=== PATIENT | male | born 1955 | race Caucasian/White ===

== ENCOUNTER 2017-06-24 08:07 | Emergency (ER) | payer OTHER ==
[~2017-06-24] VITALS: Ht 160 cm; Wt 89.0 kg
[2017-06-24 08:11] VITALS: Ht 160 cm; Wt 89.0 kg
[2017-06-24] MEDS ORDERED: DIPHENHYDRAMINE 25 MG CAP PO ONE (09:00)
[2017-06-24] MEDS ORDERED: LABETALOL HCL 20MG INJ IV ONE (09:00)
[2017-06-24] MEDS ORDERED: BENZTROPINE 1 MG TAB PO ONE (09:00)
[2017-06-24] MEDS ORDERED: HYDR12.58 PO (09:02)
[2017-06-24] MEDS ORDERED: CHLO25TA13 PO (09:02)
[2017-06-24] MEDS ORDERED: BENA40TA41 PO (09:03)
[2017-06-24] MEDS ORDERED: LABE300T PO (09:04)
[2017-06-24] MEDS ORDERED: TAMS-14 PO (09:04)
[2017-06-24] MEDS ORDERED: BEN50 PO (09:05)
[2017-06-24] MEDS ORDERED: NIFE30TA60 PO (09:05)
[2017-06-24] MEDS ORDERED: ASPI-664 PO (09:06)
[2017-06-24] MEDS ORDERED: ARIP2TAB8 PO (09:06)
[2017-06-24] MEDS ORDERED: FLUO20CA22 PO (09:06)
[2017-06-24 09:30] LABS: BASOPHILS % 0.5 % (0.0-2.0); EOSINOPHILS # 0.1 10^3/ul (0.0-0.5); EOSINOPHILS % 1.6 % (0.0-7.0); HEMATOCRIT 45.2 % (42.0-52.0); LYMPHOCYTES % 22.1 % (15.0-51.0); MEAN CORPUSCULAR HEMOGLOBIN 28.6 pg (29.0-33.0); MEAN CORPUSCULAR HGB CONC 33.2 g/dl (32.0-37.0); MEAN CORPUSCULAR VOLUME 86.1 fl (82.0-101.0); MEAN PLATELET VOLUME 10.3 fl (7.4-10.4); MONOCYTE # 0.4 10^3/ul (0.3-0.9); MONOCYTES % 4.4 % (0.0-11.0); NEUTROPHIL # 6.3 10^3/ul (1.6-7.5); NEUTROPHILS % 71.2 % (39.0-77.0); PLATELET COUNT 203 10^3/UL (140-415); RED BLOOD COUNT 5.25 10^6/ul (4.70-6.10); WHITE BLOOD COUNT 8.8 10^3/ul (4.8-10.8)
--- NOTE | 2017-06-24 09:37 | RADRPT ---
PROCEDURE: CT Brain without contrast. CLINICAL INDICATION: Neurologic deficit TECHNIQUE: A CT of the brain was performed on multidetector high-resolution CT scanner utilizing a xial sections from the skull base through the vertex without contrast. One or more of the following dose reduction techniques were used: Automated exposure control, Adjustment of the mA and/or kV acc ording to patient size, and/or use of iterative reconstruction technique. DOSE: CTDI = 44 mGy and the DLP = 810 mGy-cm. COMPARISON: None available FINDINGS: No acute intracranial hemorrhage or midline shift. Mild hypoattenuation of the cerebral white matter is compatible with chronic microvascular ischemic changes. Vascular calcifications. Enlarged ventri cles with relative effacement of sulci at the vertex may be due to central greater than peripheral v olume loss. No significant opacification of the visualized paranasal sinuses or mastoids. IMPRESSION: No acute intracranial hemorrhage or midline shift. Mild chronic microvascular disease and intracranial atherosclerosis. Enlarged ventricles with relative effacement of sulci at the vertex may be due to central greater th an peripheral volume loss. Alternatively in the appropriate clinical setting, normal pressure hydroc ephalus may also have this appearance. RPTAT: AA .Geovanny Mccartney MD, Date Time Electronically viewed and signed by .Geovanny Mccartney MD, MD on 06/24/2017 09:36 .T/
[2017-06-24 09:58] LABS: ALANINE AMINOTRANSFERASE 37 IU/L (13-69); ALBUMIN 4.3 g/dl (3.3-4.9); ALBUMIN/GLOBULIN RATIO 1.22; ALKALINE PHOSPHATASE 67 IU/L (42-121); ANION GAP 15 (8-16); ASPARTATE AMINO TRANSFERASE 25 IU/L (15-46); BILIRUBIN,INDIRECT 0.4 mg/dl (0-1.1); BILIRUBIN,TOTAL 0.4 mg/dl (0.2-1.3); BLOOD UREA NITROGEN 18 mg/dl (7-20); CALCIUM 10.2 mg/dl (8.4-10.2); CARBON DIOXIDE 28 mmol/L (21-31); CHLORIDE 104 mmol/L (97-110); CREATININE 1.13 mg/dl (0.61-1.24); GLUCOSE 138 mg/dl (70-220); POTASSIUM 4.1 mmol/L (3.5-5.1); SODIUM 143 mmol/L (135-144); TOTAL PROTEIN 7.8 g/dl (6.1-8.1)
[2017-06-24 10:11] LABS: TROPONIN-I < 0.012 ng/ml (0.00-0.12)
--- NOTE | 2017-06-24 11:24 | ERD ---
ER Documentation Chief Complaint Date/Time DATE: 06/24/17 TIME: 10:55 Chief Complaint HTN, FEELS SHAKY AT TIMES, HAS TREMORS ON HANDS HPI Patient is a 61-year-old male with schizophrenia and high blood pressure who presents with high blood pressure. The patient has a twitching of the mouth and arm recently. It started 2 days ago. He was told by his doctor to go to the emergency department. He had difficulty with standing. He has had no new medications. Upon review of old medical records this is the patient's first visit to the emergency department. ROS All systems reviewed and are negative except as per history of present illness. Medications Home Meds Reported Medications Aripiprazole* (Abilify*) 2 Mg Tablet, 2 MG PO DAILY, #30 TAB 06/24/17 Aspirin (Low Dose Aspirin) 81 Mg Tablet.dr, 81 MG PO DAILY, #30 TAB 06/24/17 Fluoxetine Hcl* (Fluoxetine Hcl*) 20 Mg Capsule, 20 MG PO DAILY, CAP 06/24/17 Diphenhydramine Hcl* (Benadryl*) 50 Mg Cap, 50 MG PO Q6 Y for ITCHING, CAP 06/24/17 Nifedipine* (Nifedipine ER*) 30 Mg Tablet.sa, 30 MG PO DAILY, TAB.SA 06/24/17 Labetalol Hcl* (Labetalol Hcl*) 300 Mg Tablet, 300 MG PO BID, TAB 06/24/17 Tamsulosin Hcl* (Flomax*) 0.4 Mg Cap.er.24h, 0.4 MG PO DAILY, CAP 06/24/17 Benazepril Hcl* (Benazepril Hcl*) 40 Mg Tablet, 40 MG PO DAILY, #30 TAB 06/24/17 Chlorthalidone* (Chlorthalidone*) 25 Mg Tablet, 25 MG PO DAILY, TAB 06/24/17 Hydrochlorothiazide* (Hydrochlorothiazide*) 12.5 Mg Tablet, 12.5 MG PO DAILY, # 30 TAB 06/24/17 Allergies Allergies: Coded Allergies: No Known Allergy (Unverified , 06/24/17) PMhx/Soc History of Surgery: No Anesthesia Reaction: No Hx Neurological Disorder: Yes (dementia) Hx Respiratory Disorders: No Hx Cardiac Disorders: Yes (htn) Hx Psychiatric Problems: Yes (schizophrenia) Hx Miscellaneous Medical Probl: Yes (borderline DM) Hx Alcohol Use: No Hx Substance Use: No Hx Tobacco Use: No Smoking Status: Never smoker FmHx Family History: No diabetes Physical Exam Vitals Vital Signs Date Time Temp Pulse Resp B/P Pulse Ox O2 Delivery O2 Flow Rate FiO2 06/24/17 12:05 66 23 135/99 99 Room Air 06/24/17 09:24 74 13 142/97 97 Room Air 06/24/17 08:11 98.8 88 18 168/99 99 Physical Exam Const: No acute distress Head: Atraumatic Eyes: Normal Conjunctiva ENT: Normal External Ears, Nose and Mouth. Neck: Full range of motion..~ No meningismus. Resp: Clear to auscultation bilaterally Cardio: Regular rate and rhythm, no murmurs Abd: Soft, non tender, non distended. Normal bowel sounds Skin: No petechiae or rashes Back: No midline or flank tenderness Ext: No cyanosis, or edema Neur: Awake and alert Psych: Normal Mood and Affect Result Diagram: 06/24/17 0900 06/24/17 0900 Results 24 hrs Laboratory Tests Test 06/24/17 09:00 White Blood Count 8.810^3/ul Red Blood Count 5.2510^6/ul Hemoglobin 15.0g/dl Hematocrit 45.2% Mean Corpuscular Volume 86.1fl Mean Corpuscular Hemoglobin 28.6pg Mean Corpuscular Hemoglobin Concent 33.2g/dl Red Cell Distribution Width 13.0% Platelet Count 20689^3/UL Mean Platelet Volume 10.3fl Neutrophils % 71.2% Lymphocytes % 22.1% Monocytes % 4.4% Eosinophils % 1.6% Basophils % 0.5% Nucleated Red Blood Cells % 0.0/100WBC Neutrophils # 6.310^3/ul Lymphocytes # 2.010^3/ul Monocytes # 0.410^3/ul Eosinophils # 0.110^3/ul Basophils # 0.010^3/ul Nucleated Red Blood Cells # 0.010^3/ul Sodium Level 143mmol/L Potassium Level 4.1mmol/L Chloride Level 104mmol/L Carbon Dioxide Level 28mmol/L Anion Gap 15 Blood Urea Nitrogen 18mg/dl Creatinine 1.13mg/dl Glucose Level 138mg/dl Calcium Level 10.2mg/dl Total Bilirubin 0.4mg/dl Direct Bilirubin 0.00mg/dl Indirect Bilirubin 0.4mg/dl Aspartate Amino Transf (AST/SGOT) 25IU/L Alanine Aminotransferase (ALT/SGPT) 37IU/L Alkaline Phosphatase 67IU/L Troponin I < 0.012ng/ml Total Protein 7.8g/dl Albumin 4.3g/dl Globulin 3.50g/dl Albumin/Globulin Ratio 1.22 Thyroid Stimulating Hormone (TSH) 1.100MIU/L Free Thyroxine 0.96ng/dl Current Medications Medications (Trade) Dose Ordered Sig/Nadria Route PRN Reason Start Time Stop Time Status Last Admin Dose Admin Labetalol HCl (Labetalol) 20 mg ONCE ONCE IV 06/24/17 09:00 06/24/17 09:01 DC 06/24/17 09:11 Benztropine Mesylate (Cogentin) 1 mg ONCE ONCE PO 06/24/17 09:00 06/24/17 09:01 DC 06/24/17 09:23 Diphenhydramine HCl (Benadryl) 25 mg ONCE ONCE PO 06/24/17 09:00 06/24/17 09:01 DC 06/24/17 09:12 Procedures/[facility] EKG read by me: Rate/Rhythm: First-degree AV block at a rate of 82 Intervals: Prolonged NH interval Impression: First-degree AV block without ischemia He is a 61-year-old male presents with hypertension and twitching. He was given Cogentin and Benadryl for possible dystonic reaction. Laboratory studies are basically normal. EKG shows no signs of ischemia. The patient was given labetalol IV for his blood pressure which has improved. I doubt stroke or other serious etiology at this time and I believe outpatient management is appropriate. The patient can return for any worsening symptoms. The patient should follow-up within 24-48 hours with his primary doctor. Departure Diagnosis: Primary Impression: Twitching Additional Impression: Hypertension Hypertension type: essential hypertension Qualified Code: I10 - Essential hypertension Condition: Fair Patient Instructions: High Blood Pressure (Hypertension) Additional Instructions: Llame al doctor MAANA y carmella nicole ANISA PARA DENTRO DE 1-2 LISA.Dgale a la secretaria que nosotros le instruimos hacer esta anisa.Avise o llame si benavides condicin se empeora antes de la anisa. Regresa aqui si peor o no mejor. CASSI RODRIGUEZ MD Jun 24, 2017 10:56
[2017-06-24 12:05] VITALS: BP 135/99; PULSE 66; RESP 23
== END 2017-06-24 12:22 | disposition home or self-care (01) ==
LOC: E/R 08:07
DX: R25.3 Fasciculation (principal); R40.2252 Coma scale, best verbal response, oriented, at arrival to emergency department; I10 Essential (primary) hypertension; R40.2142 Coma scale, eyes open, spontaneous, at arrival to emergency department; R40.2362 Coma scale, best motor response, obeys commands, at arrival to emergency department; Z79.82 Long term (current) use of aspirin
CPT/HCPCS: 70450; 80053; 84439; 84443; 84484; 85025; 93005; 96374; Z7502; Z7610

== ENCOUNTER 2018-10-01 15:33 | Inpatient (IN) | payer OTHER ==
[~2018-10-01] VITALS: Ht 182.9 cm; Wt 130.0 kg
[~2018-10-01 15:33] MED LIST: ARIP2TAB17 PO; ASPI81TA52 PO; BEN50 PO; BENA40TA56 PO; CHLO25TA2 PO; FLUO20CA22 PO; HYDR12.58 PO; LABE300T2 PO; NIFE30TA23 PO; TAMS-14 PO
[2018-10-01 15:40] VITALS: Ht 182.9 cm; Wt 130.0 kg
[2018-10-01] MEDS ORDERED: ONDANSETRON 4 MG INJ IV STA (16:06)
[2018-10-01] MEDS ORDERED: SOD CHLORIDE 0.9% 1,000 ML IV STA (16:06)
--- NOTE | 2018-10-01 16:11 | ERD ---
ER Documentation Chief Complaint Chief Complaint SOB, WEAKNESS, VOMITING X 1 DAY; DX RECENT DM HPI 63-year-old gentleman who presents to the emergency with generalized malaise, shortness of breath and abdominal distention with associated nausea and vomiting. He describes less than 24 hours of symptoms after eating "some food ". Patient describes 4 episodes of nonbloody nonbilious emesis. He denies any diarrhea, mild epigastric abdominal cramping without radiation to the back. He denies any chest pressure or pain, no pleuritic pain. He does note some diaphoresis. No recent travel, sick contacts, antibiotics. Accu-Chek less than 200. ROS All systems reviewed and are negative except as per history of present illness. Medications Home Meds Reported Medications Diphenhydramine Hcl* (Benadryl*) 50 Mg Cap, 50 MG PO QHS PRN for ITCHING, CAP 10/01/18 Aripiprazole* (Abilify*) 5 Mg Tab, 5 MG PO DAILY, #30 TAB 10/01/18 Aspirin* (Aspirin* EC) 81 Mg Tablet.dr, 81 MG PO DAILY, TAB 10/01/18 Fluoxetine Hcl* (Fluoxetine Hcl*) 20 Mg Capsule, 40 MG PO DAILY, CAP 10/01/18 Nifedipine* (Nifedipine ER*) 30 Mg Tablet.sa, 30 MG PO DAILY, TAB.SA 10/01/18 Labetalol Hcl* (Labetalol Hcl*) 300 Mg Tablet, 300 MG PO DAILY, TAB 10/01/18 Tamsulosin Hcl* (Tamsulosin Hcl*) 0.4 Mg Cap.er.24h, 0.4 MG PO HS, CAP 10/01/18 Benazepril Hcl* (Benazepril Hcl*) 40 Mg Tablet, 40 MG PO DAILY, #30 TAB 10/01/18 Chlorthalidone* (Chlorthalidone*) 25 Mg Tablet, 25 MG PO DAILY, TAB 10/01/18 Hydrochlorothiazide* (Hydrochlorothiazide*) 12.5 Mg Tablet, 12.5 MG PO DAILY, #30 TAB 10/01/18 Discontinued Reported Medications Aripiprazole* (Abilify*) 2 Mg Tablet, 2 MG PO DAILY, #30 TAB 06/24/17 Aspirin (Low Dose Aspirin) 81 Mg Tablet.dr, 81 MG PO DAILY, #30 TAB 06/24/17 Fluoxetine Hcl* (Fluoxetine Hcl*) 20 Mg Capsule, 20 MG PO DAILY, CAP 06/24/17 Diphenhydramine Hcl* (Benadryl*) 50 Mg Cap, 50 MG PO Q6 PRN for ITCHING, CAP 06/24/17 Nifedipine* (Nifedipine ER*) 30 Mg Tablet.sa, 30 MG PO DAILY, TAB.SA 06/24/17 Labetalol Hcl* (Labetalol Hcl*) 300 Mg Tablet, 300 MG PO BID, TAB 06/24/17 Tamsulosin Hcl* (Flomax*) 0.4 Mg Cap.er.24h, 0.4 MG PO DAILY, CAP 06/24/17 Benazepril Hcl* (Benazepril Hcl*) 40 Mg Tablet, 40 MG PO DAILY, #30 TAB 06/24/17 Chlorthalidone* (Chlorthalidone*) 25 Mg Tablet, 25 MG PO DAILY, TAB 06/24/17 Hydrochlorothiazide* (Hydrochlorothiazide*) 12.5 Mg Tablet, 12.5 MG PO DAILY, #30 TAB 06/24/17 Allergies Allergies: Coded Allergies: No Known Allergy (Unverified , 10/01/18) PMhx/Soc History of Surgery: No Anesthesia Reaction: No Hx Neurological Disorder: Yes (dementia) Hx Respiratory Disorders: No Hx Cardiac Disorders: Yes (htn) Hx Psychiatric Problems: Yes (schizophrenia) Hx Miscellaneous Medical Probl: Yes (borderline DM) Hx Alcohol Use: No Hx Substance Use: No Hx Tobacco Use: No FmHx Family History: No diabetes Physical Exam Vitals Vital Signs Date Temp Pulse Resp B/P (MAP) Pulse Ox O2 O2 Flow FiO2 Time Delivery Rate 10/01/18 98.1 102 20 126/90 97 Nasal 2.0 19:12 (102) Cannula 10/01/18 110 18 142/117 94 Room Air 16:29 (125) 10/01/18 98.1 121 24 134/97 96 15:40 (109) Physical Exam General: Slightly diaphoretic but conversive in full sentences Ress Head: Normocephalic, atraumatic. Eyes: Pupils equally reactive, EOM intact ENT: Moist mucous membranes Neck: Supple, no lymphadenopathy Respiratory: Lungs clear bilaterally, no distress Cardiovascular: Tachycardia, no murmurs, rubs, or gallops Abdominal: Protuberant and slightly firm but no peritonitis and no focal tenderness. Negative Burton sign : Deferred MSK: No edema, no unilateral swelling, 5/5 strength Neurologic: Alert and oriented, moving all extremities, normal speech, no focal weakness, no cerebellar signs Skin: No rash Psych: Normal mood Result Diagram: 10/01/18 1605 10/01/18 1605 Results 24 hrs Laboratory Tests Test 10/01/18 15:49 10/01/18 16:05 10/01/18 17:03 10/01/18 21:35 Bedside Glucose 191 mg/dL White Blood Count 22.4 10^3/ul Red Blood Count 6.35 10^6/ul Hemoglobin 18.2 g/dl Hematocrit 53.7 % Mean Corpuscular 84.6 fl Volume Mean Corpuscular 28.7 pg Hemoglobin Mean Corpuscular 33.9 g/dl Hemoglobin Concent Red Cell 12.4 % Distribution Width Platelet Count 294 10^3/UL Mean Platelet 10.3 fl Volume Immature 0.500 % Granulocytes % Neutrophils % % Segmented 76 % Neutrophils % (Manual) Band Neutrophils % 16 % (Manual) Lymphocytes % % Lymphocytes % 3 % (Manual) Monocytes % % Monocytes % 5 % (Manual) Eosinophils % % Basophils % % Nucleated Red Blood 0.0 /100WBC Cells % Immature 0.120 10^3/ul Granulocytes # Neutrophils # 10^3/ul Neutrophils # 17.8 10^3/ul (Manual) Band Neutrophils # 3.5 10^3/ul Lymphocytes 0.6 10^3/ul (Manual) Lymphocytes # 10^3/ul Monocytes # 10^3/ul Monocytes # 1.1 10^3/ul (Manual) Eosinophils # 10^3/ul Basophils # 10^3/ul Nucleated Red Blood 10^3/ul Cells # Pathologist YES Review (Hematology) Platelet Estimate NORMAL Giant Platelets 1 % Poikilocytosis 2+ Anisocytosis 1+ Microcytosis 1+ Ovalocytes 1+ Sodium Level 138 mmol/L Potassium Level 4.7 mmol/L Chloride Level 98 mmol/L Carbon Dioxide 25 mmol/L Level Anion Gap 15 Blood Urea Nitrogen 20 mg/dl Creatinine 1.18 mg/dl Est Glomerular > 60 mL/min Filtrat Rate mL/min Glucose Level 182 mg/dl Calcium Level 10.5 mg/dl Total Bilirubin 0.8 mg/dl Direct Bilirubin 0.00 mg/dl Indirect Bilirubin 0.8 mg/dl Aspartate Amino 49 IU/L Transf (AST/SGOT) Alanine 28 IU/L Aminotransferase (A LT/SGPT) Alkaline 60 IU/L Phosphatase Troponin I < 0.012 ng/ml Total Protein 8.3 g/dl Albumin 4.9 g/dl Globulin 3.40 g/dl Albumin/Globulin 1.44 Ratio Lipase 4221 U/L Urine Color LEIGH ANN Urine Clarity SLIGHTLY CLOUDY Urine pH 5.0 Urine Specific 1.032 [place] Urine Ketones TRACE mg/dL Urine Nitrite NEGATIVE mg/dL Urine Bilirubin NEGATIVE mg/dL Urine Urobilinogen NEGATIVE mg/dL Urine Leukocyte NEGATIVE [place]/ul Esterase Urine Microscopic 3 /HPF RBC Urine Microscopic 9 /HPF WBC Urine Squamous FEW /HPF Epithelial Cells Urine Bacteria FEW /HPF Urine Mucus FEW /HPF Urine Hemoglobin 2+ mg/dL Urine Glucose NEGATIVE mg/dL Urine Total Protein 3+ mg/dl Lactic Acid Level 1.8 mmol/L Current Medications Medications Dose Sig/Andria Start Time Status Last (Trade) Ordered Route PRN Stop Time Admin Dose Reason Admin Sodium 1,000 ml @ Q1H STAT 10/01/18 DC 10/01/18 Chloride 1,000 mls/hr IV 16:06 10/01/18 16:26 17:05 Ondansetron 4 mg ONCE STAT 10/01/18 DC 10/01/18 HCl (Zofran IV 16:06 10/01/18 16:26 Inj) 16:07 Sodium 2,830 ml BOLUS OVER 2 10/01/18 DC 10/01/18 Chloride HOURS STAT 17:45 10/01/18 18:06 (NS) IV* 17:46 Cefepime HCl 50 ml @ ONCE STAT 10/01/18 DC 10/01/18 100 mls/hr IVPB 17:45 10/01/18 18:08 18:14 Vancomycin 250 ml @ ONCE ONCE 10/01/18 DC 10/01/18 HCl 125 mls/hr IVPB 18:00 10/01/18 18:55 19:59 Clindamycin 50 ml @ 50 ONCE STAT 10/01/18 DC 10/01/18 HCl/ mls/hr IVPB 17:45 10/01/18 18:55 Dextrose 18:44 Procedures/MDM EKG, MONITORS, & DIAGNOSTIC IMAGING: EKG: I reviewed and interpreted a 12-lead EKG. Rhythm: Sinus tachycardia ST Changes: No contiguous ST segment elevations T waves: No contiguous T wave inversions Impression: [No evidence of acute cardiac ischemia] Chest x-ray: IMPRESSION: 1. Normal chest radiograph. RPTAT: QQ CT abdomen and pelvis: IMPRESSION: Stranding peripancreatic fat with small volume ascites - rule out pancreatitis. Multiple small pockets of extraluminal gas along the head and tail of pancreas as described. Rule out superimposed infection with gas-forming organism. No discrete abscess identified. 4 mm nonobstructing right renal calculus. Tiny gallstones. No choledocholithiasis seen. LAB INTERPRETATION: * Leukocytosis of 22 * Normal creatinine, normal lactic acid, elevated lipase of 4221 MEDICAL DECISION MAKING: Patient presents with nausea and vomiting, abdominal distention and shortness of breath. He is slightly diaphoretic and tachycardic. Consider possible dehydration. This seems less likely secondary to cardiac etiology but given age and risk factors EKG and troponin will be reasonable. Patient has a protuberant and slightly firm abdomen. While he is nontender given his diabetes this could represent acute intra-abdominal process and CT imaging would be indicated. In the end this may be a viral process but the patient warrants a thorough workup including laboratory testing and advanced imaging. ER COURSE: * A peripheral line was inserted and the patient was given IV fluids and Zofran. No significant pain currently. * The patient was given IV fluids and pain control medication. His laboratory testing shows evidence of acute pancreatitis. * CT imaging shows evidence of pancreatitis however there is possible extraluminal air. I discussed the case with on-call surgeon Dr. Panda. He states that the patient may require a hepatobiliary surgeon and recommends transfer. He cannot accept the case. * Unfortunately the patient has been in the emergency room for a prolonged period of time. Multiple phone calls to different facilities were made that include [facility], [facility], [facility], [facility] and [facility]el Bailey. At this time no facility has been able to accept the patient either based on no hepatobiliary surgeon coverage or no available beds. Please see secretary to board of commissioners documentation for these issues. * I additionally contacted Dr. Kaci Martinez who does have privileges at our facility. He states that he cannot consult on the patient given that he is not available for at least 2-3 days. * At this point I cannot appropriately admit the patient to my facility given no accepting surgeon and potentially complicated case. I discussed these issues with the patient and family. He is resting comfortably. Empiric * Antibiotics were provided given possibility of necrosis. * The family understands that they may have a prolonged stay in the emergency room until we can attempt to find placement for this patient. We will continue to make contact with the facilities. CONSULTATION: Surgery as above DISPOSITION PLAN: pending placement Departure Diagnosis: Primary Impression: Acute pancreatitis Pancreatitis type: unspecified pancreatitis type Acute pancreatitis complication: unspecified Qualified Codes: K85.90 - Acute pancreatitis without necrosis or infection, unspecified Additional Impressions: Leukocytosis Leukocytosis type: unspecified Qualified Codes: D72.829 - Elevated white blood cell count, unspecified Epigastric abdominal pain Condition: Stable ASHLEY NICOLE MD Oct 01, 2018 16:11
[2018-10-01] MEDS ORDERED: HYDR12.58 PO (16:37)
[2018-10-01] MEDS ORDERED: CHLO25TA2 PO (16:39)
[2018-10-01] MEDS ORDERED: BENA40TA56 PO (16:39)
[2018-10-01] MEDS ORDERED: TAMS0.4C2 PO (16:40)
[2018-10-01] MEDS ORDERED: LABE300T2 PO (16:41)
[2018-10-01] MEDS ORDERED: FLUO20CA22 PO (16:42)
[2018-10-01] MEDS ORDERED: NIFE30TA23 PO (16:42)
[2018-10-01] MEDS ORDERED: ASPI-817 PO (16:43)
[2018-10-01] MEDS ORDERED: ARIP5TAB14 PO (16:43)
[2018-10-01] MEDS ORDERED: BEN50 PO (16:44)
[2018-10-01] MEDS ORDERED: SODIUM CHLORIDE 0.9% 1L BAG IV* STA (17:45)
[2018-10-01] MEDS ORDERED: CLINDAMYCIN 900 MG/D5W (PMX) 50 ML IVPB STA (17:45)
[2018-10-01] MEDS ORDERED: CEFEPIME 2GM/50 ML (PMX) 50 ML IVPB STA (17:45)
[2018-10-01] MEDS ORDERED: VANCOMYCIN 1 GM (PMX) 250 ML IVPB ONE (18:00)
--- NOTE | 2018-10-01 23:57 | CONS ---
Date/Time of Note Date/Time of Note DATE: 10/01/18 TIME: 23:56 Assessment/Plan Assessment/Plan Hospital Course 1. Acute pancreatitis possibly secondary to gallstones versus other etiologies. Gas bubbles with suggestions of infection with gas-forming bacteria. The patient needs hepatobiliary surgeon to be involved in case he develops pancreatic necrosis, infection, abscess, with need for debridement. Since hepatobiliary surgeon is not easily available, I recommend transfer to tertiary center [facility]. -IV antibiotics -N.p.o. -Judicious IV fluid resuscitation -Bull to monitor urine output for resuscitation -Pain control -Monitored setting specially for pulmonary status -Eventual nasojejunal feeding tube to start tube feeds -Hepatobiliary surgical evaluation and regular follow-up 2. Tiny gallstones -As above 3. BMI 39 with morbid obesity -Highly encourage eventual nutritional optimization -Highly encouraged eventual exercise 4. Hypertension -Diet and medication optimization -Highly encouraged weight loss 5. Prediabetes -Nutrition optimization -Highly encouraged weight loss 6. Schizophrenia, mild per family -Psychiatric optimization 7. Dementia -Medical management Thank you very much for consulting me this patient's care, Result Diagram: 10/01/18 1605 10/01/18 1605 Results 24hrs Laboratory Tests Test 10/01/18 15:49 10/01/18 16:05 10/01/18 17:03 10/01/18 21:35 Bedside Glucose 191 White Blood Count 22.4 #H Red Blood Count 6.35 #H Hemoglobin 18.2 #H Hematocrit 53.7 H Mean Corpuscular 84.6 Volume Mean Corpuscular 28.7 L Hemoglobin Mean Corpuscular 33.9 Hemoglobin Concent Red Cell 12.4 Distribution Width Platelet Count 294 # Mean Platelet 10.3 Volume Immature 0.500 H Granulocytes % Neutrophils % Segmented 76 Neutrophils % (Manual) Band Neutrophils % 16 H (Manual) Lymphocytes % Lymphocytes % 3 L (Manual) Monocytes % Monocytes % 5 (Manual) Eosinophils % Basophils % Nucleated Red 0.0 Blood Cells % Immature 0.120 H Granulocytes # Neutrophils # Neutrophils # 17.8 H (Manual) Band Neutrophils # 3.5 H Lymphocytes 0.6 L (Manual) Lymphocytes # Monocytes # Monocytes # 1.1 H (Manual) Eosinophils # Basophils # Nucleated Red Blood Cells # Pathologist YES Review (Hematology ) Platelet Estimate NORMAL Giant Platelets 1 H Poikilocytosis 2+ Anisocytosis 1+ Microcytosis 1+ Ovalocytes 1+ Sodium Level 138 Potassium Level 4.7 Chloride Level 98 Carbon Dioxide 25 Level Anion Gap 15 H Blood Urea 20 Nitrogen Creatinine 1.18 Est Glomerular > 60 Filtrat Rate mL/min Glucose Level 182 Calcium Level 10.5 H Total Bilirubin 0.8 Direct Bilirubin 0.00 Indirect Bilirubin 0.8 Aspartate Amino 49 H Transf (AST/SGOT) Alanine 28 Aminotransferase ( ALT/SGPT) Alkaline 60 Phosphatase Troponin I < 0.012 Total Protein 8.3 H Albumin 4.9 Globulin 3.40 H Albumin/Globulin 1.44 Ratio Lipase 4221 H Urine Color LEIGH ANN Urine Clarity SLIGHTLY CLOUDY A Urine pH 5.0 Urine Specific 1.032 H [place] Urine Ketones TRACE A Urine Nitrite NEGATIVE Urine Bilirubin NEGATIVE Urine Urobilinogen NEGATIVE Urine Leukocyte NEGATIVE Esterase Urine Microscopic 3 RBC Urine Microscopic 9 H WBC Urine Squamous FEW Epithelial Cells Urine Bacteria FEW A Urine Mucus FEW A Urine Hemoglobin 2+ H Urine Glucose NEGATIVE Urine Total 3+ H Protein Lactic Acid Level 1.8 Consultation Date/Type/Reason Admit Date/Time Date of Consultation: Oct 01, 2018 Type of Consult General surgical Reason for Consultation Acute pancreatitis Significant leukocytosis Possible gas-forming infection Requesting Provider: ASHLEY NICOLE MD Hx of Present Illness Jose Wright is a 63yo male with multiple comorbidities who presents to the emergency with generalized malaise, shortness of breath, abdominal pain, and abdominal distention with associated nausea and vomiting for the past day after he was eating cookies. Patient describes 4 episodes of nonbloody nonbilious emesis. Pain is epigastric and left upper quadrant without radiation. Pain is crampy and sharp. He has had previous history of similar pain about a month ago which resolved on its own. He denies any chest pressure or pain. He does note some diaphoresis. No trauma, recent travel, sick contacts, antibiotics. No cough, seizure, visual, neurologic changes. No dysuria. Recent bowel function was normal. Patient is accompanied by his and daughter. His workup in the emergency room identified tachycardia however normal blood pressure. He has pancreatitis and CT with gas bubbles around the pancreas. Surgical consult is obtained further evaluation and treatment. 12 point review of system is negative unless otherwise addressed in chart Past Medical History BMI 39 Borderline diabetes Hypertension Dementia Schizophrenia Gallstones Acute pancreatitis with probable infection Acute leukocytosis Normal LFT Ventral hernia Nonobstructing right renal calculus Allergies: Coded Allergies: No Known Allergy (Unverified , 10/01/18) Past Surgical History Past Surgical Hx: no surgical history Family History Significant Family History: no pertinent family hx Social History Alcohol Use: rarely Smoking Status: Never smoker Drug Use: none Exam/Review of Systems Vital Signs Vitals Vital Signs Date Temp Pulse Resp B/P (MAP) Pulse Ox O2 O2 Flow FiO2 Time Delivery Rate 10/01/18 98.1 102 20 126/90 97 Nasal 2.0 19:12 (102) Cannula Exam Constitutional: alert, oriented, distress (Mild), obese Psych: anxiety; No confusion Head: normocephalic, atraumatic Eyes: nl conjunctiva, EOMI, PERRL; No icteric ENMT: nl external ears & nose, nl lips & teeth Neck: supple, non-tender; No jvd Respiratory: normal air movement, labored breathing (Minimal); No congested cough, No wheezing Cardiovascular: No regular rate and rhythm (Tachycardic), No edema Gastrointestinal: soft, distended, tender (Minimal), other (Ventral umbilical hernia); No rebound or guarding Genitourinary - Male: nl scrotum Musculoskeletal: nl extremities to inspection; No joint tenderness Extremities: normal pulses; No calf tenderness, No cyanosis Neurological: nl mental status, nl speech, nl strength Skin: nl turgor; No rash or lesions, No diaphoresis Lymph: nl lymph nodes Imaging Imaging CT abdomen and pelvis: The lung bases are clear of any infiltrate or nodule. No effusion is seen. Liver is enlarged measuring 23.4 cm in length. There is fatty infiltration. No mass or ductal dilatation is present. There are tiny stones in the dependent gallbladder. No splenic or adrenal abnormalities present. no pancreatic mass or ductal dilatation is present. There is stranding of the peripancreatic fat in th e lesser sac. No discrete collection or extraluminal gas is seen. Findings are compatible with pancreatitis. There is small volume of fluid tracking along the right and left paracolic gutter with trace pelvic ascites. However, there are also multiple small pockets of extraluminal gas visualized posterior and superior to the distal tail of the pancreas and posterior and superior to the head of the pancreas. Findings likely represent evidence of superimposed infection with gas-forming organism. Kidneys are of normal size and contour. No hydronephrosis or masses seen. There is a 4 mm nonobstructing stone in the mid to upper pole of the right kidney. Ureters are of normal course and caliber with no stone. No bladder mass or stone is present. Prostate and seminal vesicles are normal. There is no aneurysm. No adenopathy is present. No bowel mass or obstruction is present. The appendix is normal. No pneumoperitoneum is visualized. The osseous structures are intact. IMPRESSION: Stranding peripancreatic fat with small volume ascites - rule out pancreatitis. Multiple small pockets of extraluminal gas along the head and tail of pancreas as described. Rule out superimposed infection with gas-forming organism. No discrete abscess identified. 4 mm nonobstructing right renal calculus. Tiny gallstones. No choledocholithiasis seen. RAIN JARQUIN MD Oct 01, 2018 23:57
[2018-10-02] MEDS ORDERED: ALBUTEROL 0.083% (NEB) 2.5 MG/3 ML AMP HHN ONE (02:02)
[2018-10-02] MEDS ORDERED: IPRATROPIUM (NEB) 0.5 MG/2.5 ML AMP HHN ONE (02:03)
[2018-10-02] MEDS ORDERED: SOD CHLORIDE 0.9% 1,000 ML IV STA (07:23)
[2018-10-02] MEDS ORDERED: VANCOMYCIN IV PER PHARMACY XX SCH (10:00)
[2018-10-02] MEDS ORDERED: CEFEPIME 1GM/50 ML (PMX) 50 ML IVPB ONE (11:00)
[2018-10-02] MEDS ORDERED: VANCOMYCIN 1 GM in 250 ML IVPB ONE (11:30)
--- NOTE | 2018-10-02 13:02 | PN ---
Date/Time of Note Date/Time of Note DATE: 10/02/18 TIME: 12:58 Assessment/Plan Lines/Catheters IV Catheter Type (from Nrs): Saline Lock Assessment/Plan Chief Complaint/Hosp Course 1. Acute pancreatitis possibly secondary to gallstones versus other etiologies. Gas bubbles with suggestions of infection with gas-forming bacteria. The patient needs hepatobiliary surgeon to be involved in case he develops pancreatic necrosis, infection, abscess, with need for debridement. Since hep atobiliary surgeon is not easily available, recommend transfer to tertiary center [facility]> tx to [facility]. -IV antibiotics -N.p.o. -Judicious IV fluid resuscitation -Bull to monitor urine output for resuscitation -Pain control -Monitored setting specially for pulmonary status -Eventual nasojejunal feeding tube to start tube feeds -Hepatobiliary surgical evaluation and regular follow-up 2. Tiny gallstones -As above 3. BMI 39 with morbid obesity -Highly encourage eventual nutritional optimization -Highly encouraged eventual exercise 4. Hypertension -Diet and medication optimization -Highly encouraged weight loss 5. Prediabetes -Nutrition optimization -Highly encouraged weight loss 6. Schizophrenia, mild per family -Psychiatric optimization 7. Dementia -Medical management 8. Leukocytosis: uptrending -as above Thank you. Patient seen and examined in collaboration with Dr. Jason Panda. Subjective 24 Hr Interval Summary Abdominal pain improved but still persistent. tachycardic and tachypneic. No sob, congested cough, cp, palpitations, mitchell, dizziness, n/v/d/dysuria. Transfer pending. Exam/Review of Systems Vital Signs Vitals Vital Signs Date Temp Pulse Resp B/P (MAP) Pulse Ox O2 O2 Flow FiO2 Time Delivery Rate 10/02/18 104 29 149/109 97 Nasal 3.0 10:50 (122) Cannula 10/02/18 98.9 05:28 Exam Free Text/Dictation Constitutional: alert, oriented, distress (Mild), obese Psych: anxiety; No confusion Head: normocephalic, atraumatic Eyes: nl conjunctiva, EOMI, PERRL; No icteric ENMT: nl external ears & nose, nl lips & teeth Neck: supple, non-tender; No jvd Respiratory: normal air movement, labored breathing (Minimal); No congested cough, No wheezing Cardiovascular: No regular rate and rhythm (Tachycardic), No edema Gastrointestinal: soft, distended, tender (Minimal), other (Ventral umbilical hernia); No rebound or guarding Genitourinary - Male: nl scrotum Musculoskeletal: nl extremities to inspection; No joint tenderness Extremities: normal pulses; No calf tenderness, No cyanosis Neurological: nl mental status, nl speech, nl strength Skin: nl turgor; No rash or lesions, No diaphoresis Lymph: nl lymph nodes Results Result Diagram: 10/02/18 1024 10/02/18 1024 LESLYE ROJAS NP Oct 02, 2018 13:02
[2018-10-02] MEDS ORDERED: LABETALOL HCL 20MG INJ IV ONE (13:30)
[2018-10-02] MEDS ORDERED: SOD CHLORIDE 0.9% 1,000 ML IV SCH (19:13)
--- NOTE | 2018-10-02 19:13 | HP ---
Date/Time of Note Date/Time of Note DATE: 10/02/18 TIME: 19:08 Assessment/Plan VTE Prophylaxis Pharmacological prophylaxis: heparin Lines/Catheters [facility] Saline Lock Assessment/Plan Hospital Course 63 yo male with ho of DMII, obesity, hypertension obesity who presents wtih gall stone pancreatitis with CT showing multiple small pockets of extraluminal gas visualized posterior and superior to the distal tail of the pancreas and posterior and superior to the head of the pancreas. Findings likely represent evidence of superimposed infection with gas-forming organism. - Will continue on IV fluids - Dr Christine has agreed to consult on this patient, await his opinion - Will continue IV abx given concern for infeciotn DMII; - Basal/bolus insulin Result Diagram: 10/02/18 1024 10/02/18 1024 Results 24hrs Laboratory Tests Test 10/01/18 21:35 10/02/18 10:17 10/02/18 10:24 Lactic Acid Level 1.8 Bedside Glucose 135 White Blood Count 29.4 #H Red Blood Count 5.86 Hemoglobin 17.0 Hematocrit 50.7 Mean Corpuscular Volume 86.5 Mean Corpuscular Hemoglobin 29.0 Mean Corpuscular Hemoglobin Concent 33.5 Red Cell Distribution Width 13.1 Platelet Count 231 # Mean Platelet Volume 10.5 H Immature Granulocytes % 1.500 H Segmented Neutrophils % (Manual) 75 Band Neutrophils % (Manual) 18 H Lymphocytes % (Manual) 1 L Monocytes % (Manual) 5 Metamyelocytes % (manual) 1 H Nucleated Red Blood Cells % 0.0 Immature Granulocytes # 0.430 H Neutrophils # (Manual) 23.6 H Band Neutrophils # 5.2 H Lymphocytes (Manual) 0.2 L Monocytes # (Manual) 1.4 H Metamyelocytes # 0.2 H White Cell Morphology Comment @See below Platelet Estimate NORMAL Anisocytosis 1+ Macrocytosis 1+ Red Cell Morphology Comment @See below Sodium Level 142 Potassium Level 4.3 Chloride Level 104 Carbon Dioxide Level 27 Anion Gap 11 Blood Urea Nitrogen 24 H Creatinine 1.13 Est Glomerular Filtrat Rate mL/min > 60 Glucose Level 148 Calcium Level 9.4 Total Bilirubin 0.6 Direct Bilirubin 0.00 Indirect Bilirubin 0.6 Aspartate Amino Transf (AST/SGOT) 38 Alanine Aminotransferase (ALT/SGPT) 24 Alkaline Phosphatase 53 Total Protein 7.3 # Albumin 4.1 Globulin 3.20 Albumin/Globulin Ratio 1.28 Lipase 1464 H HPI/ROS Admit Date/Time Admit Date/Time Hx of Present Illness 63 yo male with h/o morbid obesity, DMII, schizophrenia who presented yesterday with abdominal pain Patient found to have severe pancreatitis with gas and possible gangrene. Transfer to higher level of care was recommended by consulting general surgeon Dr Panda. However, Dr Shields from ED says he has tried without success to have the patient transferred so he will be admitted to this hospital under guidance from chief of medicine. Patient's pain currently controlled PMH/Family/Social Past Medical History Medical History: no pertinent history, diabetes Medications Current Medications Vancomycin HCl (Vanco Iv Per Pharmacy) 1 ea PER PROTOCOL XX ; Start 10/02/18 at 10:00 Vancomycin HCl 1.25 gm/Sodium Chloride 250 ml @ 83.333 mls/ hr Q12H IVPB ; Start 10/02/18 at 23:00 Ondansetron HCl (Zofran Inj) 4 mg BRIDGE ORDER PRN IV NAUSEA AND/OR VOMITING; Start 10/02/18 at 19:30; Stop 10/03/18 at 19:29 Acetaminophen (Tylenol Tab) 650 mg ER BRIDGE PRN PO MILD PAIN(1-3)OR ELEVATED TEMP; Start 10/02/18 at 19:30; Stop 10/03/18 at 19:29 Coded Allergies: No Known Allergy (Unverified , 10/01/18) Past Surgical History Past Surgical Hx: no surgical history Family History Significant Family History: no pertinent family hx Social History Alcohol Use: rarely Smoking Status: Never smoker Drug Use: none Exam/Review of Systems Vital Signs Vitals Vital Signs Date Temp Pulse Resp B/P (MAP) Pulse Ox O2 O2 Flow FiO2 Time Delivery Rate 10/02/18 98.3 106 21 146/109 98 Nasal 3.0 19:06 (121) Cannula Exam Exam Morbid obesity Resting comfortably in no distress AOX3 RRR CTAB Abdomen obese, firm but not tense, no rebound or guarding ANIBAL CARBALLO MD Oct 02, 2018 19:13
[2018-10-02] MEDS ORDERED: NACL 0.9% 3 ML SYG IV SCH (19:30)
[2018-10-02] MEDS ORDERED: HYDROmorphONE 0.5 MG/0.5 ML SYG IV PRN (19:30)
[2018-10-02] MEDS ORDERED: ONDANSETRON 4 MG INJ IV PRN (19:30)
[2018-10-02 21:09] VITALS: BP 160/100; PULSE 100; RESP 22
[2018-10-02] MEDS: HEPARIN 5,000 UNIT/1 ML VIAL SC SCH (21:21)
[2018-10-02] MEDS ORDERED: VANCOMYCIN HCL 1.5 GM in SOD CHLORIDE 0.9% 250 ML IVPB SCH (22:00)
[2018-10-02] MEDS: ACETAMINOPHEN 325 MG TAB PO PRN (22:06)
[2018-10-02 22:08] VITALS: BP 150/90
[2018-10-02 23:03] VITALS: BP 152/92
[2018-10-02] MEDS ORDERED: LEVALBUTEROL (NEB) 1.25 MG/0.5 ML AMP HHN PRN (23:30)
[2018-10-02] MEDS ORDERED: IPRATROPIUM (HFA) 12.9 GM INHALER INH PRN (23:30)
[2018-10-02] MEDS ORDERED: IPRATROPIUM (NEB) 0.5 MG/2.5 ML AMP HHN PRN (23:30)
[2018-10-02] MEDS ORDERED: FUROSEMIDE 40 MG INJ ONE (23:43)
--- NOTE | 2018-10-02 23:45 | EN ---
Date/Time of Note Date/Time of Note DATE: 10/02/18 TIME: 23:44 Event Note Medicine Medicine Event Note Acute event Note Called by nurse as patient noted to be in respiratory distress. Stat Nebs and chest xray ordered. Patient seen at approximately 11:45 PM Patient noted to be in mild respiratory distress. On examination bilateral expiratory wheezing. No lower extremity edema. Patient denies any chest pain. Patient's nebulization treatments earlier did help improve his shortness of breath however he continued to be in distress and have wheezing on examination. Stat chest x-ray was ordered which did show evidence of pulmonary congestion. Patient denies any chest pain. General: Patient sitting upright in bed in mild respiratory distress, currently on 3 L nasal cannula CVS: Sinus tachycardia, JVD unable to be assessed given patient's body habitus Lungs: Bilateral expiratory wheezing diffusely Extremities: No lower extremity edema Stat chest x-ray: Evidence of pulmonary congestion, will await the official read Assessment and plan: #1 acute respiratory distress: Secondary likely to volume overload from aggressive IV fluid hydration for underlying pancreatitis at the current time will hold IV fluids. Stat ABG. I feel the patient will likely benefit from Vapotherm/versus BiPAP. I will give a dose of Lasix 40 mg IV x1. Given his pancreatitis and need for fluids at the current time I will also give him albumin 25% x2. Will transfer the patient to telemetry floor for closer monitoring. Check an echocardiogram. Greater than 25 minutes of critical care time was spent on care management this patient. ISABEL FERRERA Oct 02, 2018 23:45
[2018-10-02] MEDS: VANCOMYCIN HCL 1.25 GM in SOD CHLORIDE 0.9% 250 ML IVPB SCH (23:46)
[2018-10-03] VITALS (14 sets, daily range): BP systolic 128–173; BP diastolic 85–102; PULSE 83–113; RESP 18–22
[2018-10-03] MEDS ORDERED: FUROSEMIDE 40 MG INJ IV ONE
[2018-10-03] MEDS ORDERED: DIPHENHYDRAMINE 50 MG CAP PO PRN (00:30)
[2018-10-03] MEDS: ACETAMINOPHEN 325 MG TAB PO PRN (01:06)
[2018-10-03] MEDS ORDERED: PIPER-TAZO 3.375 GM IV (PMX) 100 ML IVPB SCH (02:00)
[2018-10-03] MEDS: PIPER-TAZO 3.375 GM IV (PMX) 100 ML IVPB SCH ×5 (02:24→23:40)
[2018-10-03] MEDS: NIFEdipine (XL) 30 MG TAB PO SCH (08:46)
[2018-10-03] MEDS: FLUOXETINE 20 MG CAP PO SCH (08:47)
[2018-10-03] MEDS: ARIPIPRAZOLE 5 MG TAB PO SCH (08:48)
[2018-10-03] MEDS: ASPIRIN (EC) 81 MG TAB PO SCH (08:48)
[2018-10-03] MEDS: LABETALOL 100 MG TAB PO SCH (08:49)
[2018-10-03] MEDS: HEPARIN 5,000 UNIT/1 ML VIAL SC SCH ×2 (08:53→20:33)
[2018-10-03] MEDS ORDERED: CHLORTHALIDONE 25 MG TAB PO SCH (09:00)
[2018-10-03] MEDS ORDERED: BENAZEPRIL 40 MG TAB PO SCH (09:00)
[2018-10-03] MEDS ORDERED: HYDROCHLOROTHIAZIDE 12.5 MG CAP PO SCH (09:00)
[2018-10-03] MEDS: VANCOMYCIN HCL 1.25 GM in SOD CHLORIDE 0.9% 250 ML IVPB SCH (12:07)
--- NOTE | 2018-10-03 12:22 | CONS ---
DATE OF ADMISSION: 10/02/2018 DATE OF CONSULTATION: 10/02/2018 TYPE OF CONSULTATION: Infectious Disease. REASON FOR CONSULTATION: Antibiotic management. HISTORY OF PRESENT ILLNESS: Jose Wright is a 63-year-old male who was admitted with wea kness, vomiting and recent diagnosis of diabetes mellitus. Acutely, the patient presented to the emergency room with generalized malaise, shortness of breath, a bdominal distention, nausea and vomiting. He describes less than 24 hours of symptoms after eating s ome food. He had 4 episodes of emesis. He did not have diarrhea, has mid abdominal cramping without radiation to the back. His past problems include: 1. Dementia. 2. Hypertension. 3. Schizophrenia. 4. Diabetes mellitus. On admission, his white count was 22.4, H and H of 18.2 and 53.7, platelet count 294,000. BUN and cr eatinine 20/1.18. Blood cultures drawn on the were negative. His white count persistently is el evated today. It is up to 25.8 with 77 polys and 16 bands. His BUN and creatinine are 27/1.03. Uri ne is negative for nitrite and leukocyte esterase. He has 9 white cells per high powered field. His chest x-ray shows normal chest. CT scan of the abdomen and pelvis shows stranding peripancreatic fa t with small volume ascites, rule out pancreatitis, multiple small pockets of extraluminal gas along the head and tail of the pancreas, rule out superimposed infection with gas-forming organisms. No di screte abscess identified. PAST MEDICAL HISTORY: As outlined. FAMILY HISTORY: Noncontributory. SOCIAL HISTORY: Does not smoke, drink or abuse drugs. ALLERGIES: NONE TO PENICILLIN, SULFA OR FOODS. MEDICATIONS: Per chart. REVIEW OF SYSTEMS: As per HPI. PHYSICAL EXAMINATION: GENERAL: The patient is a well-developed, well-nourished male, awake, responsive, in no acute distre ss. VITAL SIGNS: Stable. He is afebrile. SKIN: Without generalized rash. HEENT: Within normal limits. NECK: Supple. LYMPH NODES: None palpable. CHEST: Decreased breath sounds at the bases bilaterally. HEART: Tachycardic without murmur or gallop. ABDOMEN: Protuberant, slightly firm. No peritonitis, no focal tenderness. EXTREMITIES: Without cyanosis, clubbing, or edema. RECTAL AND GENITAL: Deferred. NEUROLOGIC: No focal neurological abnormality. DIAGNOSTIC DATA: Chest x-ray was normal. CT scan of the abdomen and pelvis is as outlined. The patient has a protuberant and slightly firm abdomen. It seems that he presents with gallstone pa ncreatitis with CT scan showing multiple small pockets of extraluminal gas as previously outlined. Kianna Connell was asked to consult on this patient as well. The patient was seen by Dr. Panda who r ecommended transfer to higher level of care. He is currently on Zosyn and vancomycin. I concur with this method of therapy at this point. The patient had an episode of acute respiratory distress seco ndary to volume overload from aggressive IV fluid therapy. He was given Lasix. He also was given al bumin. We will continue him on current therapy. Dictated By: GÓMEZ RAZA MD, JD/NTS Conf#: [id number] DID#: [id number] CC: STEPHENIE CONNELL MD; ANIBAL CARBALLO MD;*[facility]*
--- NOTE | 2018-10-03 13:02 | PN ---
Date/Time of Note Date/Time of Note DATE: 10/03/18 TIME: 12:53 Assessment/Plan Lines/Catheters IV Catheter Type (from [facility]): Saline Lock Assessment/Plan Chief Complaint/Hosp Course 1. Acute pancreatitis possibly secondary to gallstones versus other etiologies. Gas bubbles with suggestions of infection with gas-forming bacteria. As we are not a hepatobiliary service, patient needs hepatobiliary surgeon to be involved in case he develops pancreatic necrosis, infection, abscess, with need for debridement; Hepatobiliary has agreed to see patient in house -IV antibiotics -N.p.o. -Judicious IV fluid resuscitation -Bull to monitor urine output for resuscitation -Pain control -Monitored setting specially for pulmonary status -Eventual nasojejunal feeding tube to start tube feeds -Hepatobiliary surgical evaluation 2. Tiny gallstones -As above 3. BMI 39 with morbid obesity -Highly encourage eventual nutritional optimization -Highly encouraged eventual exercise 4. Hypertension -Diet and medication optimization -Highly encouraged weight loss 5. Prediabetes -Nutrition optimization -Highly encouraged weight loss 6. Schizophrenia, mild per family -Psychiatric optimization 7. Dementia -Medical management 8. Leukocytosis: uptrending -as above 8. Respiratory distress: currently on high flow o2: cxr: Patchy left lower lobe infiltrate/atelectasis -supportive -judicious fluids -as above Thank you. Patient seen and examined in collaboration with Dr. Jason Panda. Subjective 24 Hr Interval Summary Episode of respiratory distress yesterday. Currently on highflow O2. Improved after diuresis. WBC improved. Abdominal pain improved. No fevers, chills, sob, congested cough, cp, palpitations, mitchell, dizziness, n/v/d/dysuria. Exam/Review of Systems Vital Signs Vitals Vital Signs Date Temp Pulse Resp B/P (MAP) Pulse Ox O2 O2 Flow FiO2 Time Delivery Rate 10/03/18 83 12:24 10/03/18 98.3 19 138/91 96 12:07 (107) 10/03/18 40 09:05 10/03/18 High Flow 00:44 10/02/18 3.0 23:32 Intake and Output 10/02/18 10/02/18 10/03/18 1515:00 23:00 07:00 IntakeIntake Total 470 ml OutputOutput Total 800 ml BalanceBalance -330 ml Exam Free Text/Dictation Constitutional: alert, oriented, distress (Mild), obese Psych: anxiety; No confusion Head: normocephalic, atraumatic Eyes: nl conjunctiva, EOMI, PERRL; No icteric ENMT: nl external ears & nose, nl lips & teeth Neck: supple, non-tender; No jvd Respiratory: normal air movement, labored breathing (Minimal-improved); high flow o2 No congested cough, No wheezing Cardiovascular: No regular rate and rhythm (Tachycardic), No edema Gastrointestinal: soft, distended, nontender, other (Ventral umbilical hernia); No rebound or guarding Genitourinary - Male: nl scrotum Musculoskeletal: nl extremities to inspection; No joint tenderness Extremities: normal pulses; No calf tenderness, No cyanosis Neurological: nl mental status, nl speech, nl strength Skin: nl turgor; No rash or lesions, No diaphoresis Lymph: nl lymph nodes Results Result Diagram: 10/03/18 0540 10/03/18 0541 LESLYE ROJAS NP Oct 03, 2018 13:02
--- NOTE | 2018-10-03 14:06 | PN ---
Date/Time of Note Date/Time of Note DATE: 10/03/18 TIME: 14:04 Assessment/Plan VTE Prophylaxis Risk score (from Nsg)>0 risk: 4 SCD applied (from Nsg): Yes Pharmacological prophylaxis: heparin Lines/Catheters IV Catheter Type (from Nrs): Saline Lock Assessment/Plan Hospital Course 63 yo male with ho of DMII, obesity, hypertension obesity who presents wtih gall stone pancreatitis with CT showing multiple small pockets of extraluminal gas visualized posterior and superior to the distal tail of the pancreas and posterior and superior to the head of the pancreas. Findings likely represent evidence of superimposed infection with gas-forming organism. - Will hold on IV fluids today given hypoxic respiratory distress episode - Dr Christine has agreed to consult on this patient, await his opinion - Will continue IV abx given concern for infection DMII; - Basal/bolus insulin Hold anithypertensives Try to transfer to tertiary center if possible Result Diagram: 10/03/18 0540 10/03/18 0541 Results 24hrs Laboratory Tests Test 10/02/18 23:40 10/03/18 05:40 10/03/18 05:41 Blood Gas Specimen Source Blood arterial Arterial Blood Date Drawn 10/02/2018 11:40:26 PM Arterial Blood pH 7.395 (Temp corrected) Arterial Blood pCO2 46.5 H (Temp correct) Arterial Blood pO2 79.0 L (Temp corrected) Arterial Blood HCO3 27.8 H Arterial Blood Base Excess 2.2 Arterial Blood 96.2 Oxygen Saturation Marco Test ACCEPTAB Arterial Blood Gas Right Radial Puncture Site Arterial 0.9 Blood Carboxyhemoglobin Arterial Blood 0.2 Methemoglobin Blood Gas A-a O2 80.3 H Differential Oxyhemoglobin Percent 95.1 Blood Gas Temperature 37.0 Blood Gas Modality NASAL CANNULA FiO2 30.0 Blood Gas Notified Whom MA Blood Gas Notified Time 10/02/2018 11:58:57 PM White Blood Count 25.8 H Red Blood Count 5.46 Hemoglobin 15.9 Hematocrit 47.4 Mean Corpuscular Volume 86.8 Mean Corpuscular Hemoglobin 29.1 Mean Corpuscular 33.5 Hemoglobin Concent Red Cell Distribution Width 13.2 Platelet Count 184 # Mean Platelet Volume 10.6 H Immature Granulocytes % 1.100 H Neutrophils % Segmented Neutrophils 77 % (Manual) Band Neutrophils % (Manual) 16 H Lymphocytes % Lymphocytes % (Manual) 4 L Reactive Lymphocytes 1 H % (Manual) Monocytes % Monocytes % (Manual) 2 Eosinophils % Basophils % Nucleated Red Blood Cells % 0.0 Immature Granulocytes # 0.280 H Neutrophils # Neutrophils # (Manual) 20.9 H Band Neutrophils # 4.1 H Lymphocytes (Manual) 1.0 Lymphocytes # Reactive Lymphocytes # 0.2 H Monocytes # Monocytes # (Manual) 0.5 Eosinophils # Basophils # Nucleated Red Blood Cells # Platelet Estimate NORMAL Poikilocytosis 2+ Hemoglobin A1c 5.9 Sodium Level 146 H Potassium Level 4.1 Chloride Level 104 Carbon Dioxide Level 29 Anion Gap 13 Blood Urea Nitrogen 27 H Creatinine 1.03 Est Glomerular Filtrat > 60 Rate mL/min Glucose Level 140 Calcium Level 9.0 Total Bilirubin 0.5 Direct Bilirubin 0.00 Indirect Bilirubin 0.5 Aspartate Amino 30 Transf (AST/SGOT) Alanine 26 Aminotransferase (ALT/SGPT) Alkaline Phosphatase 55 Total Protein 7.0 Albumin 3.8 Globulin 3.20 Albumin/Globulin Ratio 1.18 Subjective 24 Hr Interval Summary Free Text/Dictation Epsiode of respiratory distress yesterday 2/2 volume overload. Resolved. Now breathing comfortably No abdominal apin VSS Exam/Review of Systems Vital Signs Vitals Vital Signs Date Temp Pulse Resp B/P (MAP) Pulse Ox O2 O2 Flow FiO2 Time Delivery Rate 10/03/18 97 40 13:05 10/03/18 83 12:24 10/03/18 98.3 19 138/91 12:07 (107) 10/03/18 High Flow 00:44 10/02/18 3.0 23:32 Intake and Output 10/02/18 10/02/18 10/03/18 1515:00 23:00 07:00 IntakeIntake Total 470 ml OutputOutput Total 800 ml BalanceBalance -330 ml Exam Comfortable appearing Morbidly obese RRR Clear lungs Abdomen obese, firm not rigid, no rebound or guarding Medications Medications Current Medications Vancomycin HCl (Vanco Iv Per Pharmacy) 1 ea PER PROTOCOL XX ; Start 10/02/18 at 10:00 Vancomycin HCl 1.25 gm/Sodium Chloride 250 ml @ 83.333 mls/ hr Q12H IVPB Last administered on 10/03/18at 12:07; Admin Dose 83.333 MLS/HR; Start 10/02/18 at 23:00 IV Flush (NS 3 ml) 3 ml PER PROTOCOL IV ; Start 10/02/18 at 19:30 Hydromorphone HCl (Dilaudid) 0.5 mg Q4H PRN IV SEVERE PAIN LEVEL 7-10; Start 10/02/18 at 19:30 Heparin Sodium (Porcine) (Heparin (5000 Units/1ml)) 5,000 unit Q12 SC Last administered on 10/03/18at 08:53; Admin Dose 5,000 UNIT; Start 10/02/18 at 21:00 Levalbuterol (Xopenex Neb) 1.25 mg Q4H RESP THERAPY PRN HHN wheezing Last administered on 10/02/18at 23:29; Admin Dose 1.25 MG; Start 10/02/18 at 23:30 Ipratropium [place] (Atrovent 0.02% (Neb)) 0.5 mg Q4H RESP THERAPY PRN HHN SHORTNESS OF BREATH; Start 10/02/18 at 23:30 Albumin Human 100 ml @ 100 mls/hr Q1H IV ; Start 10/04/18 at 01:00; Stop 10/04/18 at 02:59 Aripiprazole (Abilify) 5 mg DAILY PO Last administered on 10/03/18at 08:48; Admin Dose 5 MG; Start 10/03/18 at 09:00 Aspirin (Halfprin) 81 mg DAILY PO Last administered on 10/03/18at 08:48; Admin Dose 81 MG; Start 10/03/18 at 09:00 Diphenhydramine HCl (Benadryl) 50 mg QHS PRN PO ITCHING; Start 10/03/18 at 00:30 Fluoxetine HCl (Prozac) 40 mg DAILY PO Last administered on 10/03/18at 08:47; Admin Dose 40 MG; Start 10/03/18 at 09:00 Labetalol HCl (Normodyne) 300 mg DAILY PO Last administered on 10/03/18at 08:49; Admin Dose 300 MG; Start 10/03/18 at 09:00 Nifedipine (Procardia Xl) 30 mg DAILY PO Last administered on 10/03/18at 08:46; Admin Dose 30 MG; Start 10/03/18 at 09:00 Tamsulosin HCl (Flomax) 0.4 mg HS PO ; Start 10/03/18 at 21:00 Piperacillin Sod/ Tazobactam Sod 100 ml @ 200 mls/hr Q6 IVPB Last administered on 10/03/18at 11:11; Admin Dose 200 MLS/HR; Start 10/03/18 at 02:01 Miscellaneous Information (*Rx Drug Level Order Reminder*) VANCOMYCIN TROUGH AT 2200 ONCE ONCE XX ; Start 10/03/18 at 22:00; Stop 10/03/18 at 22:01 ANIBAL CARBALLO MD Oct 03, 2018 14:06
--- NOTE | 2018-10-03 17:50 | RADRPT ---
Echocardiogram Report Patient Name: MITESH BROWN Gender: Male Date: 1955 Study Date: 03-Oct-2018 Machine Pie Maker: Basilia Yo STEFF Location: 627 Ref. Physician: ISABEL FERRERA Quality: Technically Difficult Study Procedures: Transthoracic echocardiogram with complete 2D, M-Mode, and doppler examination. Indications: pulm congestion. 2D/M Mode Doppler Measurement Value Normal Ranges Measurement Value Normal Ranges LVIDd 2D 3.5 3.5 - 5.6 cm AV Peak Samy 1.1 m/sec LVIDs 2D 2.3 2.1 - 4.1 cm AV Peak PG 5.0 mmHg FS 2D 32.4 % LVOT Peak Samy 0.9 m/sec LVPWd 2D 1.6 0.6 - 1.1 cm LVOT Peak PG 3.0 mmHg IVSd 2D 1.6 0.6 - 1.1 cm IVS/LVPW 2D 1.0 AoR Diam 2D 3.7 2.0 - 3.7 cm LA/Ao 2D 1 0 - 1 EDV 2D 41.4 cm3 ESV 2D 12.8 cm3 LA Dimen 2D 3.2 2.3 - 4.0 cm Findings Left Ventricle: Normal left ventricular systolic function. Normal left ventricular cavity size. Mild hypertrophy of the basal septum. Ejection fraction is visually estimated at 65 %. Right Ventricle: Normal right ventricular size. Normal right ventricular systolic function. Left Atrium: The left atrium is normal in size. Right Atrium: The right atrium is normal in size. Mitral Valve: Normal appearance and function of the mitral valve with trace physiologic regurgitation. Aortic Valve: Normal appearance of the aortic valve. No significant aortic stenosis or insufficiency. Tricuspid Valve: Normal appearance of the tricuspid valve. Unable to obtain RVSP due to minimal presence of tricuspid regurgitation. Pulmonic Valve: Normal pulmonic valve appearance. Pericardium: Normal pericardium with no significant pericardial effusion. Aorta: Normal aortic root. IVC: The IVC is not well visualized. Conclusions Technically difficult study. Normal left ventricular systolic function. Normal left ventricular cavity size. Mild hypertrophy of the basal septum. Ejection fraction is visually estimated at 65 %. No significant valvular stenosis or regurgitation seen. Unable to obtain RVSP due to minimal presence of tricuspid regurgitation. The IVC is not well visualized. Electronically Signed By: Ulises Acosta 03-Oct-2018 17:50:36 -0800 Patient Name: MITESH BROWN Study Date: 03-Oct-[id number]
[2018-10-03] MEDS: TAMSULOSIN (SR) 0.4 MG CAP PO SCH (20:28)
--- NOTE | 2018-10-03 20:31 | CONS ---
Date/Time of Note Date/Time of Note DATE: 10/03/18 TIME: 20:31 Assessment/Plan Assessment/Plan Assessment/Plan Mr. Wright is a pleasant 63 yo male with acute likely biliary pancreatitis, with underlying obesity with findings of acute pancreatitis on non-contrast CT scan with some air bubbles that were concerning for possible pancreatic necrosis. Recs: - Pt is under resuscitated and thus will need more IVF - No surgical intervention for his pancreatitis. Recommend changing antibiotics to Meropenem for better pancreatic penetration. - does have small gallstones, and thus biliary pancreatitis is in the differential and may need to have his gallbladder removed once more stabilized. However, I have ordered a lipid profile to evaluate his Triglycerides as well. - NO indication for surgical intervention at this time. He will need to managed with conservative management. - f/u US vs MRI/MRCP may delineate biliary dilatation vs sludge / stones in the CBD. Unlikely to be underlying malignancy such as ampullary mass causing pancreatic duct obstruction. But this can be seen on appropriate imaging. - I will follow pt during this hospitalization and intervene as needed. Thank you for allowing me to partake in the care of this wonderful patient. Total time spent with pt 50 min Total time spent none [id number] for review of chart, imaging as well as coordination of care was 45 min Result Diagram: 10/03/18 0540 10/03/18 0541 Results 24hrs Laboratory Tests Test 10/02/18 23:40 10/03/18 05:40 10/03/18 05:41 Blood Gas Specimen Source Blood arterial Arterial Blood Date Drawn 10/02/2018 11:40:26 PM Arterial Blood pH 7.395 (Temp corrected) Arterial Blood pCO2 46.5 H (Temp correct) Arterial Blood pO2 79.0 L (Temp corrected) Arterial Blood HCO3 27.8 H Arterial Blood Base Excess 2.2 Arterial Blood 96.2 Oxygen Saturation Marco Test ACCEPTAB Arterial Blood Gas Right Radial Puncture Site Arterial 0.9 Blood Carboxyhemoglobin Arterial Blood 0.2 Methemoglobin Blood Gas A-a O2 80.3 H Differential Oxyhemoglobin Percent 95.1 Blood Gas Temperature 37.0 Blood Gas Modality NASAL CANNULA FiO2 30.0 Blood Gas Notified Whom MA Blood Gas Notified Time 10/02/2018 11:58:57 PM White Blood Count 25.8 H Red Blood Count 5.46 Hemoglobin 15.9 Hematocrit 47.4 Mean Corpuscular Volume 86.8 Mean Corpuscular Hemoglobin 29.1 Mean Corpuscular 33.5 Hemoglobin Concent Red Cell Distribution Width 13.2 Platelet Count 184 # Mean Platelet Volume 10.6 H Immature Granulocytes % 1.100 H Neutrophils % Segmented Neutrophils 77 % (Manual) Band Neutrophils % (Manual) 16 H Lymphocytes % Lymphocytes % (Manual) 4 L Reactive Lymphocytes 1 H % (Manual) Monocytes % Monocytes % (Manual) 2 Eosinophils % Basophils % Nucleated Red Blood Cells % 0.0 Immature Granulocytes # 0.280 H Neutrophils # Neutrophils # (Manual) 20.9 H Band Neutrophils # 4.1 H Lymphocytes (Manual) 1.0 Lymphocytes # Reactive Lymphocytes # 0.2 H Monocytes # Monocytes # (Manual) 0.5 Eosinophils # Basophils # Nucleated Red Blood Cells # Platelet Estimate NORMAL Poikilocytosis 2+ Hemoglobin A1c 5.9 Sodium Level 146 H Potassium Level 4.1 Chloride Level 104 Carbon Dioxide Level 29 Anion Gap 13 Blood Urea Nitrogen 27 H Creatinine 1.03 Est Glomerular Filtrat > 60 Rate mL/min Glucose Level 140 Calcium Level 9.0 Total Bilirubin 0.5 Direct Bilirubin 0.00 Indirect Bilirubin 0.5 Aspartate Amino 30 Transf (AST/SGOT) Alanine 26 Aminotransferase (ALT/SGPT) Alkaline Phosphatase 55 Total Protein 7.0 Albumin 3.8 Globulin 3.20 Albumin/Globulin Ratio 1.18 Consultation Date/Type/Reason Admit Date/Time Date of Consultation: Oct 03, 2018 Hx of Present Illness I was asked to see Mr. Wright in consultation for underlying pancreatitis. Briefly, pt is a 63yo male with multiple medical comorbidities including HTN, Schizophrenia, borderline diabetes. He came to [facility] ER with generalized malaise, Abdominal pain with SOB, some abdominal distention. His abdominal pain was associated with nausea and vomiting. Last meal was the day prior (was eating cookies). Per report, he had 4 x nonbloody nonbilious emesis. His pain is/was located in the epigastric and left upper quadrant without radiation. Pain is crampy and sharp. He has had similar pain in the past. Otherwise, denies jaundice, diarrhea or BM changes. CP, trauma. He does note some diaphoresis. No trauma, recent travel, sick contacts, antibiotics. No cough, seizure, visual, neurologic changes. No dysuria. Recent bowel function was normal. Patient is accompanied by his and daughter. Admission labs revealed a WBC of 22.4, Hgb of 18, BUN/Pierogi Maker of 20/10/10, LFT's were normal except a Lipase of 4221. His workup in the emergency room identified tachycardia however normal blood pressure. He has pancreatitis and CT with gas bubbles around the pancreas. Surgical consult is obtained further evaluation and treatment. CT scan: The lung bases are clear of any infiltrate or nodule. No effusion is seen. Liver is enlarged measuring 23.4 cm in length. There is fatty infiltration. No mass or ductal dilatation is present. There are tiny stones in the dependent gallbladder. No splenic or adrenal abnormalities present. no pancreatic mass or ductal dilatation is present. There is stranding of the peripancreatic fat in the lesser sac. No discrete collection or extraluminal gas is seen. Findings are compatible with pancreatitis. There is small volume of fluid tracking along the right and left paracolic gutter with trace pelvic ascites. However, there are also multiple small pockets of extraluminal gas visualized posterior and superior to the distal tail of the pancreas and posterior and superior to the head of the pancreas. Findings likely represent evidence of superimposed infection with gas-forming organism. Kidneys are of normal size and contour. No hydronephrosis or masses seen. T here is a 4 mm nonobstructing stone in the mid to upper pole of the right kidney. Ureters are of normal course and caliber with no stone. No bladder mass or stone is present. Prostate and seminal vesicles are normal. There is no aneurysm. No adenopathy is present. No bowel mass or obstruction is present. The appendix is normal. No pneumoperitoneum is visualized. The osseous structures are intact. IMPRESSION: Stranding peripancreatic fat with small volume ascites - rule out pancreatitis. Multiple small pockets of extraluminal gas along the head and tail of pancreas as described. Rule out superimposed infection with gas-forming organism. No discrete abscess identified. 4 mm nonobstructing right renal calculus. Tiny gallstones. No choledocholithiasis seen. Constitutional: diaphoresis Eyes: no complaints Respiratory: no complaints Cardiovascular: no complaints Past Medical History Medical History: no pertinent history, diabetes, hypertension, pancreatitis, other (Morbid Obesity) Medications Current Medications Vancomycin HCl (Vanco Iv Per Pharmacy) 1 ea PER PROTOCOL XX ; Start 10/02/18 at 10:00 Vancomycin HCl 1.25 gm/Sodium Chloride 250 ml @ 83.333 mls/ hr Q12H IVPB Last administered on 10/03/18at 12:07; Admin Dose 83.333 MLS/HR; Start 10/02/18 at 23:00 IV Flush (NS 3 ml) 3 ml PER PROTOCOL IV ; Start 10/02/18 at 19:30 Hydromorphone HCl (Dilaudid) 0.5 mg Q4H PRN IV SEVERE PAIN LEVEL 7-10; Start 10/02/18 at 19:30 Heparin Sodium (Porcine) (Heparin (5000 Units/1ml)) 5,000 unit Q12 SC Last administered on 10/03/18at 08:53; Admin Dose 5,000 UNIT; Start 10/02/18 at 21:00 Levalbuterol (Xopenex Neb) 1.25 mg Q4H RESP THERAPY PRN HHN wheezing Last administered on 10/02/18at 23:29; Admin Dose 1.25 MG; Start 10/02/18 at 23:30 Ipratropium [place] (Atrovent 0.02% (Neb)) 0.5 mg Q4H RESP THERAPY PRN HHN SHORTNESS OF BREATH; Start 10/02/18 at 23:30 Albumin Human 100 ml @ 100 mls/hr Q1H IV ; Start 10/04/18 at 01:00; Stop 10/04/18 at 02:59 Aripiprazole (Abilify) 5 mg DAILY PO Last administered on 10/03/18at 08:48; Admin Dose 5 MG; Start 10/03/18 at 09:00 Aspirin (Halfprin) 81 mg DAILY PO Last administered on 10/03/18at 08:48; Admin Dose 81 MG; Start 10/03/18 at 09:00 Diphenhydramine HCl (Benadryl) 50 mg QHS PRN PO ITCHING; Start 10/03/18 at 00:30 Fluoxetine HCl (Prozac) 40 mg DAILY PO Last administered on 10/03/18at 08:47; Admin Dose 40 MG; Start 10/03/18 at 09:00 Labetalol HCl (Normodyne) 300 mg DAILY PO Last administered on 10/03/18at 08:49; Admin Dose 300 MG; Start 10/03/18 at 09:00 Nifedipine (Procardia Xl) 30 mg DAILY PO Last administered on 10/03/18at 08:46; Admin Dose 30 MG; Start 10/03/18 at 09:00 Tamsulosin HCl (Flomax) 0.4 mg HS PO ; Start 10/03/18 at 21:00 Piperacillin Sod/ Tazobactam Sod 100 ml @ 200 mls/hr Q6 IVPB Last administered on 10/03/18at 17:24; Admin Dose 200 MLS/HR; Start 10/03/18 at 02:01 Miscellaneous Information (*Rx Drug Level Order Reminder*) VANCOMYCIN TROUGH AT 2200 ONCE ONCE XX ; Start 10/03/18 at 22:00; Stop 10/03/18 at 22:01 Allergies: Coded Allergies: No Known Allergy (Unverified , 10/01/18) Past Surgical History Past Surgical Hx: no surgical history, other (Hemorroidectomy) Family History Significant Family History: no pertinent family hx Social History Alcohol Use: none Smoking Status: Never smoker Drug Use: none Exam/Review of Systems Vital Signs Vitals Vital Signs Date Temp Pulse Resp B/P (MAP) Pulse Ox O2 O2 Flow FiO2 Time Delivery Rate 10/03/18 99.8 105 20 128/85 95 High Flow 19:58 (99) 10/03/18 40 16:40 10/02/18 3.0 23:32 Intake and Output 10/02/18 10/02/18 10/03/18 1515:00 23:00 07:00 IntakeIntake Total 470 ml OutputOutput Total 800 ml BalanceBalance -330 ml Exam Constitutional: alert, oriented, well developed, obese Psych: no complaints Head: normocephalic Eyes: nl conjunctiva, EOMI Neck: supple, non-tender Respiratory: clear to auscultation, diminished breath sounds (decreased at bases) Cardiovascular: regular rate and rhythm, nl pulses Gastrointestinal: soft (obese, small umbililcal hernia that is reducible, Diastasis Recti, Minimal tenderness in the epigastric area, no RUQ OR LUQ tender ness, No rebound, Normal BS) Genitourinary - Male: nl penis, nl scrotum Musculoskeletal: nl extremities to inspection Extremities: normal pulses Neurological: TIME MOTION ANALYST II-XII intact, nl speech Skin: diaphoresis Medications Medications Current Medications Vancomycin HCl (Vanco Iv Per Pharmacy) 1 ea PER PROTOCOL XX ; Start 10/02/18 at 10:00 Vancomycin HCl 1.25 gm/Sodium Chloride 250 ml @ 83.333 mls/ hr Q12H IVPB Last administered on 10/03/18at 12:07; Admin Dose 83.333 MLS/HR; Start 10/02/18 at 23:00 IV Flush (NS 3 ml) 3 ml PER PROTOCOL IV ; Start 10/02/18 at 19:30 Hydromorphone HCl (Dilaudid) 0.5 mg Q4H PRN IV SEVERE PAIN LEVEL 7-10; Start 10/02/18 at 19:30 Heparin Sodium (Porcine) (Heparin (5000 Units/1ml)) 5,000 unit Q12 SC Last administered on 10/03/18at 08:53; Admin Dose 5,000 UNIT; Start 10/02/18 at 21:00 Levalbuterol (Xopenex Neb) 1.25 mg Q4H RESP THERAPY PRN HHN wheezing Last administered on 10/02/18at 23:29; Admin Dose 1.25 MG; Start 10/02/18 at 23:30 Ipratropium [place] (Atrovent 0.02% (Neb)) 0.5 mg Q4H RESP THERAPY PRN HHN SHORTNESS OF BREATH; Start 10/02/18 at 23:30 Albumin Human 100 ml @ 100 mls/hr Q1H IV ; Start 10/04/18 at 01:00; Stop 10/04/18 at 02:59 Aripiprazole (Abilify) 5 mg DAILY PO Last administered on 10/03/18at 08:48; Admin Dose 5 MG; Start 10/03/18 at 09:00 Aspirin (Halfprin) 81 mg DAILY PO Last administered on 10/03/18at 08:48; Admin Dose 81 MG; Start 10/03/18 at 09:00 Diphenhydramine HCl (Benadryl) 50 mg QHS PRN PO ITCHING; Start 10/03/18 at 00:30 Fluoxetine HCl (Prozac) 40 mg DAILY PO Last administered on 10/03/18at 08:47; Admin Dose 40 MG; Start 10/03/18 at 09:00 Labetalol HCl (Normodyne) 300 mg DAILY PO Last administered on 10/03/18at 08:49; Admin Dose 300 MG; Start 10/03/18 at 09:00 Nifedipine (Procardia Xl) 30 mg DAILY PO Last administered on 10/03/18at 08:46; Admin Dose 30 MG; Start 10/03/18 at 09:00 Tamsulosin HCl (Flomax) 0.4 mg HS PO ; Start 10/03/18 at 21:00 Piperacillin Sod/ Tazobactam Sod 100 ml @ 200 mls/hr Q6 IVPB Last administered on 10/03/18at 17:24; Admin Dose 200 MLS/HR; Start 10/03/18 at 02:01 Miscellaneous Information (*Rx Drug Level Order Reminder*) VANCOMYCIN TROUGH AT 2200 ONCE ONCE XX ; Start 10/03/18 at 22:00; Stop 10/03/18 at 22:01 STEPHENIE CONNELL Oct 03, 2018 20:31
[2018-10-03] MEDS: VANCOMYCIN 1 GM 250 ML IVPB SCH (23:40)
[2018-10-04] VITALS (10 sets, daily range): BP systolic 123–155; BP diastolic 32–97; PULSE 80–107; RESP 19–20
[2018-10-04] MEDS: ALBUMIN HUMAN 25% 100 ML IV SCH ×2 (00:22→02:07)
[2018-10-04] MEDS: MEROPENEM 1 GM/50ML(PMX) 50 ML IVPB SCH ×3 (01:21→18:00)
[2018-10-04] MEDS: SOD CHLORIDE 0.9% 1,000 ML IV SCH ×4 (01:21→23:45)
[2018-10-04] MEDS: DOCUSATE SODIUM 100 MG CAP PO SCH ×3 (01:21→21:09)
[2018-10-04] MEDS: POLYETHYLENE GLYCOL 17 GM PACKET PO SCH ×2 (01:21→09:48)
[2018-10-04] MEDS: VANCOMYCIN 1 GM 250 ML IVPB SCH (06:58)
[2018-10-04] MEDS: ARIPIPRAZOLE 5 MG TAB PO SCH (09:48)
[2018-10-04] MEDS: ASPIRIN (EC) 81 MG TAB PO SCH (09:48)
[2018-10-04] MEDS: FLUOXETINE 20 MG CAP PO SCH (09:48)
[2018-10-04] MEDS: NIFEdipine (XL) 30 MG TAB PO SCH (09:49)
[2018-10-04] MEDS: LABETALOL 100 MG TAB PO SCH (09:49)
[2018-10-04] MEDS: HEPARIN 5,000 UNIT/1 ML VIAL SC SCH ×2 (09:58→21:18)
--- NOTE | 2018-10-04 14:21 | CONS ---
Date/Time of Note Date/Time of Note DATE: 10/04/18 TIME: 14:20 Assessment/Plan Assessment/Plan Hospital Course No acute changes overnight. Patient is awake comfortable on high flow oxygen states that he feels better, he is afebrile with a T-max yesterday 99.8. WBC today 10.3 platelets 260 neutrophils 86.1 BUN 28 creatinine 0.93 Microbiology: Blood cultures remain negative Antimicrobials: Patient is on meropenem and vancomycin Physical examination: Morbidly obese well-developed elderly man who is alert in no distress. Head atraumatic normocephalic sclera nonicteric vehicle mucosa dry neck is obese chest rise symmetrical breath sounds diminished bases. Heart: S1-S2. Abdomen obese distended bowel sounds hypoactive patient has mild tenderness on palpation. Extremities with bilateral lower extremities edema Assessment: 1. Severe sepsis 2. Acute pancreatitis 3. Acute respiratory failure 4. Left lower lobe pneumonia 5. Gallstones 6. Morbid obesity Plan: Patient is clinically stable slowly improving he is being seen by surgery and hepatobiliary surgery. No planned surgical intervention, continue treatment with antibiotics. Follow repeat chest x-ray Result Diagram: 10/04/18 0536 10/04/18 0536 Results 24hrs Laboratory Tests Test 10/03/18 21:34 10/04/18 05:36 Triglycerides Level 196 H Cholesterol Level 182 LDL Cholesterol, Calculated 124 HDL Cholesterol 19 L Cholesterol/HDL Ratio 9.5 Vancomycin Level Trough 8.3 L White Blood Count 18.3 #H Red Blood Count 4.83 Hemoglobin 13.9 L Hematocrit 42.5 Mean Corpuscular Volume 88.0 Mean Corpuscular Hemoglobin 28.8 L Mean Corpuscular Hemoglobin Concent 32.7 Red Cell Distribution Width 13.1 Platelet Count 216 Mean Platelet Volume 11.0 H Immature Granulocytes % 0.900 H Neutrophils % 86.1 H Lymphocytes % 7.3 L Monocytes % 5.3 Eosinophils % 0.1 Basophils % 0.3 Nucleated Red Blood Cells % 0.0 Immature Granulocytes # 0.160 H Neutrophils # 15.8 H Lymphocytes # 1.3 Monocytes # 1.0 H Eosinophils # 0.0 Basophils # 0.1 Nucleated Red Blood Cells # 0.0 Sodium Level 149 H Potassium Level 3.4 L Chloride Level 104 Carbon Dioxide Level 32 H Anion Gap 13 Blood Urea Nitrogen 28 H Creatinine 0.93 Est Glomerular Filtrat Rate mL/min > 60 Glucose Level 127 Calcium Level 9.1 Total Bilirubin 0.6 Direct Bilirubin 0.00 Indirect Bilirubin 0.6 Aspartate Amino Transf (AST/SGOT) 33 Alanine Aminotransferase (ALT/SGPT) 27 Alkaline Phosphatase 57 Total Protein 7.2 Albumin 4.0 Globulin 3.20 Albumin/Globulin Ratio 1.25 Lipase 393 H Consultation Date/Type/Reason Admit Date/Time Oct 02, 2018 at 19:02 Initial Consult Date 10/03/18 Type of Consult id Requesting Provider: ASHLEY NICOLE MD Exam/Review of Systems Vital Signs Vitals Vital Signs Date Temp Pulse Resp B/P (MAP) Pulse Ox O2 O2 Flow FiO2 Time Delivery Rate 10/04/18 93 40 14:19 10/04/18 80 12:57 10/04/18 High Flow 12:04 10/04/18 98.9 20 136/90 11:21 (105) 10/02/18 3.0 23:32 Intake and Output 10/03/18 10/03/18 10/04/18 1515:00 23:00 07:00 IntakeIntake Total 100 ml 350 ml 1300 ml OutputOutput Total 100 ml 600 ml 900 ml BalanceBalance 0 ml -250 ml 400 ml Medications Medications Current Medications IV Flush (NS 3 ml) 3 ml PER PROTOCOL IV ; Start 10/02/18 at 19:30 Hydromorphone HCl (Dilaudid) 0.5 mg Q4H PRN IV SEVERE PAIN LEVEL 7-10; Start 10/02/18 at 19:30 Heparin Sodium (Porcine) (Heparin (5000 Units/1ml)) 5,000 unit Q12 SC Last administered on 10/04/18at 09:58; Admin Dose 5,000 UNIT; Start 10/02/18 at 21:00 Levalbuterol (Xopenex Neb) 1.25 mg Q4H RESP THERAPY PRN HHN wheezing Last administered on 10/02/18at 23:29; Admin Dose 1.25 MG; Start 10/02/18 at 23:30 Ipratropium [place] (Atrovent 0.02% (Neb)) 0.5 mg Q4H RESP THERAPY PRN HHN SHORTNESS OF BREATH; Start 10/02/18 at 23:30 Aripiprazole (Abilify) 5 mg DAILY PO Last administered on 10/04/18at 09:48; Admin Dose 5 MG; Start 10/03/18 at 09:00 Aspirin (Halfprin) 81 mg DAILY PO Last administered on 10/04/18 09:48; Admin Dose 81 MG; Start 10/03/18 at 09:00 Diphenhydramine HCl (Benadryl) 50 mg QHS PRN PO ITCHING; Start 10/03/18 at 00:30 Fluoxetine HCl (Prozac) 40 mg DAILY PO Last administered on 10/04/18 09:48; Admin Dose 40 MG; Start 10/03/18 at 09:00 Labetalol HCl (Normodyne) 300 mg DAILY PO Last administered on 10/04/18 09:49; Admin Dose 300 MG; Start 10/03/18 at 09:00 Nifedipine (Procardia Xl) 30 mg DAILY PO Last administered on 10/04/18 09:49; Admin Dose 30 MG; Start 10/03/18 at 09:00 Tamsulosin HCl (Flomax) 0.4 mg HS PO Last administered on 10/03/18 20:28; Admin Dose 0.4 MG; Start 10/03/18 at 21:00 Docusate Sodium (Colace) 200 mg BID PO Last administered on 10/04/18 09:48; Admin Dose 200 MG; Start 10/04/18 at 01:00 Polyethylene Glycol (Miralax) 17 gm DAILY PO Last administered on 10/04/18 09:48; Admin Dose 17 GM; Start 10/04/18 at 01:00 Sodium Chloride 1,000 ml @ 125 mls/hr Q8H IV Last administered on 10/04/18 09:48; Admin Dose 125 MLS/HR; Start 10/04/18 at 01:00 Meropenem/Sodium Chloride 50 ml @ 100 mls/hr Q8H IVPB Last administered on 10/04/18 09:47; Admin Dose 100 MLS/HR; Start 10/04/18 at 01:00 LOPEZ SALAS NP Oct 04, 2018 14:21
--- NOTE | 2018-10-04 15:32 | PN ---
Date/Time of Note Date/Time of Note DATE: 10/04/18 TIME: 15:27 Assessment/Plan Lines/Catheters IV Catheter Type (from Nrs): Peripheral IV Assessment/Plan Chief Complaint/Hosp Course 1. Acute pancreatitis possibly secondary to gallstones versus other etiologies. Gas bubbles with suggestions of infection with gas-forming bacteria. As we are not a hepatobiliary service, patient needs hepatobiliary surgeon to be involved in case he develops pancreatic necrosis, infection, abscess, with need for debridement; Hepatobiliary on the case -IV antibiotics> per ID/HBS -N.p.o. -Judicious IV fluid resuscitation -Bull to monitor urine output for resuscitation -Pain control -Further imaging/eventual nasojejunal feeding tube to start tube feeds> per HPS 2. Tiny gallstones -As above -We will likely benefit from eventual cholecystectomy 3. BMI 39 with morbid obesity -Highly encourage eventual nutritional optimization -Highly encouraged eventual exercise 4. Hypertension -Diet and medication optimization -Highly encouraged weight loss 5. Prediabetes -Nutrition optimization -Highly encouraged weight loss 6. Schizophrenia, mild per family -Psychiatric optimization 7. Dementia -Medical management 8. Leukocytosis: improving -as above 8. Respiratory distress: currently on high flow o2: cxr: Patchy left lower lobe infiltrate/atelectasis -supportive -judicious fluids -as above Thank you. Patient seen and examined in collaboration with Dr. Jason Panda. Subjective 24 Hr Interval Summary Abdominal pain much improved. Min temp. No chills, sob, congested cough, cp, palpitations, mitchell, dizziness, nausea, vomiting, diarrhea, dysuria. Continues on high flow oxygen. + Flatus Exam/Review of Systems Vital Signs Vitals Vital Signs Date Temp Pulse Resp B/P (MAP) Pulse Ox O2 O2 Flow FiO2 Time Delivery Rate 10/04/18 99.7 87 19 123/88 95 15:11 (100) 10/04/18 40 14:19 10/04/18 High Flow 12:04 10/02/18 3.0 23:32 Intake and Output 10/03/18 10/03/18 10/04/18 1515:00 23:00 07:00 IntakeIntake Total 100 ml 350 ml 1300 ml OutputOutput Total 100 ml 600 ml 900 ml BalanceBalance 0 ml -250 ml 400 ml Exam Free Text/Dictation Constitutional: alert, oriented, NAD, obese Psych: anxiety; No confusion Head: normocephalic, atraumatic Eyes: nl conjunctiva, EOMI, PERRL; No icteric ENMT: nl external ears & nose, nl lips & teeth Neck: supple, non-tender; No jvd Respiratory: normal air movement, labored breathing (Minimal-improved); high flow o2 No congested cough, No wheezing Cardiovascular: regular rate and rhythm No edema Gastrointestinal: soft, distended, nontender, other (Ventral umbilical hernia); No rebound or guarding Genitourinary - Male: nl scrotum Musculoskeletal: nl extremities to inspection; No joint tenderness Extremities: normal pulses; No calf tenderness, No cyanosis Neurological: nl mental status, nl speech, nl strength Skin: nl turgor; No rash or lesions, No diaphoresis Lymph: nl lymph nodes Results Result Diagram: 10/04/18 0536 10/04/18 0536 LESLYE ROJAS NP Oct 04, 2018 15:32
--- NOTE | 2018-10-04 16:10 | PN ---
Date/Time of Note Date/Time of Note DATE: 10/04/18 TIME: 16:09 Assessment/Plan VTE Prophylaxis Risk score (from Ns)>0 risk: 8 SCD applied (from [facility] [place] Yes Pharmacological prophylaxis: heparin Pharm contraindication: patient refusal Lines/Catheters IV [facility]ter Type (from [facility]): Peripheral IV Assessment/Plan Hospital Course 63 yo male with ho of DMII, obesity, hypertension obesity who presents wtih gall stone pancreatitis with CT showing multiple small pockets of extraluminal gas visualized posterior and superior to the distal tail of the pancreas and posterior and superior to the head of the pancreas. Findings likely represent evidence of superimposed infection with gas-forming organism. - Continue IV fluids - Dr Christine following from hepatobiliary surgery - Will continue IV abx given concern for infection DMII; - Basal/bolus insulin Hold anithypertensives Try to transfer to tertiary center if possible Result Diagram: 10/04/18 0536 10/04/18 0536 Results 24hrs Laboratory Tests Test 10/03/18 21:34 10/04/18 05:36 Triglycerides Level 196 H Cholesterol Level 182 LDL Cholesterol, Calculated 124 HDL Cholesterol 19 L Cholesterol/HDL Ratio 9.5 Vancomycin Level Trough 8.3 L White Blood Count 18.3 #H Red Blood Count 4.83 Hemoglobin 13.9 L Hematocrit 42.5 Mean Corpuscular Volume 88.0 Mean Corpuscular Hemoglobin 28.8 L Mean Corpuscular Hemoglobin Concent 32.7 Red Cell Distribution Width 13.1 Platelet Count 216 Mean Platelet Volume 11.0 H Immature Granulocytes % 0.900 H Neutrophils % 86.1 H Lymphocytes % 7.3 L Monocytes % 5.3 Eosinophils % 0.1 Basophils % 0.3 Nucleated Red Blood Cells % 0.0 Immature Granulocytes # 0.160 H Neutrophils # 15.8 H Lymphocytes # 1.3 Monocytes # 1.0 H Eosinophils # 0.0 Basophils # 0.1 Nucleated Red Blood Cells # 0.0 Sodium Level 149 H Potassium Level 3.4 L Chloride Level 104 Carbon Dioxide Level 32 H Anion Gap 13 Blood Urea Nitrogen 28 H Creatinine 0.93 Est Glomerular Filtrat Rate mL/min > 60 Glucose Level 127 Calcium Level 9.1 Total Bilirubin 0.6 Direct Bilirubin 0.00 Indirect Bilirubin 0.6 Aspartate Amino Transf (AST/SGOT) 33 Alanine Aminotransferase (ALT/SGPT) 27 Alkaline Phosphatase 57 Total Protein 7.2 Albumin 4.0 Globulin 3.20 Albumin/Globulin Ratio 1.25 Lipase 393 H Subjective 24 Hr Interval Summary Free Text/Dictation Stable, no abdominal pain Started back on fluids Exam/Review of Systems Vital Signs Vitals Vital Signs Date Temp Pulse Resp B/P (MAP) Pulse Ox O2 O2 Flow FiO2 Time Delivery Rate 10/04/18 99.7 87 19 123/88 95 15:11 (100) 10/04/18 40 14:19 10/04/18 High Flow 12:04 10/02/18 3.0 23:32 Intake and Output 10/03/18 10/03/18 10/04/18 1515:00 23:00 07:00 IntakeIntake Total 100 ml 350 ml 1300 ml OutputOutput Total 100 ml 600 ml 900 ml BalanceBalance 0 ml -250 ml 400 ml Medications Medications Current Medications IV Flush (NS 3 ml) 3 ml PER PROTOCOL IV ; Start 10/02/18 at 19:30 Hydromorphone HCl (Dilaudid) 0.5 mg Q4H PRN IV SEVERE PAIN LEVEL 7-10; Start 10/02/18 at 19:30 Heparin Sodium (Porcine) (Heparin (5000 Units/1ml)) 5,000 unit Q12 SC Last administered on 10/04/18at 09:58; Admin Dose 5,000 UNIT; Start 10/02/18 at 21:00 Levalbuterol (Xopenex Neb) 1.25 mg Q4H RESP THERAPY PRN HHN wheezing Last administered on 10/02/18at 23:29; Admin Dose 1.25 MG; Start 10/02/18 at 23:30 Ipratropium [place] (Atrovent 0.02% (Neb)) 0.5 mg Q4H RESP THERAPY PRN HHN SHORTNESS OF BREATH; Start 10/02/18 at 23:30 Aripiprazole (Abilify) 5 mg DAILY PO Last administered on 10/04/18at 09:48; Admin Dose 5 MG; Start 10/03/18 at 09:00 Aspirin (Halfprin) 81 mg DAILY PO Last administered on 10/04/18at 09:48; Admin Dose 81 MG; Start 10/03/18 at 09:00 Diphenhydramine HCl (Benadryl) 50 mg QHS PRN PO ITCHING; Start 10/03/18 at 00:30 Fluoxetine HCl (Prozac) 40 mg DAILY PO Last administered on 10/04/18 09:48; Admin Dose 40 MG; Start 10/03/18 at 09:00 Labetalol HCl (Normodyne) 300 mg DAILY PO Last administered on 10/04/18 09:49; Admin Dose 300 MG; Start 10/03/18 at 09:00 Nifedipine (Procardia Xl) 30 mg DAILY PO Last administered on 10/04/18 09:49; Admin Dose 30 MG; Start 10/03/18 at 09:00 Tamsulosin HCl (Flomax) 0.4 mg HS PO Last administered on 10/03/18 20:28; Admin Dose 0.4 MG; Start 10/03/18 at 21:00 Docusate Sodium (Colace) 200 mg BID PO Last administered on 10/04/18 09:48; Admin Dose 200 MG; Start 10/04/18 at 01:00 Polyethylene Glycol (Miralax) 17 gm DAILY PO Last administered on 10/04/18 09:48; Admin Dose 17 GM; Start 10/04/18 at 01:00 Sodium Chloride 1,000 ml @ 125 mls/hr Q8H IV Last administered on 10/04/18 09:48; Admin Dose 125 MLS/HR; Start 10/04/18 at 01:00 Meropenem/Sodium Chloride 50 ml @ 100 mls/hr Q8H IVPB Last administered on 10/04/18 09:47; Admin Dose 100 MLS/HR; Start 10/04/18 at 01:00 ANIBAL CARBALLO MD Oct 04, 2018 16:10
[2018-10-04] MEDS: TAMSULOSIN (SR) 0.4 MG CAP PO SCH (21:09)
[2018-10-05] VITALS (12 sets, daily range): BP systolic 139–171; BP diastolic 68–99; PULSE 53–102; RESP 19–22
[2018-10-05] MEDS: MEROPENEM 1 GM/50ML(PMX) 50 ML IVPB SCH ×3 (01:07→18:42)
[2018-10-05] MEDS: SOD CHLORIDE 0.9% 1,000 ML IV SCH ×2 (08:38→16:32)
[2018-10-05] MEDS: POLYETHYLENE GLYCOL 17 GM PACKET PO SCH (08:42)
[2018-10-05] MEDS: ASPIRIN (EC) 81 MG TAB PO SCH (08:42)
[2018-10-05] MEDS: FLUOXETINE 20 MG CAP PO SCH (08:42)
[2018-10-05] MEDS: ARIPIPRAZOLE 5 MG TAB PO SCH (08:42)
[2018-10-05] MEDS: NIFEdipine (XL) 30 MG TAB PO SCH (08:42)
[2018-10-05] MEDS: DOCUSATE SODIUM 100 MG CAP PO SCH ×2 (08:43→21:09)
[2018-10-05] MEDS: LABETALOL 100 MG TAB PO SCH (08:43)
[2018-10-05] MEDS: HEPARIN 5,000 UNIT/1 ML VIAL SC SCH ×2 (09:33→21:12)
--- NOTE | 2018-10-05 11:24 | PN ---
Date/Time of Note Date/Time of Note DATE: 10/05/18 TIME: 11:18 Assessment/Plan VTE Prophylaxis Risk score (from Nsg)>0 risk: 7 SCD applied (from Nsg): Yes Pharmacological prophylaxis: heparin Lines/Catheters IV Catheter Type (from Nrsg): Saline Lock Assessment/Plan Hospital Course 63 yo male with ho of DMII, obesity, hypertension obesity who presents wtih gall stone pancreatitis with CT showing multiple small pockets of extraluminal gas visualized posterior and superior to the distal tail of the pancreas and posterior and superior to the head of the pancreas. Findings likely represent evidence of superimposed infection with gas-forming organism. - Continue IV fluids - Dr Christine following from hepatobiliary surgery - Will continue IV abx given concern for infection DMII; - Basal/bolus insulin Hypoxia: - 2/2 fluids. Continue O2 as tolerated. Respiratory status is stable. If decompensates hold fluids Hold anithypertensives Try to transfer to tertiary center if possible Result Diagram: 10/04/18 0536 10/05/18 0455 Results 24hrs Laboratory Tests Test 10/05/18 04:55 Sodium Level 145 H Potassium Level 3.2 L Chloride Level 107 Carbon Dioxide Level 31 Anion Gap 7 Blood Urea Nitrogen 23 H Creatinine 0.78 Est Glomerular Filtrat Rate mL/min > 60 Glucose Level 119 Calcium Level 8.8 Lipase 459 H Subjective 24 Hr Interval Summary Free Text/Dictation Stable No abdominal pain Remains hypoxic but stable on HFNC Exam/Review of Systems Vital Signs Vitals Vital Signs Date Temp Pulse Resp B/P (MAP) Pulse Ox O2 O2 Flow FiO2 Time Delivery Rate 10/05/18 97 30 10:13 10/05/18 88 139/77 09:59 (97) 10/05/18 99.0 22 High Flow 08:00 10/02/18 3.0 23:32 Intake and Output 10/04/18 10/04/18 10/05/18 1515:00 23:00 07:00 IntakeIntake Total 1495 ml 1240 ml 2125 ml OutputOutput Total 300 ml 600 ml 900 ml BalanceBalance 1195 ml 640 ml 1225 ml Medications Medications Current Medications IV Flush (NS 3 ml) 3 ml PER PROTOCOL IV ; Start 10/02/18 at 19:30 Hydromorphone HCl (Dilaudid) 0.5 mg Q4H PRN IV SEVERE PAIN LEVEL 7-10; Start 10/02/18 at 19:30 Heparin Sodium (Porcine) (Heparin (5000 Units/1ml)) 5,000 unit Q12 SC Last administered on 10/05/18 09:33; Admin Dose 5,000 UNIT; Start 10/02/18 at 21:00 Levalbuterol (Xopenex Neb) 1.25 mg Q4H RESP THERAPY PRN HHN wheezing Last administered on 10/02/18 23:29; Admin Dose 1.25 MG; Start 10/02/18 at 23:30 Ipratropium [place] (Atrovent 0.02% (Neb)) 0.5 mg Q4H RESP THERAPY PRN HHN SHORTNESS OF BREATH; Start 10/02/18 at 23:30 Aripiprazole (Abilify) 5 mg DAILY PO Last administered on 10/05/18 08:42; Admin Dose 5 MG; Start 10/03/18 at 09:00 Aspirin (Halfprin) 81 mg DAILY PO Last administered on 10/05/18 08:42; Admin Dose 81 MG; Start 10/03/18 at 09:00 Diphenhydramine HCl (Benadryl) 50 mg QHS PRN PO ITCHING; Start 10/03/18 at 00:30 Fluoxetine HCl (Prozac) 40 mg DAILY PO Last administered on 10/05/18 08:42; Admin Dose 40 MG; Start 10/03/18 at 09:00 Labetalol HCl (Normodyne) 300 mg DAILY PO Last administered on 10/05/18 08:43; Admin Dose 300 MG; Start 10/03/18 at 09:00 Nifedipine (Procardia Xl) 30 mg DAILY PO Last administered on 10/05/18 08:42; Admin Dose 30 MG; Start 10/03/18 at 09:00 Tamsulosin HCl (Flomax) 0.4 mg HS PO Last administered on 10/04/18 21:09; Admin Dose 0.4 MG; Start 10/03/18 at 21:00 Docusate Sodium (Colace) 200 mg BID PO Last administered on 10/04/18 21:09; Admin Dose 200 MG; Start 10/04/18 at 01:00 Polyethylene Glycol (Miralax) 17 gm DAILY PO Last administered on 10/05/18 08:42; Admin Dose 17 GM; Start 10/04/18 at 01:00 Sodium Chloride 1,000 ml @ 125 mls/hr Q8H IV Last administered on 10/05/18 08:38; Admin Dose 125 MLS/HR; Start 10/04/18 at 01:00 Meropenem/Sodium Chloride 50 ml @ 100 mls/hr Q8H IVPB Last administered on 10/05/18 08:41; Admin Dose 100 MLS/HR; Start 10/04/18 at 01:00 ANIBAL CARBALLO MD Oct 05, 2018 11:24
--- NOTE | 2018-10-05 13:06 | CONS ---
Date/Time of Note Date/Time of Note DATE: 10/05/18 TIME: 13:04 Assessment/Plan Assessment/Plan Hospital Course Patient is doing better today he is on nasal cannula looks comfortable no fevers. No labs this morning Microbiology: Blood cultures remain negative Antimicrobials: Meropenem and vancomycin Physical examination: Morbidly obese well-developed elderly man who is alert in no distress. Head atraumatic normocephalic sclera nonicteric vehicle mucosa dry neck is obese chest rise symmetrical breath sounds diminished bases. Heart: S1-S2. Abdomen obese distended bowel sounds hypoactive patient has mild tenderness on palpation. Extremities with bilateral lower extremities edema Assessment: 1. Severe sepsis 2. Acute pancreatitis 3. Acute respiratory failure 4. Left lower lobe pneumonia 5. Gallstones 6. Morbid obesity Plan: Improving, continue abx, no planned surgical intervention, f/u surgical rec-s, repeat cxr in am Result Diagram: 10/04/18 0536 10/05/18 0455 Results 24hrs Laboratory Tests Test 10/05/18 04:55 Sodium Level 145 H Potassium Level 3.2 L Chloride Level 107 Carbon Dioxide Level 31 Anion Gap 7 Blood Urea Nitrogen 23 H Creatinine 0.78 Est Glomerular Filtrat Rate mL/min > 60 Glucose Level 119 Calcium Level 8.8 Lipase 459 H Consultation Date/Type/Reason Admit Date/Time Oct 02, 2018 at 19:02 Initial Consult Date 10/03/18 Type of Consult id Requesting Provider: ASHLEY NICOLE MD Exam/Review of Systems Vital Signs Vitals Vital Signs Date Temp Pulse Resp B/P (MAP) Pulse Ox O2 O2 Flow FiO2 Time Delivery Rate 10/05/18 76 12:14 10/05/18 97 3.0 12:00 10/05/18 98.6 20 145/89 High Flow 11:18 (107) 10/05/18 30 10:13 Intake and Output 10/04/18 10/04/18 10/05/18 1414:59 22:59 06:59 IntakeIntake Total 1495 ml 1240 ml 2125 ml OutputOutput Total 300 ml 600 ml 900 ml BalanceBalance 1195 ml 640 ml 1225 ml Medications Medications Current Medications IV Flush (NS 3 ml) 3 ml PER PROTOCOL IV ; Start 10/02/18 at 19:30 Hydromorphone HCl (Dilaudid) 0.5 mg Q4H PRN IV SEVERE PAIN LEVEL 7-10; Start 10/02/18 at 19:30 Heparin Sodium (Porcine) (Heparin (5000 Units/1ml)) 5,000 unit Q12 SC Last administered on 10/05/18 09:33; Admin Dose 5,000 UNIT; Start 10/02/18 at 21:00 Levalbuterol (Xopenex Neb) 1.25 mg Q4H RESP THERAPY PRN HHN wheezing Last administered on 10/02/18 23:29; Admin Dose 1.25 MG; Start 10/02/18 at 23:30 Ipratropium [place] (Atrovent 0.02% (Neb)) 0.5 mg Q4H RESP THERAPY PRN HHN SHORTNESS OF BREATH; Start 10/02/18 at 23:30 Aripiprazole (Abilify) 5 mg DAILY PO Last administered on 10/05/18 08:42; Admin Dose 5 MG; Start 10/03/18 at 09:00 Aspirin (Halfprin) 81 mg DAILY PO Last administered on 10/05/18 08:42; Admin Dose 81 MG; Start 10/03/18 at 09:00 Diphenhydramine HCl (Benadryl) 50 mg QHS PRN PO ITCHING; Start 10/03/18 at 00:30 Fluoxetine HCl (Prozac) 40 mg DAILY PO Last administered on 10/05/18 08:42; Admin Dose 40 MG; Start 10/03/18 at 09:00 Labetalol HCl (Normodyne) 300 mg DAILY PO Last administered on 10/05/18 08:43; Admin Dose 300 MG; Start 10/03/18 at 09:00 Nifedipine (Procardia Xl) 30 mg DAILY PO Last administered on 10/05/18 08:42; Admin Dose 30 MG; Start 10/03/18 at 09:00 Tamsulosin HCl (Flomax) 0.4 mg HS PO Last administered on 10/04/18 21:09; Admin Dose 0.4 MG; Start 10/03/18 at 21:00 Docusate Sodium (Colace) 200 mg BID PO Last administered on 10/04/18 21:09; Admin Dose 200 MG; Start 10/04/18 at 01:00 Polyethylene Glycol (Miralax) 17 gm DAILY PO Last administered on 10/05/18 08:42; Admin Dose 17 GM; Start 10/04/18 at 01:00 Sodium Chloride 1,000 ml @ 125 mls/hr Q8H IV Last administered on 10/05/18 08:38; Admin Dose 125 MLS/HR; Start 10/04/18 at 01:00 Meropenem/Sodium Chloride 50 ml @ 100 mls/hr Q8H IVPB Last administered on 10/05/18 08:41; Admin Dose 100 MLS/HR; Start 10/04/18 at 01:00 LOPEZ SALAS NP Oct 05, 2018 13:06
[2018-10-05] MEDS: POTASSIUM CHLORIDE 100 ML IVPB SCH ×2 (14:25→21:08)
--- NOTE | 2018-10-05 14:32 | PN ---
Date/Time of Note Date/Time of Note DATE: 10/05/18 TIME: 14:29 Assessment/Plan Lines/Catheters IV [facility] (from [facility] Saline Lock Assessment/Plan Chief Complaint/Hosp Course 1. Acute pancreatitis possibly secondary to gallstones versus other etiologies. Gas bubbles with suggestions of infection with gas-forming bacteria. As we are not a hepatobiliary service, patient needs hepatobiliary surgeon to be involved in case he develops pancreatic necrosis, infection, abscess, with need for debridement; Hepatobiliary on the case; +bowel function -IV antibiotics> per ID/HBS -N.p.o -Judicious IV fluid resuscitation -Bull to monitor urine output for resuscitation -Pain control -Further imaging/eventual nasojejunal feeding tube to start tube feeds> per HPS 2. Tiny gallstones -As above -We will likely benefit from eventual cholecystectomy 3. BMI 39 with morbid obesity -Highly encourage eventual nutritional optimization -Highly encouraged eventual exercise 4. Hypertension -Diet and medication optimization -Highly encouraged weight loss 5. Prediabetes -Nutrition optimization -Highly encouraged weight loss 6. Schizophrenia, mild per family -Psychiatric optimization 7. Dementia -Medical management 8. Leukocytosis: improving -as above 8. Respiratory distress:s/p high flow o2: cxr: Patchy left lower lobe infiltrate/atelectasis -supportive -judicious fluids -as above Thank you. Patient seen and examined in collaboration with Dr. Jason Panda. Subjective 24 Hr Interval Summary Feels ok. No acute abdominal pain. Off of high flow O2. +bowel function. WBC improving. No fevers, chills, sob, congested cough, cp, palpitations, mitchell, dizziness, n/v/d/dysuria. Exam/Review of Systems Vital Signs Vitals Vital Signs Date Temp Pulse Resp B/P (MAP) Pulse Ox O2 O2 Flow FiO2 Time Delivery Rate 10/05/18 76 12:14 10/05/18 97 3.0 12:00 10/05/18 98.6 20 145/89 High Flow 11:18 (107) 10/05/18 30 10:13 Intake and Output 10/04/18 10/04/18 10/05/18 1515:00 23:00 07:00 IntakeIntake Total 1495 ml 1240 ml 2125 ml OutputOutput Total 300 ml 600 ml 900 ml BalanceBalance 1195 ml 640 ml 1225 ml Exam Free Text/Dictation Constitutional: alert, oriented, NAD, obese Psych: min anxiety; No confusion Head: normocephalic, atraumatic Eyes: nl conjunctiva, EOMI, PERRL; No icteric ENMT: nl external ears & nose, nl lips & teeth Neck: supple, non-tender; No jvd Respiratory: normal air movement, labored breathing (Minimal-improved) No congested cough, No wheezing Cardiovascular: regular rate and rhythm No edema Gastrointestinal: soft, distended, nontender, other (Ventral umbilical hernia); No rebound or guarding Genitourinary - Male: nl scrotum Musculoskeletal: nl extremities to inspection; No joint tenderness Extremities: normal pulses; No calf tenderness, No cyanosis Neurological: nl mental status, nl speech, nl strength Skin: nl turgor; No rash or lesions, No diaphoresis Lymph: nl lymph nodes Results Result Diagram: 10/04/18 0536 10/05/18 0455 LESLYE ROJAS NP Oct 05, 2018 14:32
[2018-10-05] MEDS: TAMSULOSIN (SR) 0.4 MG CAP PO SCH (21:09)
[2018-10-06] VITALS (12 sets, daily range): BP systolic 121–154; BP diastolic 80–95; PULSE 85–115; RESP 18–22
[2018-10-06] MEDS: MEROPENEM 1 GM/50ML(PMX) 50 ML IVPB SCH ×3 (01:00→16:38)
[2018-10-06] MEDS: SOD CHLORIDE 0.9% 1,000 ML IV SCH ×3 (01:00→15:09)
[2018-10-06] MEDS: DOCUSATE SODIUM 100 MG CAP PO SCH ×2 (08:36→21:00)
[2018-10-06] MEDS: POLYETHYLENE GLYCOL 17 GM PACKET PO SCH (08:36)
[2018-10-06] MEDS: LABETALOL 100 MG TAB PO SCH (08:37)
[2018-10-06] MEDS: ARIPIPRAZOLE 5 MG TAB PO SCH (08:37)
[2018-10-06] MEDS: FLUOXETINE 20 MG CAP PO SCH (08:37)
[2018-10-06] MEDS: ASPIRIN (EC) 81 MG TAB PO SCH (08:37)
[2018-10-06] MEDS: NIFEdipine (XL) 30 MG TAB PO SCH (08:38)
[2018-10-06] MEDS: HEPARIN 5,000 UNIT/1 ML VIAL SC SCH ×2 (09:05→21:04)
--- NOTE | 2018-10-06 10:36 | PN ---
Date/Time of Note Date/Time of Note DATE: 10/06/18 TIME: 10:30 Assessment/Plan Lines/Catheters IV Catheter Type (from [facility]): Peripheral IV Assessment/Plan Chief Complaint/Hosp Course 1. Acute pancreatitis possibly secondary to gallstones versus other etiologies. Gas bubbles with suggestions of infection with gas-forming bacteria. As we are not a hepatobiliary service, patient needs hepatobiliary surgeon to be involved in case he develops pancreatic necrosis, infection, abscess, with need for debridement; Hepatobiliary on the case; +bowel function -IV antibiotics> per ID/HBS -Judicious IV fluid resuscitation -Bull to monitor urine output for resuscitation -Pain control -Further imaging/eventual nasojejunal feeding tube to start tube feeds/resumption of enteral nutrition vs. parenteral > per HPS 2. Tiny gallstones -As above -We will likely benefit from eventual cholecystectomy 3. BMI 39 with morbid obesity -Highly encourage eventual nutritional optimization -Highly encouraged eventual exercise 4. Hypertension -Diet and medication optimization -Highly encouraged weight loss 5. Prediabetes -Nutrition optimization -Highly encouraged weight loss 6. Schizophrenia, mild per family -Psychiatric optimization 7. Dementia -Medical management 8. Leukocytosis:resolved -as above 8. Respiratory distress:s/p high flow o2: cxr: Patchy left lower lobe infiltrate/atelectasis -supportive -judicious fluids -as above Thank you. Patient seen and examined in collaboration with Dr. Jason Panda. Subjective 24 Hr Interval Summary Tachycardia. WBC downtrending. Continues on low flow O2. No fevers, chills, sob, congested cough, cp, palpitations, mitchell, dizziness, n/v/d/dysuria. Exam/Review of Systems Vital Signs Vitals Vital Signs Date Temp Pulse Resp B/P (MAP) Pulse Ox O2 O2 Flow FiO2 Time Delivery Rate 10/06/18 107 09:10 10/06/18 Nasal 2.0 08:00 Cannula 10/06/18 98.2 22 121/80 98 07:23 (94) 10/05/18 30 10:13 Intake and Output 10/05/18 10/05/18 10/06/18 1515:00 23:00 07:00 IntakeIntake Total 1575 ml 100 ml OutputOutput Total 200 ml 1000 ml BalanceBalance 1375 ml -900 ml Exam Free Text/Dictation Constitutional: alert, oriented, NAD, obese Psych: min anxiety; No confusion Head: normocephalic, atraumatic Eyes: nl conjunctiva, EOMI, PERRL; No icteric ENMT: nl external ears & nose, nl lips & teeth Neck: supple, non-tender; No jvd Respiratory: normal air movement, labored breathing (Minimal-improved) No congested cough, No wheezing Cardiovascular: regular rate and rhythm No edema Gastrointestinal: soft, distended, nontender, other (Ventral umbilical hernia); No rebound or guarding Genitourinary - Male: nl scrotum Musculoskeletal: nl extremities to inspection; No joint tenderness Extremities: normal pulses; No calf tenderness, No cyanosis Neurological: nl mental status, nl speech, nl strength Skin: nl turgor; No rash or lesions, No diaphoresis Lymph: nl lymph nodes Results Result Diagram: 10/06/18 0455 10/06/18 0455 LESLYE ROJAS NP Oct 06, 2018 10:36
--- NOTE | 2018-10-06 15:04 | CONS ---
Date/Time of Note Date/Time of Note DATE: 10/06/18 TIME: 15:03 Assessment/Plan Assessment/Plan Hospital Course Patient is awake feels okay looks comfortable no fevers he is on nasal cannula with shortness of breath on exertion WBC 16 platelets 210 neutrophils 81.7 BUN 19 creatinine 0.76 Microbiology: Blood cultures remain negative Antimicrobials: Meropenem and vancomycin Physical examination: Morbidly obese well-developed elderly man who is alert in no distress. Head atraumatic normocephalic sclera nonicteric vehicle mucosa dry neck is obese chest rise symmetrical breath sounds diminished bases. Heart: S1-S2. Abdomen obese distended bowel sounds hypoactive patient has mild tenderness on palpation. Extremities with bilateral lower extremities edema Assessment: 1. Severe sepsis 2. Acute pancreatitis 3. Acute respiratory failure, likely obesity hypoventilation syndrome 4. Left lower lobe pneumonia 5. Gallstones 6. Morbid obesity Plan: Remains stable, WBC trending down, continue abx, f/u surgical rec-s==> no planned surgical intervention Result Diagram: 10/06/18 0455 10/06/18 0455 Results 24hrs Laboratory Tests Test 10/06/18 04:55 White Blood Count 16.0 H Red Blood Count 4.87 Hemoglobin 14.1 Hematocrit 42.3 Mean Corpuscular Volume 86.9 Mean Corpuscular Hemoglobin 29.0 Mean Corpuscular Hemoglobin Concent 33.3 Red Cell Distribution Width 12.9 Platelet Count 210 Mean Platelet Volume 10.9 H Immature Granulocytes % 0.900 H Neutrophils % 81.7 H Lymphocytes % 8.5 L Monocytes % 6.6 Eosinophils % 2.1 Basophils % 0.2 Nucleated Red Blood Cells % 0.0 Immature Granulocytes # 0.150 H Neutrophils # 13.1 H Lymphocytes # 1.4 Monocytes # 1.1 H Eosinophils # 0.3 Basophils # 0.0 Nucleated Red Blood Cells # 0.0 Sodium Level 141 Potassium Level 3.3 L Chloride Level 104 Carbon Dioxide Level 26 Anion Gap 11 Blood Urea Nitrogen 19 Creatinine 0.76 Est Glomerular Filtrat Rate mL/min > 60 Glucose Level 106 Calcium Level 8.9 Lipase 437 H Consultation Date/Type/Reason Admit Date/Time Oct 02, 2018 at 19:02 Initial Consult Date 10/03/18 Type of Consult id Requesting Provider: ASHLEY NICOLE MD Exam/Review of Systems Vital Signs Vitals Vital Signs Date Temp Pulse Resp B/P (MAP) Pulse Ox O2 O2 Flow FiO2 Time Delivery Rate 10/06/18 88 12:30 10/06/18 98.0 21 130/81 98 11:43 (97) 10/06/18 Nasal 2.0 08:00 Cannula 10/05/18 30 10:13 Intake and Output 10/05/18 10/05/18 10/06/18 1515:00 23:00 07:00 IntakeIntake Total 1575 ml 100 ml OutputOutput Total 200 ml 1000 ml BalanceBalance 1375 ml -900 ml Medications Medications Current Medications IV Flush (NS 3 ml) 3 ml PER PROTOCOL IV ; Start 10/02/18 at 19:30 Hydromorphone HCl (Dilaudid) 0.5 mg Q4H PRN IV SEVERE PAIN LEVEL 7-10; Start 10/02/18 at 19:30 Heparin Sodium (Porcine) (Heparin (5000 Units/1ml)) 5,000 unit Q12 SC Last administered on 10/06/18at 09:05; Admin Dose 5,000 UNIT; Start 10/02/18 at 21:00 Levalbuterol (Xopenex Neb) 1.25 mg Q4H RESP THERAPY PRN HHN wheezing Last administered on 10/02/18at 23:29; Admin Dose 1.25 MG; Start 10/02/18 at 23:30 Ipratropium [place] (Atrovent 0.02% (Neb)) 0.5 mg Q4H RESP THERAPY PRN HHN SHORTNESS OF BREATH; Start 10/02/18 at 23:30 Aripiprazole (Abilify) 5 mg DAILY PO Last administered on 10/06/18at 08:37; Admin Dose 5 MG; Start 10/03/18 at 09:00 Aspirin (Halfprin) 81 mg DAILY PO Last administered on 10/06/18at 08:37; Admin Dose 81 MG; Start 10/03/18 at 09:00 Diphenhydramine HCl (Benadryl) 50 mg QHS PRN PO ITCHING; Start 10/03/18 at 00:30 Fluoxetine HCl (Prozac) 40 mg DAILY PO Last administered on 10/06/18at 08:37; Admin Dose 40 MG; Start 10/03/18 at 09:00 Labetalol HCl (Normodyne) 300 mg DAILY PO Last administered on 10/06/18 08:37; Admin Dose 300 MG; Start 10/03/18 at 09:00 Nifedipine (Procardia Xl) 30 mg DAILY PO Last administered on 10/06/18 08:38; Admin Dose 30 MG; Start 10/03/18 at 09:00 Tamsulosin HCl (Flomax) 0.4 mg HS PO Last administered on 10/05/18 21:09; Admin Dose 0.4 MG; Start 10/03/18 at 21:00 Docusate Sodium (Colace) 200 mg BID PO Last administered on 10/06/18 08:36; Admin Dose 200 MG; Start 10/04/18 at 01:00 Polyethylene Glycol (Miralax) 17 gm DAILY PO Last administered on 10/06/18 08 :36; Admin Dose 17 GM; Start 10/04/18 at 01:00 Sodium Chloride 1,000 ml @ 125 mls/hr Q8H IV Last administered on 10/06/18 01:00; Admin Dose 125 MLS/HR; Start 10/04/18 at 01:00 Meropenem/Sodium Chloride 50 ml @ 100 mls/hr Q8H IVPB Last administered on 10/06/18 08:37; Admin Dose 100 MLS/HR; Start 10/04/18 at 01:00 LOPEZ SALAS NP Oct 06, 2018 15:04
--- NOTE | 2018-10-06 15:14 | PN ---
Date/Time of Note Date/Time of Note DATE: 10/06/18 TIME: 15:10 Assessment/Plan VTE [place]axis [place] [facility] [place]: 4 [place]CD [place] [facility] [place] Pharmacological prophylaxis: NA/contraindicated Pharm contraindication: surgical contra Lines/Catheters IV C[facility] Type (from [facility] Peripheral IV Assessment/Plan Hospital Course 1. Pancreatitis likely secondary to gallstones with superimposed infection Continue IV fluids Continue IV antibiotics General surgery and hepatobiliary surgery following Eventual lap afshan Pain is controlled 2. Diabetes Continue regimen 3. Hypoxia secondary to fluid overload-appears to be resolved 4. History of hypertension Hold home meds Prophylaxis: SCD Result Diagram: 10/06/185 10/06/18454 Results 24hrs Laboratory Tests Test 10/06/18 04:55 White Blood Count 16.0 H Red Blood Count 4.87 Hemoglobin 14.1 Hematocrit 42.3 Mean Corpuscular Volume 86.9 Mean Corpuscular Hemoglobin 29.0 Mean Corpuscular Hemoglobin Concent 33.3 Red Cell Distribution Width 12.9 Platelet Count 210 Mean Platelet Volume 10.9 H Immature Granulocytes % 0.900 H Neutrophils % 81.7 H Lymphocytes % 8.5 L Monocytes % 6.6 Eosinophils % 2.1 Basophils % 0.2 Nucleated Red Blood Cells % 0.0 Immature Granulocytes # 0.150 H Neutrophils # 13.1 H Lymphocytes # 1.4 Monocytes # 1.1 H Eosinophils # 0.3 Basophils # 0.0 Nucleated Red Blood Cells # 0.0 Sodium Level 141 Potassium Level 3.3 L Chloride Level 104 Carbon Dioxide Level 26 Anion Gap 11 Blood Urea Nitrogen 19 Creatinine 0.76 Est Glomerular Filtrat Rate mL/min > 60 Glucose Level 106 Calcium Level 8.9 Lipase 437 H Subjective 24 Hr Interval Summary Constitutional: no complaints Exam/Review of Systems Vital Signs Vitals Vital Signs Date Temp Pulse Resp B/P (MAP) Pulse Ox O2 O2 Flow FiO2 Time Delivery Rate 10/06/18 88 12:30 10/06/18 98.0 21 130/81 98 11:43 (97) 10/06/18 Nasal 2.0 08:00 Cannula 10/05/18 30 10:13 Intake and Output 10/05/18 10/05/18 10/06/18 1515:00 23:00 07:00 IntakeIntake Total 1575 ml 100 ml OutputOutput Total 200 ml 1000 ml BalanceBalance 1375 ml -900 ml Exam Constitutional: alert, oriented Respiratory: clear to auscultation Cardiovascular: regular rate and rhythm Gastrointestinal: soft; No distended Musculoskeletal: nl extremities to inspection Medications Medications Current Medications IV Flush (NS 3 ml) 3 ml PER PROTOCOL IV ; Start 10/02/18 at 19:30 Hydromorphone HCl (Dilaudid) 0.5 mg Q4H PRN IV SEVERE PAIN LEVEL 7-10; Start 10/02/18 at 19:30 Heparin Sodium (Porcine) (Heparin (5000 Units/1ml)) 5,000 unit Q12 SC Last administered on 10/06/18 09:05; Admin Dose 5,000 UNIT; Start 10/02/18 at 21:00 Levalbuterol (Xopenex Neb) 1.25 mg Q4H RESP THERAPY PRN HHN wheezing Last administered on 10/02/18at 23:29; Admin Dose 1.25 MG; Start 10/02/18 at 23:30 Ipratropium [place] (Atrovent 0.02% (Neb)) 0.5 mg Q4H RESP THERAPY PRN HHN SHORTNESS OF BREATH; Start 10/02/18 at 23:30 Aripiprazole (Abilify) 5 mg DAILY PO Last administered on 10/06/18at 08:37; Admin Dose 5 MG; Start 10/03/18 at 09:00 Aspirin (Halfprin) 81 mg DAILY PO Last administered on 10/06/18at 08:37; Admin Dose 81 MG; Start 10/03/18 at 09:00 Diphenhydramine HCl (Benadryl) 50 mg QHS PRN PO ITCHING; Start 10/03/18 at 00:30 Fluoxetine HCl (Prozac) 40 mg DAILY PO Last administered on 10/06/18 08:37; Admin Dose 40 MG; Start 10/03/18 at 09:00 Labetalol HCl (Normodyne) 300 mg DAILY PO Last administered on 10/06/18 08:37; Admin Dose 300 MG; Start 10/03/18 at 09:00 Nifedipine (Procardia Xl) 30 mg DAILY PO Last administered on 10/06/18 08:38; Admin Dose 30 MG; Start 10/03/18 at 09:00 Tamsulosin HCl (Flomax) 0.4 mg HS PO Last administered on 10/05/18 21:09; Admin Dose 0.4 MG; Start 10/03/18 at 21:00 Docusate Sodium (Colace) 200 mg BID PO Last administered on 10/06/18 08:36; Admin Dose 200 MG; Start 10/04/18 at 01:00 Polyethylene Glycol (Miralax) 17 gm DAILY PO Last administered on 10/06/18 08:36; Admin Dose 17 GM; Start 10/04/18 at 01:00 Sodium Chloride 1,000 ml @ 125 mls/hr Q8H IV Last administered on 10/06/18 15:09; Admin Dose 125 MLS/HR; Start 10/04/18 at 01:00 Meropenem/Sodium Chloride 50 ml @ 100 mls/hr Q8H IVPB Last administered on 10/06/18 08:37; Admin Dose 100 MLS/HR; Start 10/04/18 at 01:00 TRIP MONTOYA Oct 06, 2018 15:14
[2018-10-06] MEDS: TAMSULOSIN (SR) 0.4 MG CAP PO SCH (21:00)
[2018-10-07] VITALS (13 sets, daily range): BP systolic 131–150; BP diastolic 81–97; PULSE 58–111; RESP 18–20
[2018-10-07] MEDS: MEROPENEM 1 GM/50ML(PMX) 50 ML IVPB SCH ×3 (02:22→16:15)
[2018-10-07] MEDS: SOD CHLORIDE 0.9% 1,000 ML IV SCH ×2 (02:23→08:29)
[2018-10-07] MEDS: FLUOXETINE 20 MG CAP PO SCH (08:20)
[2018-10-07] MEDS: ARIPIPRAZOLE 5 MG TAB PO SCH (08:20)
[2018-10-07] MEDS: DOCUSATE SODIUM 100 MG CAP PO SCH ×2 (08:20→20:39)
[2018-10-07] MEDS: ASPIRIN (EC) 81 MG TAB PO SCH (08:20)
[2018-10-07] MEDS: POLYETHYLENE GLYCOL 17 GM PACKET PO SCH (08:21)
[2018-10-07] MEDS: LABETALOL 100 MG TAB PO SCH (08:21)
[2018-10-07] MEDS: NIFEdipine (XL) 30 MG TAB PO SCH (08:21)
[2018-10-07] MEDS: HEPARIN 5,000 UNIT/1 ML VIAL SC SCH ×2 (08:27→20:40)
[2018-10-07] MEDS: POTASSIUM CHLORIDE 30 MEQ in SOD CHLORIDE 0.9% 1,000 ML IV SCH ×2 (11:40→22:09)
--- NOTE | 2018-10-07 14:12 | PN ---
Date/Time of Note Date/Time of Note DATE: 10/07/18 TIME: 14:11 Assessment/Plan VTE Prophylaxis [place] [facility] [place] risk: 5 SCD applied (from [facility] [place] Yes Pharmacological prophylaxis: NA/contraindicated Pharm contraindication: surgical contra Lines/Catheters IV Catheter Type (from [facility]): Peripheral IV Assessment/Plan Hospital Course 1. Pancreatitis likely secondary to gallstones with superimposed infection Continue IV fluids Continue IV antibiotics General surgery and hepatobiliary surgery following Eventual lap afshan Pain is controlled 2. Diabetes Continue regimen 3. Hypoxia secondary to fluid overload-appears to be resolved 4. History of hypertension Hold home meds Prophylaxis: SCD Result Diagram: 10/07/18 0511 10/07/18 0511 Results 24hrs Laboratory Tests Test 10/07/18 05:11 White Blood Count 15.2 H Red Blood Count 4.82 Hemoglobin 13.9 L Hematocrit 42.1 Mean Corpuscular Volume 87.3 Mean Corpuscular Hemoglobin 28.8 L Mean Corpuscular Hemoglobin Concent 33.0 Red Cell Distribution Width 12.6 Platelet Count 214 Mean Platelet Volume 10.8 H Immature Granulocytes % 1.900 H Neutrophils % 80.5 H Lymphocytes % 8.7 L Monocytes % 6.6 Eosinophils % 1.9 Basophils % 0.4 Nucleated Red Blood Cells % 0.0 Immature Granulocytes # 0.290 H Neutrophils # 12.2 H Lymphocytes # 1.3 Monocytes # 1.0 H Eosinophils # 0.3 Basophils # 0.1 Nucleated Red Blood Cells # 0.0 Sodium Level 144 Potassium Level 3.3 L Chloride Level 103 Carbon Dioxide Level 27 Anion Gap 14 H Blood Urea Nitrogen 19 Creatinine 0.71 Est Glomerular Filtrat Rate mL/min > 60 Glucose Level 102 Calcium Level 8.7 Total Bilirubin 0.2 Direct Bilirubin 0.00 Indirect Bilirubin 0.2 Aspartate Amino Transf (AST/SGOT) 43 Alanine Aminotransferase (ALT/SGPT) 45 Alkaline Phosphatase 61 Total Protein 6.4 Albumin 3.3 Globulin 3.10 Albumin/Globulin Ratio 1.06 Lipase 413 H Subjective 24 Hr Interval Summary Constitutional: no complaints Exam/Review of Systems Vital Signs Vitals Vital Signs Date Temp Pulse Resp B/P (MAP) Pulse Ox O2 O2 Flow FiO2 Time Delivery Rate 10/07/18 85 12:43 10/07/18 98.6 18 131/92 94 12:02 (105) 10/07/18 Nasal 3.0 08:03 Cannula 10/05/18 30 10:13 Intake and Output 10/06/18 10/06/18 10/07/18 1515:00 23:00 07:00 IntakeIntake Total 50 ml 1150 ml 250 ml OutputOutput Total 500 ml 600 ml BalanceBalance 50 ml 650 ml -350 ml Exam Constitutional: alert Respiratory: clear to auscultation Cardiovascular: regular rate and rhythm Gastrointestinal: soft; No distended Musculoskeletal: nl extremities to inspection Medications Medications Current Medications IV Flush (NS 3 ml) 3 ml PER PROTOCOL IV ; Start 10/02/18 at 19:30 Hydromorphone HCl (Dilaudid) 0.5 mg Q4H PRN IV SEVERE PAIN LEVEL 7-10; Start 10/02/18 at 19:30 Heparin Sodium (Porcine) (Heparin (5000 Units/1ml)) 5,000 unit Q12 SC Last administered on 10/07/18at 08:27; Admin Dose 5,000 UNIT; Start 10/02/18 at 21:00 Levalbuterol (Xopenex Neb) 1.25 mg Q4H RESP THERAPY PRN HHN wheezing Last administered on 10/02/18at 23:29; Admin Dose 1.25 MG; Start 10/02/18 at 23:30 Ipratropium [place] (Atrovent 0.02% (Neb)) 0.5 mg Q4H RESP THERAPY PRN HHN SHORTNESS OF BREATH; Start 10/02/18 at 23:30 Aripiprazole (Abilify) 5 mg DAILY PO Last administered on 10/07/18at 08:20; Admin Dose 5 MG; Start 10/03/18 at 09:00 Aspirin (Halfprin) 81 mg DAILY PO Last administered on 10/07/18 08:20; Admin Dose 81 MG; Start 10/03/18 at 09:00 Diphenhydramine HCl (Benadryl) 50 mg QHS PRN PO ITCHING; Start 10/03/18 at 00:30 Fluoxetine HCl (Prozac) 40 mg DAILY PO Last administered on 10/07/18 08:20; Admin Dose 40 MG; Start 10/03/18 at 09:00 Labetalol HCl (Normodyne) 300 mg DAILY PO Last administered on 10/07/18 08:21; Admin Dose 300 MG; Start 10/03/18 at 09:00 Nifedipine (Procardia Xl) 30 mg DAILY PO Last administered on 10/07/18 08:21; Admin Dose 30 MG; Start 10/03/18 at 09:00 Tamsulosin HCl (Flomax) 0.4 mg HS PO Last administered on 10/06/18 21:00; Admin Dose 0.4 MG; Start 10/03/18 at 21:00 Docusate Sodium (Colace) 200 mg BID PO Last administered on 10/07/18 08:20; Admin Dose 200 MG; Start 10/04/18 at 01:00 Polyethylene Glycol (Miralax) 17 gm DAILY PO Last administered on 10/07/18 08:21; Admin Dose 17 GM; Start 10/04/18 at 01:00 Meropenem/Sodium Chloride 50 ml @ 100 mls/hr Q8H IVPB Last administered on 10/07/18 08:17; Admin Dose 100 MLS/HR; Start 10/04/18 at 01:00 Potassium Chloride 30 meq/ Sodium Chloride 1,015 ml @ 100 mls/hr Q10H9M IV Last administered on 10/07/18at 11:40; Admin Dose 100 MLS/HR; Start 10/07/18 at 12:00 TRIP MONTOYA Oct 07, 2018 14:12
--- NOTE | 2018-10-07 15:39 | CONS ---
Date/Time of Note Date/Time of Note DATE: 10/07/18 TIME: 15:38 Assessment/Plan Assessment/Plan Hospital Course Patient is alert and feels better, no fevers overnight Microbiology: Blood cultures remain negative Antimicrobials: Meropenem, s/p vancomycin Physical examination: Morbidly obese well-developed elderly man who is alert in no distress. Head atraumatic normocephalic sclera nonicteric vehicle mucosa dry neck is obese chest rise symmetrical breath sounds diminished bases. Heart: S1-S2. Abdomen obese distended bowel sounds hypoactive patient has mild tenderness on palpation. Extremities with bilateral lower extremities edema Assessment: 1. Severe sepsis, resolving 2. Acute pancreatitis 3. Acute respiratory failure, likely obesity hypoventilation syndrome 4. Left lower lobe pneumonia 5. Gallstones 6. Morbid obesity Plan: Slowly improving, continue abx, f/u surgical rec-s==> no planned surgical intervention Result Diagram: 10/07/18 0511 10/07/18 0511 Results 24hrs Laboratory Tests Test 10/07/18 05:11 White Blood Count 15.2 H Red Blood Count 4.82 Hemoglobin 13.9 L Hematocrit 42.1 Mean Corpuscular Volume 87.3 Mean Corpuscular Hemoglobin 28.8 L Mean Corpuscular Hemoglobin Concent 33.0 Red Cell Distribution Width 12.6 Platelet Count 214 Mean Platelet Volume 10.8 H Immature Granulocytes % 1.900 H Neutrophils % 80.5 H Lymphocytes % 8.7 L Monocytes % 6.6 Eosinophils % 1.9 Basophils % 0.4 Nucleated Red Blood Cells % 0.0 Immature Granulocytes # 0.290 H Neutrophils # 12.2 H Lymphocytes # 1.3 Monocytes # 1.0 H Eosinophils # 0.3 Basophils # 0.1 Nucleated Red Blood Cells # 0.0 Sodium Level 144 Potassium Level 3.3 L Chloride Level 103 Carbon Dioxide Level 27 Anion Gap 14 H Blood Urea Nitrogen 19 Creatinine 0.71 Est Glomerular Filtrat Rate mL/min > 60 Glucose Level 102 Calcium Level 8.7 Total Bilirubin 0.2 Direct Bilirubin 0.00 Indirect Bilirubin 0.2 Aspartate Amino Transf (AST/SGOT) 43 Alanine Aminotransferase (ALT/SGPT) 45 Alkaline Phosphatase 61 Total Protein 6.4 Albumin 3.3 Globulin 3.10 Albumin/Globulin Ratio 1.06 Lipase 413 H Consultation Date/Type/Reason Admit Date/Time Oct 02, 2018 at 19:02 Initial Consult Date 10/03/18 Type of Consult id Requesting Provider: ASHLEY NICOLE MD Exam/Review of Systems Vital Signs Vitals Vital Signs Date Temp Pulse Resp B/P (MAP) Pulse Ox O2 O2 Flow FiO2 Time Delivery Rate 10/07/18 98.7 88 18 143/81 97 15:26 (101) 10/07/18 3.0 14:38 10/07/18 Nasal 08:03 Cannula 10/05/18 30 10:13 Intake and Output 10/06/18 10/06/18 10/07/18 1515:00 23:00 07:00 IntakeIntake Total 50 ml 1150 ml 250 ml OutputOutput Total 500 ml 600 ml BalanceBalance 50 ml 650 ml -350 ml Medications Medications Current Medications IV Flush (NS 3 ml) 3 ml PER PROTOCOL IV ; Start 10/02/18 at 19:30 Hydromorphone HCl (Dilaudid) 0.5 mg Q4H PRN IV SEVERE PAIN LEVEL 7-10; Start 10/02/18 at 19:30 Heparin Sodium (Porcine) (Heparin (5000 Units/1ml)) 5,000 unit Q12 SC Last administered on 10/07/18at 08:27; Admin Dose 5,000 UNIT; Start 10/02/18 at 21:00 Levalbuterol (Xopenex Neb) 1.25 mg Q4H RESP THERAPY PRN HHN wheezing Last administered on 10/02/18at 23:29; Admin Dose 1.25 MG; Start 10/02/18 at 23:30 Ipratropium [place] (Atrovent 0.02% (Neb)) 0.5 mg Q4H RESP THERAPY PRN HHN SHORTNESS OF BREATH; Start 10/02/18 at 23:30 Aripiprazole (Abilify) 5 mg DAILY PO Last administered on 10/07/18at 08:20; Admin Dose 5 MG; Start 10/03/18 at 09:00 Aspirin (Halfprin) 81 mg DAILY PO Last administered on 10/07/18at 08:20; Admin Dose 81 MG; Start 10/03/18 at 09:00 Diphenhydramine HCl (Benadryl) 50 mg QHS PRN PO ITCHING; Start 10/03/18 at 00:30 Fluoxetine HCl (Prozac) 40 mg DAILY PO Last administered on 10/07/18 08:20; Admin Dose 40 MG; Start 10/03/18 at 09:00 Labetalol HCl (Normodyne) 300 mg DAILY PO Last administered on 10/07/18 08:21; Admin Dose 300 MG; Start 10/03/18 at 09:00 Nifedipine (Procardia Xl) 30 mg DAILY PO Last administered on 10/07/18 08:21; Admin Dose 30 MG; Start 10/03/18 at 09:00 Tamsulosin HCl (Flomax) 0.4 mg HS PO Last administered on 10/06/18 21:00; Admin Dose 0.4 MG; Start 10/03/18 at 21:00 Docusate Sodium (Colace) 200 mg BID PO Last administered on 10/07/18 08:20; Admin Dose 200 MG; Start 10/04/18 at 01:00 Polyethylene Glycol (Miralax) 17 gm DAILY PO Last administered on 10/07/18 08:21; Admin Dose 17 GM; Start 10/04/18 at 01:00 Meropenem/Sodium Chloride 50 ml @ 100 mls/hr Q8H IVPB Last administered on 10/07/18 08:17; Admin Dose 100 MLS/HR; Start 10/04/18 at 01:00 Potassium Chloride 30 meq/ Sodium Chloride 1,015 ml @ 100 mls/hr Q10H9M IV Last administered on 10/07/18 11:40; Admin Dose 100 MLS/HR; Start 10/07/18 at 12:00 LOPEZ SALAS NP Oct 07, 2018 15:39
[2018-10-07] MEDS: TAMSULOSIN (SR) 0.4 MG CAP PO SCH (20:39)
--- NOTE | 2018-10-07 23:10 | PN ---
Date/Time of Note Date/Time of Note DATE: 10/07/18 TIME: 23:05 Assessment/Plan Lines/Catheters IV Catheter Type (from [facility]): Peripheral IV Bull in Place (from [facility]): No Assessment/Plan Chief Complaint/Hosp Course 1. Acute pancreatitis possibly secondary to gallstones versus other etiologies. Gas bubbles with suggestions of infection with gas-forming bacteria. As we are not a hepatobiliary service, patient needs hepatobiliary surgeon to be involved in case he develops pancreatic necrosis, infection, abscess, with need for debridement; Hepatobiliary on the case; +bowel function; -IV antibiotics> per ID/HBS -Judicious IV fluid resuscitation -Pain control -Further imaging/eventual nasojejunal feeding tube to start tube feeds/resumption of enteral nutrition vs. parenteral > per HBS>HBS follow up 2. Tiny gallstones -As above -We will likely benefit from eventual cholecystectomy 3. BMI 39 with morbid obesity -Highly encourage eventual nutritional optimization -Highly encouraged eventual exercise 4. Hypertension -Diet and medication optimization -Highly encouraged weight loss 5. Prediabetes -Nutrition optimization -Highly encouraged weight loss 6. Schizophrenia, mild per family -Psychiatric optimization 7. Dementia -Medical management 8. Leukocytosis: improved -as above 8. Respiratory distress:s/p high flow o2: improved -supportive -judicious fluids -as above Thank you. Patient seen and examined in collaboration with Dr. Jason Panda. Subjective 24 Hr Interval Summary Feels well. No fevers, chills, sob, congested cough, cp, palpitations, mitchell, dizziness, n/v/d/dysuria. +bowel function. WBC improving. Exam/Review of Systems Vital Signs Vitals Vital Signs Date Temp Pulse Resp B/P (MAP) Pulse Ox O2 O2 Flow FiO2 Time Delivery Rate 10/07/18 98.5 90 18 150/90 100 20:13 (110) 10/07/18 Nasal 3.0 20:00 Cannula 10/05/18 30 10:13 Intake and Output 10/06/18 10/06/18 10/07/18 1515:00 23:00 07:00 IntakeIntake Total 50 ml 1150 ml 250 ml OutputOutput Total 500 ml 600 ml BalanceBalance 50 ml 650 ml -350 ml Exam Free Text/Dictation Constitutional: alert, oriented, NAD, obese Psych: nl mood No confusion Head: normocephalic, atraumatic Eyes: nl conjunctiva, EOMI, PERRL; No icteric ENMT: nl external ears & nose, nl lips & teeth Neck: supple, non-tender; No jvd Respiratory: normal air movement, labored breathing (Minimal-improved) No congested cough, No wheezing Cardiovascular: regular rate and rhythm No edema Gastrointestinal: distended, nontender, other (Ventral umbilical hernia); No rebound or guarding or rigid Genitourinary - Male: nl scrotum Musculoskeletal: nl extremities to inspection; No joint tenderness Extremities: normal pulses; No calf tenderness, No cyanosis Neurological: nl mental status, nl speech, nl strength Skin: nl turgor; No rash or lesions, No diaphoresis Lymph: nl lymph nodes Results Result Diagram: 10/07/18 0511 10/07/18 0511 LESLYE ROJAS NP Oct 07, 2018 23:10
[2018-10-08] VITALS (12 sets, daily range): BP systolic 131–160; BP diastolic 74–97; PULSE 74–97; RESP 18
[2018-10-08] MEDS: MEROPENEM 1 GM/50ML(PMX) 50 ML IVPB SCH ×3 (00:30→17:06)
[2018-10-08] MEDS: POTASSIUM CHLORIDE 30 MEQ in SOD CHLORIDE 0.9% 1,000 ML IV SCH ×2 (08:18→17:05)
[2018-10-08] MEDS: FLUOXETINE 20 MG CAP PO SCH (08:45)
[2018-10-08] MEDS: ARIPIPRAZOLE 5 MG TAB PO SCH (08:45)
[2018-10-08] MEDS: LABETALOL 100 MG TAB PO SCH (08:47)
[2018-10-08] MEDS: DOCUSATE SODIUM 100 MG CAP PO SCH ×2 (08:47→21:36)
[2018-10-08] MEDS: NIFEdipine (XL) 30 MG TAB PO SCH (08:48)
[2018-10-08] MEDS: POLYETHYLENE GLYCOL 17 GM PACKET PO SCH (08:52)
[2018-10-08] MEDS: ASPIRIN (EC) 81 MG TAB PO SCH (08:52)
[2018-10-08] MEDS: HEPARIN 5,000 UNIT/1 ML VIAL SC SCH ×2 (09:03→21:42)
--- NOTE | 2018-10-08 11:24 | CONS ---
Date/Time of Note Date/Time of Note DATE: 10/08/18 TIME: 11:23 Assessment/Plan Assessment/Plan Hospital Course No acute events, awake, feels good, no fevers Microbiology: Blood cultures remain negative Antimicrobials: Meropenem, s/p vancomycin Physical examination: Morbidly obese well-developed elderly man who is alert in no distress. Head atraumatic normocephalic sclera nonicteric vehicle mucosa dry neck is obese chest rise symmetrical breath sounds diminished bases. Heart: S1-S2. Abdomen obese distended bowel sounds hypoactive patient has mild tenderness on palpation. Extremities with bilateral lower extremities edema Assessment: 1. Severe sepsis, resolving 2. Acute pancreatitis 3. Acute respiratory failure, likely obesity hypoventilation syndrome 4. Left lower lobe pneumonia 5. Gallstones 6. Morbid obesity Plan: Remains stable, continue abx, f/u surgical rec-s==> so far no planned surgical intervention Result Diagram: 10/08/18 0500 10/08/18 0500 Results 24hrs Laboratory Tests Test 10/08/18 05:00 White Blood Count 14.0 H Red Blood Count 4.65 L Hemoglobin 13.5 L Hematocrit 39.9 L Mean Corpuscular Volume 85.8 Mean Corpuscular Hemoglobin 29.0 Mean Corpuscular Hemoglobin Concent 33.8 Red Cell Distribution Width 12.8 Platelet Count 229 Mean Platelet Volume 11.1 H Immature Granulocytes % 1.600 H Neutrophils % 79.0 H Lymphocytes % 9.6 L Monocytes % 6.8 Eosinophils % 2.4 Basophils % 0.6 Nucleated Red Blood Cells % 0.0 Immature Granulocytes # 0.230 H Neutrophils # 11.1 H Lymphocytes # 1.3 Monocytes # 1.0 H Eosinophils # 0.3 Basophils # 0.1 Nucleated Red Blood Cells # 0.0 Sodium Level 141 Potassium Level 3.3 L Chloride Level 104 Carbon Dioxide Level 26 Anion Gap 11 Blood Urea Nitrogen 18 Creatinine 0.67 Est Glomerular Filtrat Rate mL/min > 60 Glucose Level 104 Calcium Level 8.7 Total Bilirubin 0.2 Direct Bilirubin 0.00 Indirect Bilirubin 0.2 Aspartate Amino Transf (AST/SGOT) 42 Alanine Aminotransferase (ALT/SGPT) 41 Alkaline Phosphatase 68 Total Protein 5.9 L Albumin 3.3 Globulin 2.60 Albumin/Globulin Ratio 1.26 Lipase 326 H Consultation Date/Type/Reason Admit Date/Time Oct 02, 2018 at 19:02 Initial Consult Date 10/03/18 Type of Consult id Requesting Provider: ASHLEY NICOLE MD Exam/Review of Systems Vital Signs Vitals Vital Signs Date Temp Pulse Resp B/P (MAP) Pulse Ox O2 O2 Flow FiO2 Time Delivery Rate 10/08/18 98.4 74 18 131/74 97 11:14 (93) 10/08/18 3.0 31 02:35 10/07/18 Nasal 20:00 Cannula Intake and Output 10/07/18 10/07/18 10/08/18 1515:00 23:00 07:00 IntakeIntake Total 1050 ml 500 ml OutputOutput Total 600 ml BalanceBalance 1050 ml -100 ml Medications Medications Current Medications IV Flush (NS 3 ml) 3 ml PER PROTOCOL IV ; Start 10/02/18 at 19:30 Hydromorphone HCl (Dilaudid) 0.5 mg Q4H PRN IV SEVERE PAIN LEVEL 7-10; Start 10/02/18 at 19:30 Heparin Sodium (Porcine) (Heparin (5000 Units/1ml)) 5,000 unit Q12 SC Last administered on 10/08/18at 09:03; Admin Dose 5,000 UNIT; Start 10/02/18 at 21:00 Levalbuterol (Xopenex Neb) 1.25 mg Q4H RESP THERAPY PRN HHN wheezing Last administered on 10/02/18at 23:29; Admin Dose 1.25 MG; Start 10/02/18 at 23:30 Ipratropium [place] (Atrovent 0.02% (Neb)) 0.5 mg Q4H RESP THERAPY PRN HHN SHORTNESS OF BREATH; Start 10/02/18 at 23:30 Aripiprazole (Abilify) 5 mg DAILY PO Last administered on 10/08/18at 08:45; Adm in Dose 5 MG; Start 10/03/18 at 09:00 Aspirin (Halfprin) 81 mg DAILY PO Last administered on 10/08/18at 08:52; Admin Dose 81 MG; Start 10/03/18 at 09:00 Diphenhydramine HCl (Benadryl) 50 mg QHS PRN PO ITCHING; Start 10/03/18 at 00:30 Fluoxetine HCl (Prozac) 40 mg DAILY PO Last administered on 10/08/18 08:45; Admin Dose 40 MG; Start 10/03/18 at 09:00 Labetalol HCl (Normodyne) 300 mg DAILY PO Last administered on 10/08/18 08:47; Admin Dose 300 MG; Start 10/03/18 at 09:00 Nifedipine (Procardia Xl) 30 mg DAILY PO Last administered on 10/08/18 08:48; Admin Dose 30 MG; Start 10/03/18 at 09:00 Tamsulosin HCl (Flomax) 0.4 mg HS PO Last administered on 10/07/18 20:39; Admin Dose 0.4 MG; Start 10/03/18 at 21:00 Docusate Sodium (Colace) 200 mg BID PO Last administered on 10/08/18 08:47; Ad min Dose 200 MG; Start 10/04/18 at 01:00 Polyethylene Glycol (Miralax) 17 gm DAILY PO Last administered on 10/08/18 08:52; Admin Dose 17 GM; Start 10/04/18 at 01:00 Meropenem/Sodium Chloride 50 ml @ 100 mls/hr Q8H IVPB Last administered on 10/08/18 08:52; Admin Dose 100 MLS/HR; Start 10/04/18 at 01:00 Potassium Chloride 30 meq/ Sodium Chloride 1,015 ml @ 125 mls/hr Q8H8M IV Last administered on 10/07/18 22:09; Admin Dose 100 MLS/HR; Start 10/07/18 at 12:00 LOPEZ SALAS NP Oct 08, 2018 11:24
--- NOTE | 2018-10-08 12:14 | PN ---
Date/Time of Note Date/Time of Note DATE: 10/08/18 TIME: 12:13 Assessment/Plan VTE Prophylaxis Risk score (from Ns)>0 risk: 3 SCD applied (from [facility] [place] Yes Pharmacological prophylaxis: NA/contraindicated Pharm contraindication: surgical contra Lines/Catheters IV Catheter Type (from [facility]): Peripheral IV Urinary Cath still in place: No Assessment/Plan Hospital Course 1. Pancreatitis likely secondary to gallstones with superimposed infection Continue IV fluids Continue IV antibiotics General surgery and hepatobiliary surgery following Eventual lap afshan Pain is controlled Discuss initiation of feeding with surgery 2. Diabetes Continue regimen 3. Hypoxia secondary to fluid overload-appears to be resolved 4. History of hypertension Hold home meds Prophylaxis: SCD Result Diagram: 10/08/18 0500 10/08/18 0500 Results 24hrs Laboratory Tests Test 10/08/18 05:00 White Blood Count 14.0 H Red Blood Count 4.65 L Hemoglobin 13.5 L Hematocrit 39.9 L Mean Corpuscular Volume 85.8 Mean Corpuscular Hemoglobin 29.0 Mean Corpuscular Hemoglobin Concent 33.8 Red Cell Distribution Width 12.8 Platelet Count 229 Mean Platelet Volume 11.1 H Immature Granulocytes % 1.600 H Neutrophils % 79.0 H Lymphocytes % 9.6 L Monocytes % 6.8 Eosinophils % 2.4 Basophils % 0.6 Nucleated Red Blood Cells % 0.0 Immature Granulocytes # 0.230 H Neutrophils # 11.1 H Lymphocytes # 1.3 Monocytes # 1.0 H Eosinophils # 0.3 Basophils # 0.1 Nucleated Red Blood Cells # 0.0 Sodium Level 141 Potassium Level 3.3 L Chloride Level 104 Carbon Dioxide Level 26 Anion Gap 11 Blood Urea Nitrogen 18 Creatinine 0.67 Est Glomerular Filtrat Rate mL/min > 60 Glucose Level 104 Calcium Level 8.7 Total Bilirubin 0.2 Direct Bilirubin 0.00 Indirect Bilirubin 0.2 Aspartate Amino Transf (AST/SGOT) 42 Alanine Aminotransferase (ALT/SGPT) 41 Alkaline Phosphatase 68 Total Protein 5.9 L Albumin 3.3 Globulin 2.60 Albumin/Globulin Ratio 1.26 Lipase 326 H Subjective 24 Hr Interval Summary Constitutional: no complaints Exam/Review of Systems Vital Signs Vitals Vital Signs Date Temp Pulse Resp B/P (MAP) Pulse Ox O2 O2 Flow FiO2 Time Delivery Rate 10/08/18 98.4 74 18 131/74 97 11:14 (93) 10/08/18 Nasal 3.0 08:00 Cannula 10/08/18 31 02:35 Intake and Output 10/07/18 10/07/18 10/08/18 1515:00 23:00 07:00 IntakeIntake Total 1050 ml 500 ml OutputOutput Total 600 ml BalanceBalance 1050 ml -100 ml Exam Constitutional: alert, oriented Respiratory: clear to auscultation Cardiovascular: regular rate and rhythm Gastrointestinal: soft; No distended Musculoskeletal: nl extremities to inspection Medications Medications Current Medications IV Flush (NS 3 ml) 3 ml PER PROTOCOL IV ; Start 10/02/18 at 19:30 Hydromorphone HCl (Dilaudid) 0.5 mg Q4H PRN IV SEVERE PAIN LEVEL 7-10; Start 10/02/18 at 19:30 Heparin Sodium (Porcine) (Heparin (5000 Units/1ml)) 5,000 unit Q12 SC Last administered on 10/08/18at 09:03; Admin Dose 5,000 UNIT; Start 10/02/18 at 21:00 Levalbuterol (Xopenex Neb) 1.25 mg Q4H RESP THERAPY PRN HHN wheezing Last administered on 10/02/18at 23:29; Admin Dose 1.25 MG; Start 10/02/18 at 23:30 Ipratropium [place] (Atrovent 0.02% (Neb)) 0.5 mg Q4H RESP THERAPY PRN HHN SHORTNESS OF BREATH; Start 10/02/18 at 23:30 Aripiprazole (Abilify) 5 mg DAILY PO Last administered on 10/08/18at 08:45; Admin Dose 5 MG; Start 10/03/18 at 09:00 Aspirin (Halfprin) 81 mg DAILY PO Last administered on 10/08/18at 08:52; Admin Dose 81 MG; Start 10/03/18 at 09:00 Diphenhydramine HCl (Benadryl) 50 mg QHS PRN PO ITCHING; Start 10/03/18 at 00:30 Fluoxetine HCl (Prozac) 40 mg DAILY PO Last administered on 10/08/18at 08:45; Admin Dose 40 MG; Start 10/03/18 at 09:00 Labetalol HCl (Normodyne) 300 mg DAILY PO Last administered on 1/16/19at 08:47; Admin Dose 300 MG; Start 10/03/18 at 09:00 Nifedipine (Procardia Xl) 30 mg DAILY PO Last administered on 10/08/18 08:48; Admin Dose 30 MG; Start 10/03/18 at 09:00 Tamsulosin HCl (Flomax) 0.4 mg HS PO Last administered on 10/07/18 20:39; Admin Dose 0.4 MG; Start 10/03/18 at 21:00 Docusate Sodium (Colace) 200 mg BID PO Last administered on 10/08/18 08:47; Admin Dose 200 MG; Start 10/04/18 at 01:00 Polyethylene Glycol (Miralax) 17 gm DAILY PO Last administered on 10/08/18 08:52; Admin Dose 17 GM; Start 10/04/18 at 01:00 Meropenem/Sodium Chloride 50 ml @ 100 mls/hr Q8H IVPB Last administered on 10/08/18 08:52; Admin Dose 100 MLS/HR; Start 10/04/18 at 01:00 Potassium Chloride 30 meq/ Sodium Chloride 1,015 ml @ 125 mls/hr Q8H8M IV Last administered on 10/07/18 22:09; Admin Dose 100 MLS/HR; Start 10/07/18 at 12:00 TRIP MONTOYA Oct 08, 2018 12:14
--- NOTE | 2018-10-08 12:16 | PN ---
Date/Time of Note Date/Time of Note DATE: 10/08/18 TIME: 12:14 Assessment/Plan Lines/Catheters IV Catheter Type (from [facility]): Peripheral IV Bull in Place (from [facility]): No Assessment/Plan Chief Complaint/Hosp Course 1. Acute pancreatitis possibly secondary to gallstones versus other etiologies. Gas bubbles with suggestions of infection with gas-forming bacteria. As we are not a hepatobiliary service, patient needs hepatobiliary surgeon to be involved in case he develops pancreatic necrosis, infection, abscess, with need for debridement; Hepatobiliary on the case; +bowel function; -antibiotics> per ID/HBS -Judicious IV fluid resuscitation -Pain control -Further imaging/eventual nasojejunal feeding tube to start tube feeds/resumption of enteral nutrition vs. parenteral > per HBS>HBS follow up 2. Tiny gallstones -As above -We will likely benefit from eventual cholecystectomy 3. BMI 39 with morbid obesity -Highly encourage eventual nutritional optimization -Highly encouraged eventual exercise 4. Hypertension -Diet and medication optimization -Highly encouraged weight loss 5. Prediabetes -Nutrition optimization -Highly encouraged weight loss 6. Schizophrenia, mild per family -Psychiatric optimization 7. Dementia -Medical management 8. Leukocytosis: improving -as above 8. Respiratory distress:s/p high flow o2: improved -supportive -judicious fluids -as above Thank you. Patient seen and examined in collaboration with Dr. Jason Panda. Subjective 24 Hr Interval Summary No acute discomfort. +bowel function. No fevers, chills, sob, congested cough, cp, palpitations, mitchell, dizziness, n/v/d/dysuria. Exam/Review of Systems Vital Signs Vitals Vital Signs Date Temp Pulse Resp B/P (MAP) Pulse Ox O2 O2 Flow FiO2 Time Delivery Rate 10/08/18 98.4 74 18 131/74 97 11:14 (93) 10/08/18 Nasal 3.0 08:00 Cannula 10/08/18 31 02:35 Intake and Output 10/07/18 10/07/18 10/08/18 1515:00 23:00 07:00 IntakeIntake Total 1050 ml 500 ml OutputOutput Total 600 ml BalanceBalance 1050 ml -100 ml Exam Free Text/Dictation Constitutional: alert, oriented, NAD, obese Psych: nl mood No confusion Head: normocephalic, atraumatic Eyes: nl conjunctiva, EOMI, PERRL; No icteric ENMT: nl external ears & nose, nl lips & teeth Neck: supple, non-tender; No jvd Respiratory: normal air movement, labored breathing (Minimal-improved) No congested cough, No wheezing Cardiovascular: regular rate and rhythm No edema Gastrointestinal: distended, nontender, other (Ventral umbilical hernia); soft No rebound or guarding or rigid Genitourinary - Male: nl scrotum Musculoskeletal: nl extremities to inspection; No joint tenderness Extremities: normal pulses; No calf tenderness, No cyanosis Neurological: nl mental status, nl speech, nl strength Skin: nl turgor; No rash or lesions, No diaphoresis Lymph: nl lymph nodes Results Result Diagram: 10/08/18 0500 10/08/18 0500 LESLYE ROJAS NP Oct 08, 2018 12:16
[2018-10-08] MEDS: TAMSULOSIN (SR) 0.4 MG CAP PO SCH (21:36)
[2018-10-09] VITALS (12 sets, daily range): BP systolic 131–147; BP diastolic 79–93; PULSE 75–98; RESP 18–21
[2018-10-09] MEDS: MEROPENEM 1 GM/50ML(PMX) 50 ML IVPB SCH ×3 (01:26→16:02)
[2018-10-09] MEDS: POTASSIUM CHLORIDE 30 MEQ in SOD CHLORIDE 0.9% 1,000 ML IV SCH ×3 (01:27→16:02)
[2018-10-09] MEDS: ARIPIPRAZOLE 5 MG TAB PO SCH (08:26)
[2018-10-09] MEDS: NIFEdipine (XL) 30 MG TAB PO SCH (08:26)
[2018-10-09] MEDS: LABETALOL 100 MG TAB PO SCH (08:26)
[2018-10-09] MEDS: ASPIRIN (EC) 81 MG TAB PO SCH (08:26)
[2018-10-09] MEDS: FLUOXETINE 20 MG CAP PO SCH (08:26)
[2018-10-09] MEDS: DOCUSATE SODIUM 100 MG CAP PO SCH ×2 (08:26→21:57)
[2018-10-09] MEDS: POLYETHYLENE GLYCOL 17 GM PACKET PO SCH (08:26)
[2018-10-09] MEDS: HEPARIN 5,000 UNIT/1 ML VIAL SC SCH ×2 (08:34→22:11)
--- NOTE | 2018-10-09 10:57 | PN ---
Date/Time of Note Date/Time of Note DATE: 10/09/18 TIME: 10:53 Assessment/Plan Lines/Catheters IV Catheter Type (from [facility]): Peripheral IV Bull in Place (from [facility]): No Assessment/Plan Chief Complaint/Hosp Course 1. Acute pancreatitis possibly secondary to gallstones versus other etiologies. Gas bubbles with suggestions of infection with gas-forming bacteria. As we are not a hepatobiliary service, patient needs hepatobiliary surgeon to be involved in case he develops pancreatic necrosis, infection, abscess, with need for debridement; Hepatobiliary on the case; +bowel function; -continue antibiotics> per ID/HBS -contintue judicious IV fluid resuscitation -Pain control -Further imaging/eventual nasojejunal feeding tube to start tube feeds/resumption of enteral nutrition vs. parenteral > HBS follow up 2. Tiny gallstones -As above -We will likely benefit from eventual cholecystectomy 3. BMI 39 with morbid obesity -Highly encourage eventual nutritional optimization -Highly encouraged eventual exercise 4. Hypertension -Diet and medication optimization -Highly encouraged weight loss 5. Prediabetes -Nutrition optimization -Highly encouraged weight loss 6. Schizophrenia, mild per family -Psychiatric optimization 7. Dementia -Medical management 8. Leukocytosis: improving -as above 8. Respiratory distress:s/p high flow o2: improved -supportive -judicious fluids -as above Thank you. Patient seen and examined in collaboration with Dr. Jason Panda. Subjective 24 Hr Interval Summary Feels well. No acute pain. WBC improving. Lipase improving. No fevers, chills, sob, congested cough, cp, palpitations, mitchell, dizziness, n/v/d/dysuria. Exam/Review of Systems Vital Signs Vitals Vital Signs Date Temp Pulse Resp B/P (MAP) Pulse Ox O2 O2 Flow FiO2 Time Delivery Rate 10/09/18 Nasal 3.0 08:00 Cannula 10/09/18 98 08:00 10/09/18 98.3 20 138/93 95 07:08 (108) 10/08/18 31 02:35 Intake and Output 10/08/18 10/08/18 10/09/18 1515:00 23:00 07:00 IntakeIntake Total 50 ml 2000 ml 1265 ml OutputOutput Total 200 ml 1050 ml 725 ml BalanceBalance -150 ml 950 ml 540 ml Exam Free Text/Dictation Constitutional: alert, oriented, NAD, obese Psych: nl mood No confusion Head: normocephalic, atraumatic Eyes: nl conjunctiva, EOMI, PERRL; No icteric ENMT: nl external ears & nose, nl lips & teeth Neck: supple, non-tender; No jvd Respiratory: normal air movement, nonlabored breathing No congested cough, No wheezing Cardiovascular: regular rate and rhythm No edema Gastrointestinal: distended, nontender, other (Ventral umbilical hernia); soft No rebound or guarding or rigid Genitourinary - Male: nl scrotum Musculoskeletal: nl extremities to inspection; No joint tenderness Extremities: normal pulses; No calf tenderness, No cyanosis Neurological: nl mental status, nl speech, nl strength Skin: nl turgor; No rash or lesions, No diaphoresis Lymph: nl lymph nodes Results Result Diagram: 10/09/18 0529 10/09/18 0529 LESLYE ROJAS NP Oct 09, 2018 10:57
--- NOTE | 2018-10-09 12:05 | PN ---
Date/Time of Note Date/Time of Note DATE: 10/09/18 TIME: 12:04 Assessment/Plan VTE Prophylaxis Risk score (from Ns)>0 risk: 7 SCD applied (from [facility]): Yes Pharmacological prophylaxis: NA/contraindicated Pharm contraindication: low risk/ambulating Lines/Catheters IV Catheter Type (from [facility]): Peripheral IV Urinary Cath still in place: No Assessment/Plan Hospital Course 1. Pancreatitis likely secondary to gallstones with superimposed infection Continue IV fluids Continue IV antibiotics General surgery and hepatobiliary surgery following Eventual lap afshan Pain is controlled Patient is asymptomatic, start a clear liquid diet today 2. Diabetes Continue regimen 3. Hypoxia secondary to fluid overload-appears to be resolved 4. History of hypertension Hold home meds Prophylaxis: SCD DC planning: Start a clear liquid diet today, monitor Result Diagram: 10/09/18 0529 10/09/18 0529 Results 24hrs Laboratory Tests Test 10/09/18 05:29 White Blood Count 12.6 H Red Blood Count 4.64 L Hemoglobin 13.1 L Hematocrit 40.0 L Mean Corpuscular Volume 86.2 Mean Corpuscular Hemoglobin 28.2 L Mean Corpuscular Hemoglobin Concent 32.8 Red Cell Distribution Width 12.8 Platelet Count 236 Mean Platelet Volume 10.6 H Immature Granulocytes % 1.300 H Neutrophils % 80.3 H Lymphocytes % 8.8 L Monocytes % 6.8 Eosinophils % 2.4 Basophils % 0.4 Nucleated Red Blood Cells % 0.0 Immature Granulocytes # 0.160 H Neutrophils # 10.1 H Lymphocytes # 1.1 Monocytes # 0.9 Eosinophils # 0.3 Basophils # 0.1 Nucleated Red Blood Cells # 0.0 Sodium Level 139 Potassium Level 3.5 Chloride Level 103 Carbon Dioxide Level 25 Anion Gap 11 Blood Urea Nitrogen 15 Creatinine 0.65 Est Glomerular Filtrat Rate mL/min > 60 Glucose Level 106 Calcium Level 8.7 Total Bilirubin 0.2 Direct Bilirubin 0.00 Indirect Bilirubin 0.2 Aspartate Amino Transf (AST/SGOT) 45 Alanine Aminotransferase (ALT/SGPT) 45 Alkaline Phosphatase 69 Total Protein 6.1 Albumin 3.2 L Globulin 2.90 Albumin/Globulin Ratio 1.10 Subjective 24 Hr Interval Summary Constitutional: no complaints Exam/Review of Systems Vital Signs Vitals Vital Signs Date Temp Pulse Resp B/P (MAP) Pulse Ox O2 O2 Flow FiO2 Time Delivery Rate 10/09/18 98.2 80 21 131/79 96 11:12 (96) 10/09/18 Nasal 3.0 08:00 Cannula 10/08/18 31 02:35 Intake and Output 10/08/18 10/08/18 10/09/18 1515:00 23:00 07:00 IntakeIntake Total 50 ml 2000 ml 1265 ml OutputOutput Total 200 ml 1050 ml 725 ml BalanceBalance -150 ml 950 ml 540 ml Exam Constitutional: alert, oriented Respiratory: clear to auscultation Cardiovascular: regular rate and rhythm Gastrointestinal: soft, non-tender; No distended Musculoskeletal: nl extremities to inspection Medications Medications Current Medications IV Flush (NS 3 ml) 3 ml PER PROTOCOL IV ; Start 10/02/18 at 19:30 Hydromorphone HCl (Dilaudid) 0.5 mg Q4H PRN IV SEVERE PAIN LEVEL 7-10; Start 10/02/18 at 19:30 Heparin Sodium (Porcine) (Heparin (5000 Units/1ml)) 5,000 unit Q12 SC Last administered on 10/09/18at 08:34; Admin Dose 5,000 UNIT; Start 10/02/18 at 21:00 Levalbuterol (Xopenex Neb) 1.25 mg Q4H RESP THERAPY PRN HHN wheezing Last administered on 10/02/18at 23:29; Admin Dose 1.25 MG; Start 10/02/18 at 23:30 Ipratropium [place] (Atrovent 0.02% (Neb)) 0.5 mg Q4H RESP THERAPY PRN HHN SHORTNESS OF BREATH; Start 10/02/18 at 23:30 Aripiprazole (Abilify) 5 mg DAILY PO Last administered on 10/09/18at 08:26; Admin Dose 5 MG; Start 10/03/18 at 09:00 Aspirin (Halfprin) 81 mg DAILY PO Last administered on 10/09/18at 08:26; Admin Dose 81 MG; Start 10/03/18 at 09:00 Diphenhydramine HCl (Benadryl) 50 mg QHS PRN PO ITCHING; Start 10/03/18 at 00:30 Fluoxetine HCl (Prozac) 40 mg DAILY PO Last administered on 10/09/18at 08:26; Admin Dose 40 MG; Start 10/03/18 at 09:00 Labetalol HCl (Normodyne) 300 mg DAILY PO Last administered on 10/09/18 08:26; Admin Dose 300 MG; Start 10/03/18 at 09:00 Nifedipine (Procardia Xl) 30 mg DAILY PO Last administered on 10/09/18 08:26; Admin Dose 30 MG; Start 10/03/18 at 09:00 Tamsulosin HCl (Flomax) 0.4 mg HS PO Last administered on 10/08/18 21:36; Admin Dose 0.4 MG; Start 10/03/18 at 21:00 Docusate Sodium (Colace) 200 mg BID PO Last administered on 10/09/18 08:26; Admin Dose 200 MG; Start 10/04/18 at 01:00 Polyethylene Glycol (Miralax) 17 gm DAILY PO Last administered on 10/09/18 08:26; Admin Dose 17 GM; Start 10/04/18 at 01:00 Meropenem/Sodium Chloride 50 ml @ 100 mls/hr Q8H IVPB Last administered on 10/09/18 08:26; Admin Dose 100 MLS/HR; Start 10/04/18 at 01:00 Potassium Chloride 30 meq/ Sodium Chloride 1,015 ml @ 125 mls/hr Q8H8M IV Last administered on 10/09/18 01:27; Admin Dose 125 MLS/HR; Start 10/07/18 at 12:00 TRIP MONTOYA Oct 09, 2018 12:05
--- NOTE | 2018-10-09 13:52 | CONS ---
Date/Time of Note Date/Time of Note DATE: 10/09/18 TIME: 13:51 Assessment/Plan Assessment/Plan Hospital Course No acute events, patient is sleeping, comfortable on 2 L nasal cannula, no fevers overnight Microbiology: Blood cultures remain negative Antimicrobials: Meropenem, s/p vancomycin Physical examination: Morbidly obese well-developed elderly man who is alert in no distress. Head atraumatic normocephalic sclera nonicteric vehicle mucosa dry neck is obese chest rise symmetrical breath sounds diminished bases. Heart: S1-S2. Abdomen obese distended bowel sounds hypoactive patient has mild tenderness on palpation. Extremities with bilateral lower extremities edema Assessment: 1. Severe sepsis, resolving 2. Acute pancreatitis 3. Acute respiratory failure, likely obesity hypoventilation syndrome 4. Left lower lobe pneumonia 5. Gallstones 6. Morbid obesity Plan: Remains stable, WBC continues to decrease, continue abx, f/u surgical rec- s Result Diagram: 10/09/18 0529 10/09/18 0529 Results 24hrs Laboratory Tests Test 10/09/18 05:29 White Blood Count 12.6 H Red Blood Count 4.64 L Hemoglobin 13.1 L Hematocrit 40.0 L Mean Corpuscular Volume 86.2 Mean Corpuscular Hemoglobin 28.2 L Mean Corpuscular Hemoglobin Concent 32.8 Red Cell Distribution Width 12.8 Platelet Count 236 Mean Platelet Volume 10.6 H Immature Granulocytes % 1.300 H Neutrophils % 80.3 H Lymphocytes % 8.8 L Monocytes % 6.8 Eosinophils % 2.4 Basophils % 0.4 Nucleated Red Blood Cells % 0.0 Immature Granulocytes # 0.160 H Neutrophils # 10.1 H Lymphocytes # 1.1 Monocytes # 0.9 Eosinophils # 0.3 Basophils # 0.1 Nucleated Red Blood Cells # 0.0 Sodium Level 139 Potassium Level 3.5 Chloride Level 103 Carbon Dioxide Level 25 Anion Gap 11 Blood Urea Nitrogen 15 Creatinine 0.65 Est Glomerular Filtrat Rate mL/min > 60 Glucose Level 106 Calcium Level 8.7 Total Bilirubin 0.2 Direct Bilirubin 0.00 Indirect Bilirubin 0.2 Aspartate Amino Transf (AST/SGOT) 45 Alanine Aminotransferase (ALT/SGPT) 45 Alkaline Phosphatase 69 Total Protein 6.1 Albumin 3.2 L Globulin 2.90 Albumin/Globulin Ratio 1.10 Consultation Date/Type/Reason Admit Date/Time Oct 02, 2018 at 19:02 Initial Consult Date 1/11/19 Type of Consult id Requesting Provider: ASHLEY NICOLE MD Exam/Review of Systems Vital Signs Vitals Vital Signs Date Temp Pulse Resp B/P (MAP) Pulse Ox O2 O2 Flow FiO2 Time Delivery Rate 10/09/18 81 12:00 10/09/18 98.2 21 131/79 96 11:12 (96) 10/09/18 Nasal 3.0 08:00 Cannula 10/08/18 31 02:35 Intake and Output 10/08/18 10/08/18 10/09/18 1515:00 23:00 07:00 IntakeIntake Total 50 ml 2000 ml 1265 ml OutputOutput Total 200 ml 1050 ml 725 ml BalanceBalance -150 ml 950 ml 540 ml Medications Medications Current Medications IV Flush (NS 3 ml) 3 ml PER PROTOCOL IV ; Start 10/02/18 at 19:30 Hydromorphone HCl (Dilaudid) 0.5 mg Q4H PRN IV SEVERE PAIN LEVEL 7-10; Start 10/02/18 at 19:30 Heparin Sodium (Porcine) (Heparin (5000 Units/1ml)) 5,000 unit Q12 SC Last administered on 10/09/18at 08:34; Admin Dose 5,000 UNIT; Start 10/02/18 at 21:00 Levalbuterol (Xopenex Neb) 1.25 mg Q4H RESP THERAPY PRN HHN wheezing Last administered on 10/02/18at 23:29; Admin Dose 1.25 MG; Start 10/02/18 at 23:30 Ipratropium [place] (Atrovent 0.02% (Neb)) 0.5 mg Q4H RESP THERAPY PRN HHN SHORTNESS OF BREATH; Start 10/02/18 at 23:30 Aripiprazole (Abilify) 5 mg DAILY PO Last administered on 10/09/18at 08:26; Admin Dose 5 MG; Start 10/03/18 at 09:00 Aspirin (Halfprin) 81 mg DAILY PO Last administered on 10/09/18at 08:26; Admin Dose 81 MG; Start 10/03/18 at 09:00 Diphenhydramine HCl (Benadryl) 50 mg QHS PRN PO ITCHING; Start 10/03/18 at 00:30 Fluoxetine HCl (Prozac) 40 mg DAILY PO Last administered on 10/09/18 08:26; Admin Dose 40 MG; Start 10/03/18 at 09:00 Labetalol HCl (Normodyne) 300 mg DAILY PO Last administered on 10/09/18 08:26; Admin Dose 300 MG; Start 10/03/18 at 09:00 Nifedipine (Procardia Xl) 30 mg DAILY PO Last administered on 10/09/18 08:26; Admin Dose 30 MG; Start 10/03/18 at 09:00 Tamsulosin HCl (Flomax) 0.4 mg HS PO Last administered on 10/08/18 21:36; Admin Dose 0.4 MG; Start 10/03/18 at 21:00 Docusate Sodium (Colace) 200 mg BID PO Last administered on 10/09/18 08:26; Admin Dose 200 MG; Start 10/04/18 at 01:00 Polyethylene Glycol (Miralax) 17 gm DAILY PO Last administered on 10/09/18 08:26; Admin Dose 17 GM; Start 10/04/18 at 01:00 Meropenem/Sodium Chloride 50 ml @ 100 mls/hr Q8H IVPB Last administered on 10/09/18 08:26; Admin Dose 100 MLS/HR; Start 10/04/18 at 01:00 Potassium Chloride 30 meq/ Sodium Chloride 1,015 ml @ 125 mls/hr Q8H8M IV Last administered on 10/09/18 01:27; Admin Dose 125 MLS/HR; Start 10/07/18 at 12:00 LOPEZ SALAS NP Oct 09, 2018 13:52
[2018-10-09] MEDS: TAMSULOSIN (SR) 0.4 MG CAP PO SCH (21:57)
[2018-10-10] VITALS (11 sets, daily range): BP systolic 115–142; BP diastolic 71–91; PULSE 73–107; RESP 17–20
[2018-10-10] MEDS: MEROPENEM 1 GM/50ML(PMX) 50 ML IVPB SCH ×3 (01:00→16:21)
[2018-10-10] MEDS: POTASSIUM CHLORIDE 30 MEQ in SOD CHLORIDE 0.9% 1,000 ML IV SCH ×3 (01:14→16:21)
[2018-10-10] MEDS: POLYETHYLENE GLYCOL 17 GM PACKET PO SCH (08:20)
[2018-10-10] MEDS: ASPIRIN (EC) 81 MG TAB PO SCH (08:20)
[2018-10-10] MEDS: ARIPIPRAZOLE 5 MG TAB PO SCH (08:20)
[2018-10-10] MEDS: DOCUSATE SODIUM 100 MG CAP PO SCH ×2 (08:20→20:05)
[2018-10-10] MEDS: FLUOXETINE 20 MG CAP PO SCH (08:21)
[2018-10-10] MEDS: NIFEdipine (XL) 30 MG TAB PO SCH (08:21)
[2018-10-10] MEDS: LABETALOL 100 MG TAB PO SCH (08:21)
[2018-10-10] MEDS: HEPARIN 5,000 UNIT/1 ML VIAL SC SCH ×2 (08:27→20:15)
--- NOTE | 2018-10-10 09:44 | PN ---
Date/Time of Note Date/Time of Note DATE: 10/10/18 TIME: 09:43 Assessment/Plan Lines/Catheters IV Catheter Type (from [facility]): Peripheral IV Bull in Place (from [facility]): No Assessment/Plan Chief Complaint/Hosp Course 1. Acute pancreatitis possibly secondary to gallstones versus other etiologies. Gas bubbles with suggestions of infection with gas-forming bacteria. As we are not a hepatobiliary service, patient needs hepatobiliary surgeon to be involved in case he develops pancreatic necrosis, infection, abscess, with need for debridement; Hepatobiliary on the case; +bowel function; started on clears; lipase normalized -antibiotics per ID/HBS -contintue judicious IV fluid resuscitation -Pain control prn -HBS follow up 2. Tiny gallstones -As above -We will likely benefit from eventual cholecystectomy 3. BMI 39 with morbid obesity -Highly encourage eventual nutritional optimization -Highly encouraged eventual exercise 4. Hypertension -Diet and medication optimization -Highly encouraged weight loss 5. Prediabetes -Nutrition optimization -Highly encouraged weight loss 6. Schizophrenia, mild per family -Psychiatric optimization 7. Dementia -Medical management 8. Leukocytosis: much improved -as above 8. Respiratory distress:s/p high flow o2: improved -supportive -judicious fluids -as above Thank you. Patient seen and examined in collaboration with Dr. Jason Panda. Subjective 24 Hr Interval Summary No overnight events. Started on clears yesterday. Lipase improving. No fevers, chills, sob, congested cough, cp, palpitations, mitchell, dizziness, n/v/d/dysuria. Exam/Review of Systems Vital Signs Vitals Vital Signs Date Temp Pulse Resp B/P (MAP) Pulse Ox O2 O2 Flow FiO2 Time Delivery Rate 10/10/18 107 08:00 10/10/18 97.8 20 138/91 95 Nasal 07:44 (107) Cannula 10/10/18 3.0 07:35 10/08/18 31 02:35 Intake and Output 10/09/18 10/09/18 10/10/18 1515:00 23:00 07:00 IntakeIntake Total 1300 ml 400 ml OutputOutput Total 700 ml 550 ml BalanceBalance 600 ml -150 ml Exam Free Text/Dictation Constitutional: alert, oriented, NAD, obese Psych: nl mood No confusion Head: normocephalic, atraumatic Eyes: nl conjunctiva, EOMI, PERRL; No icteric ENMT: nl external ears & nose, nl lips & teeth Neck: supple, non-tender; No jvd Respiratory: normal air movement, nonlabored breathing No congested cough, No wheezing Cardiovascular: regular rate and rhythm No edema Gastrointestinal: distended, nontender, other (Ventral umbilical hernia); soft No rebound or guarding or rigid Genitourinary - Male: nl scrotum Musculoskeletal: nl extremities to inspection; No joint tenderness Extremities: normal pulses; No calf tenderness, No cyanosis Neurological: nl mental status, nl speech, nl strength Skin: nl turgor; No rash or lesions, No diaphoresis Lymph: nl lymph nodes Results Result Diagram: 10/10/18 0454 10/10/18 0454 LESLYE ROJAS NP Oct 10, 2018 09:44
--- NOTE | 2018-10-10 14:02 | PN ---
Date/Time of Note Date/Time of Note DATE: 10/10/18 TIME: 14:00 Assessment/Plan VTE Prophylaxis Risk score (from Ns)>0 risk: 5 SCD applied (from [facility] [place]): Yes Pharmacological prophylaxis: NA/contraindicated Pharm contraindication: other Lines/Catheters IV Catheter Type (from [facility]): Peripheral IV Urinary Cath still in place: No Assessment/Plan Hospital Course 1. Pancreatitis likely secondary to gallstones with superimposed infection Continue IV fluids Continue IV antibiotics General surgery and hepatobiliary surgery following Eventual lap afshan Pain is controlled Patient is tolerating a clear liquid diet Lipase has normalized 2. Diabetes Continue regimen 3. Hypoxia secondary to fluid overload-appears to be resolved 4. History of hypertension Hold home meds Prophylaxis: SCD DC planning: Advance diet slowly Result Diagram: 10/10/1845310/10/184 Results 24hrs Laboratory Tests Test 10/10/18 04:54 White Blood Count 11.4 H Red Blood Count 4.43 L Hemoglobin 12.9 L Hematocrit 38.2 L Mean Corpuscular Volume 86.2 Mean Corpuscular Hemoglobin 29.1 Mean Corpuscular Hemoglobin Concent 33.8 Red Cell Distribution Width 12.9 Platelet Count 231 Mean Platelet Volume 10.8 H Immature Granulocytes % 1.200 H Neutrophils % 78.3 H Lymphocytes % 10.1 L Monocytes % 7.1 Eosinophils % 2.9 Basophils % 0.4 Nucleated Red Blood Cells % 0.0 Immature Granulocytes # 0.140 H Neutrophils # 8.9 H Lymphocytes # 1.2 Monocytes # 0.8 Eosinophils # 0.3 Basophils # 0.0 Nucleated Red Blood Cells # 0.0 Sodium Level 140 Potassium Level 3.5 Chloride Level 101 Carbon Dioxide Level 29 Anion Gap 10 Blood Urea Nitrogen 14 Creatinine 0.70 Est Glomerular Filtrat Rate mL/min > 60 Glucose Level 122 Calcium Level 8.6 Total Bilirubin 0.1 L Direct Bilirubin 0.00 Indirect Bilirubin 0.1 Aspartate Amino Transf (AST/SGOT) 46 Alanine Aminotransferase (ALT/SGPT) 41 Alkaline Phosphatase 68 Total Protein 5.9 L Albumin 3.2 L Globulin 2.70 Albumin/Globulin Ratio 1.18 Lipase 288 Subjective 24 Hr Interval Summary Constitutional: no complaints Exam/Review of Systems Vital Signs Vitals Vital Signs Date Temp Pulse Resp B/P (MAP) Pulse Ox O2 O2 Flow FiO2 Time Delivery Rate 10/10/18 76 12:00 10/10/18 97.9 19 121/84 96 Nasal 11:34 (96) Cannula 10/10/18 2.0 10:00 10/08/18 31 02:35 Intake and Output 10/09/18 10/09/18 10/10/18 1515:00 23:00 07:00 IntakeIntake Total 1300 ml 400 ml OutputOutput Total 700 ml 550 ml BalanceBalance 600 ml -150 ml Exam Constitutional: alert, oriented Respiratory: clear to auscultation Cardiovascular: regular rate and rhythm Gastrointestinal: soft; No distended Musculoskeletal: nl extremities to inspection Medications Medications Current Medications IV Flush (NS 3 ml) 3 ml PER PROTOCOL IV ; Start 10/02/18 at 19:30 Hydromorphone HCl (Dilaudid) 0.5 mg Q4H PRN IV SEVERE PAIN LEVEL 7-10; Start 10/02/18 at 19:30 Heparin Sodium (Porcine) (Heparin (5000 Units/1ml)) 5,000 unit Q12 SC Last administered on 10/10/18at 08:27; Admin Dose 5,000 UNIT; Start 10/02/18 at 21:00 Levalbuterol (Xopenex Neb) 1.25 mg Q4H RESP THERAPY PRN HHN wheezing Last administered on 10/02/18at 23:29; Admin Dose 1.25 MG; Start 10/02/18 at 23:30 Ipratropium [place] (Atrovent 0.02% (Neb)) 0.5 mg Q4H RESP THERAPY PRN HHN SHORTNESS OF BREATH; Start 10/02/18 at 23:30 Aripiprazole (Abilify) 5 mg DAILY PO Last administered on 10/10/18at 08:20; Admin Dose 5 MG; Start 10/03/18 at 09:00 Aspirin (Halfprin) 81 mg DAILY PO Last administered on 10/10/18at 08:20; Admin Dose 81 MG; Start 10/03/18 at 09:00 Diphenhydramine HCl (Benadryl) 50 mg QHS PRN PO ITCHING; Start 10/03/18 at 00:30 Fluoxetine HCl (Prozac) 40 mg DAILY PO Last administered on 10/10/18at 08:21; Admin Dose 40 MG; Start 10/03/18 at 09:00 Labetalol HCl (Normodyne) 300 mg DAILY PO Last administered on 10/10/18 08:21; Admin Dose 300 MG; Start 10/03/18 at 09:00 Nifedipine (Procardia Xl) 30 mg DAILY PO Last administered on 10/10/18 08:21; Admin Dose 30 MG; Start 10/03/18 at 09:00 Tamsulosin HCl (Flomax) 0.4 mg HS PO Last administered on 10/09/18 21:57; Admin Dose 0.4 MG; Start 10/03/18 at 21:00 Docusate Sodium (Colace) 200 mg BID PO Last administered on 10/10/18 08:20; Admin Dose 200 MG; Start 10/04/18 at 01:00 Polyethylene Glycol (Miralax) 17 gm DAILY PO Last administered on 10/10/18 08:20; Admin Dose 17 GM; Start 10/04/18 at 01:00 Meropenem/Sodium Chloride 50 ml @ 100 mls/hr Q8H IVPB Last administered on 10/10/18 10:06; Admin Dose 100 MLS/HR; Start 10/04/18 at 01:00 Potassium Chloride 30 meq/ Sodium Chloride 1,015 ml @ 125 mls/hr Q8H8M IV Last administered on 10/10/18 01:14; Admin Dose 125 MLS/HR; Start 10/07/18 at 12:00 TRIP MONTOYA Oct 10, 2018 14:02
--- NOTE | 2018-10-10 15:31 | CONS ---
Date/Time of Note Date/Time of Note DATE: 10/10/18 TIME: 15:29 Assessment/Plan Assessment/Plan Hospital Course No acute events, patient looks comfortable, no fevers overnight, he was started on clear liquid diet Microbiology: Blood cultures remain negative Antimicrobials: Meropenem, s/p vancomycin Physical examination: Morbidly obese well-developed elderly man who is alert in no distress. Head atraumatic normocephalic sclera nonicteric vehicle mucosa dry neck is obese chest rise symmetrical breath sounds diminished bases. Heart: S1-S2. Abdomen obese distended bowel sounds hypoactive patient has mild tenderness on palpation. Extremities with bilateral lower extremities edema Assessment: 1. Severe sepsis, resolving 2. Acute pancreatitis 3. Acute respiratory failure, likely obesity hypoventilation syndrome 4. Left lower lobe pneumonia 5. Gallstones 6. Morbid obesity Plan: Remains stable, WBC continues to decrease, continue abx, f/u surgical rec- s Result Diagram: 10/10/18 0454 10/10/18 0454 Results 24hrs Laboratory Tests Test 10/10/18 04:54 White Blood Count 11.4 H Red Blood Count 4.43 L Hemoglobin 12.9 L Hematocrit 38.2 L Mean Corpuscular Volume 86.2 Mean Corpuscular Hemoglobin 29.1 Mean Corpuscular Hemoglobin Concent 33.8 Red Cell Distribution Width 12.9 Platelet Count 231 Mean Platelet Volume 10.8 H Immature Granulocytes % 1.200 H Neutrophils % 78.3 H Lymphocytes % 10.1 L Monocytes % 7.1 Eosinophils % 2.9 Basophils % 0.4 Nucleated Red Blood Cells % 0.0 Immature Granulocytes # 0.140 H Neutrophils # 8.9 H Lymphocytes # 1.2 Monocytes # 0.8 Eosinophils # 0.3 Basophils # 0.0 Nucleated Red Blood Cells # 0.0 Sodium Level 140 Potassium Level 3.5 Chloride Level 101 Carbon Dioxide Level 29 Anion Gap 10 Blood Urea Nitrogen 14 Creatinine 0.70 Est Glomerular Filtrat Rate mL/min > 60 Glucose Level 122 Calcium Level 8.6 Total Bilirubin 0.1 L Direct Bilirubin 0.00 Indirect Bilirubin 0.1 Aspartate Amino Transf (AST/SGOT) 46 Alanine Aminotransferase (ALT/SGPT) 41 Alkaline Phosphatase 68 Total Protein 5.9 L Albumin 3.2 L Globulin 2.70 Albumin/Globulin Ratio 1.18 Lipase 288 Consultation Date/Type/Reason Admit Date/Time Oct 02, 2018 at 19:02 Initial Consult Date 10/03/18 Type of Consult id Requesting Provider: ASHLEY NICOLE MD Exam/Review of Systems Vital Signs Vitals Vital Signs Date Temp Pulse Resp B/P (MAP) Pulse Ox O2 O2 Flow FiO2 Time Delivery Rate 10/10/18 76 12:00 10/10/18 97.9 19 121/84 96 Nasal 11:34 (96) Cannula 10/10/18 2.0 10:00 10/08/18 31 02:35 Intake and Output 10/09/18 10/09/18 10/10/18 1515:00 23:00 07:00 IntakeIntake Total 1300 ml 400 ml OutputOutput Total 700 ml 550 ml BalanceBalance 600 ml -150 ml Medications Medications Current Medications IV Flush (NS 3 ml) 3 ml PER PROTOCOL IV ; Start 10/02/18 at 19:30 Hydromorphone HCl (Dilaudid) 0.5 mg Q4H PRN IV SEVERE PAIN LEVEL 7-10; Start 10/02/18 at 19:30 Heparin Sodium (Porcine) (Heparin (5000 Units/1ml)) 5,000 unit Q12 SC Last administered on 10/10/18at 08:27; Admin Dose 5,000 UNIT; Start 10/02/18 at 21:00 Levalbuterol (Xopenex Neb) 1.25 mg Q4H RESP THERAPY PRN HHN wheezing Last administered on 10/02/18at 23:29; Admin Dose 1.25 MG; Start 10/02/18 at 23:30 Ipratropium [place] (Atrovent 0.02% (Neb)) 0.5 mg Q4H RESP THERAPY PRN HHN SHORTNESS OF BREATH; Start 10/02/18 at 23:30 Aripiprazole (Abilify) 5 mg DAILY PO Last administered on 10/10/18at 08:20; Admin Dose 5 MG; Start 10/03/18 at 09:00 Aspirin (Halfprin) 81 mg DAILY PO Last administered on 10/10/18at 08:20; Admin Dose 81 MG; Start 10/03/18 at 09:00 Diphenhydramine HCl (Benadryl) 50 mg QHS PRN PO ITCHING; Start 10/03/18 at 00:3 0 Fluoxetine HCl (Prozac) 40 mg DAILY PO Last administered on 10/10/18 08:21; Admin Dose 40 MG; Start 10/03/18 at 09:00 Labetalol HCl (Normodyne) 300 mg DAILY PO Last administered on 10/10/18 08:21; Admin Dose 300 MG; Start 10/03/18 at 09:00 Nifedipine (Procardia Xl) 30 mg DAILY PO Last administered on 10/10/18 08:21; Admin Dose 30 MG; Start 10/03/18 at 09:00 Tamsulosin HCl (Flomax) 0.4 mg HS PO Last administered on 10/09/18 21:57; Admin Dose 0.4 MG; Start 10/03/18 at 21:00 Docusate Sodium (Colace) 200 mg BID PO Last administered on 10/10/18 08:20; Admin Dose 200 MG; Start 10/04/18 at 01:00 Polyethylene Glycol (Miralax) 17 gm DAILY PO Last administered on 10/10/18 08:20; Admin Dose 17 GM; Start 10/04/18 at 01:00 Meropenem/Sodium Chloride 50 ml @ 100 mls/hr Q8H IVPB Last administered on 10/10/18 10:06; Admin Dose 100 MLS/HR; Start 10/04/18 at 01:00 Potassium Chloride 30 meq/ Sodium Chloride 1,015 ml @ 125 mls/hr Q8H8M IV Last administered on 10/10/18 01:14; Admin Dose 125 MLS/HR; Start 10/07/18 at 12:00 LPOEZ SALAS NP Oct 10, 2018 15:31
[2018-10-10] MEDS: TAMSULOSIN (SR) 0.4 MG CAP PO SCH (20:04)
[2018-10-11] VITALS (10 sets, daily range): BP systolic 85–139; BP diastolic 73–89; PULSE 22–90; RESP 18–20
[2018-10-11] MEDS: MEROPENEM 1 GM/50ML(PMX) 50 ML IVPB SCH ×3 (01:18→17:54)
[2018-10-11] MEDS: POTASSIUM CHLORIDE 30 MEQ in SOD CHLORIDE 0.9% 1,000 ML IV SCH ×3 (02:24→17:52)
[2018-10-11] MEDS: ARIPIPRAZOLE 5 MG TAB PO SCH (08:57)
[2018-10-11] MEDS: DOCUSATE SODIUM 100 MG CAP PO SCH ×2 (08:58→20:46)
[2018-10-11] MEDS: ASPIRIN (EC) 81 MG TAB PO SCH (08:58)
[2018-10-11] MEDS: POLYETHYLENE GLYCOL 17 GM PACKET PO SCH (08:58)
[2018-10-11] MEDS: LABETALOL 100 MG TAB PO SCH (08:58)
[2018-10-11] MEDS: FLUOXETINE 20 MG CAP PO SCH (08:59)
[2018-10-11] MEDS: NIFEdipine (XL) 30 MG TAB PO SCH (08:59)
[2018-10-11] MEDS: HEPARIN 5,000 UNIT/1 ML VIAL SC SCH ×2 (09:15→20:51)
--- NOTE | 2018-10-11 11:28 | PN ---
Date/Time of Note Date/Time of Note DATE: 10/11/18 TIME: 11:24 Assessment/Plan VTE Prophylaxis Risk score (from Ns)>0 risk: 7 [place]CD [place] [facility] [place] Pharmacological prophylaxis: NA/contraindicated Pharm contraindication: other Lines/Catheters IV C[facility]ter Type (from [facility]): Peripheral IV Urinary Cath still in place: No Assessment/Plan Hospital Course 1. Pancreatitis likely secondary to gallstones with superimposed infection Continue IV fluids Continue IV antibiotics General surgery and hepatobiliary surgery following Eventual lap afshan Pain is controlled Patient is tolerating a clear liquid diet, advance to a soft diet Lipase has normalized 2. Diabetes Continue regimen 3. Hypoxia secondary to fluid overload-appears to be resolved 4. History of hypertension Hold home meds 5. Super morbid obesity Dietary consultation 6. Debility secondary to obesity Patient was walking only minimally at baseline and now requires assistance for ambulation rn field case manager to arrange for nursing placement Continue PT Prophylaxis: SCD DC planning: Advance diet slowly, anticipate DC to a senior living facility in the coming days Result Diagram: 10/11/18 0504 10/11/18 0504 Results 24hrs Laboratory Tests Test 10/11/18 05:04 White Blood Count 9.0 # Red Blood Count 4.58 L Hemoglobin 12.9 L Hematocrit 40.0 L Mean Corpuscular Volume 87.3 Mean Corpuscular Hemoglobin 28.2 L Mean Corpuscular Hemoglobin Concent 32.3 Red Cell Distribution Width 13.0 Platelet Count 244 Mean Platelet Volume 10.9 H Immature Granulocytes % 1.000 H Neutrophils % 75.0 Lymphocytes % 13.2 L Monocytes % 7.7 Eosinophils % 2.9 Basophils % 0.2 Nucleated Red Blood Cells % 0.0 Immature Granulocytes # 0.090 H Neutrophils # 6.8 Lymphocytes # 1.2 Monocytes # 0.7 Eosinophils # 0.3 Basophils # 0.0 Nucleated Red Blood Cells # 0.0 Sodium Level 141 Potassium Level 3.8 Chloride Level 102 Carbon Dioxide Level 31 Anion Gap 8 Blood Urea Nitrogen 13 Creatinine 0.72 Est Glomerular Filtrat Rate mL/min > 60 Glucose Level 124 Calcium Level 8.7 Total Bilirubin 0.0 L Direct Bilirubin 0.00 Indirect Bilirubin 0.0 Aspartate Amino Transf (AST/SGOT) 46 Alanine Aminotransferase (ALT/SGPT) 52 Alkaline Phosphatase 63 Total Protein 5.9 L Albumin 3.0 L Globulin 2.90 Albumin/Globulin Ratio 1.03 Lipase 294 Subjective 24 Hr Interval Summary Constitutional: no complaints Exam/Review of Systems Vital Signs Vitals Vital Signs Date Temp Pulse Resp B/P (MAP) Pulse Ox O2 O2 Flow FiO2 Time Delivery Rate 10/11/18 Nasal 3.0 08:28 Cannula 10/11/18 82 08:00 10/11/18 99.0 18 85/ 95 07:41 10/08/18 31 02:35 Intake and Output 10/10/18 10/10/18 10/11/18 1515:00 23:00 07:00 IntakeIntake Total 720 ml 500 ml OutputOutput Total 450 ml 1000 ml BalanceBalance 270 ml -500 ml Exam Constitutional: alert Respiratory: clear to auscultation Cardiovascular: regular rate and rhythm Gastrointestinal: soft, non-tender; No distended Musculoskeletal: nl extremities to inspection Medications Medications Current Medications IV Flush (NS 3 ml) 3 ml PER PROTOCOL IV ; Start 10/02/18 at 19:30 Hydromorphone HCl (Dilaudid) 0.5 mg Q4H PRN IV SEVERE PAIN LEVEL 7-10; Start 10/02/18 at 19:30 Heparin Sodium (Porcine) (Heparin (5000 Units/1ml)) 5,000 unit Q12 SC Last administered on 10/11/18at 09:15; Admin Dose 5,000 UNIT; Start 10/02/18 at 21:00 Levalbuterol (Xopenex Neb) 1.25 mg Q4H RESP THERAPY PRN HHN wheezing Last administered on 10/02/18at 23:29; Admin Dose 1.25 MG; Start 10/02/18 at 23:30 Ipratropium [place] (Atrovent 0.02% (Neb)) 0.5 mg Q4H RESP THERAPY PRN HHN SHORTNESS OF BREATH; Start 10/02/18 at 23:30 Aripiprazole (Abilify) 5 mg DAILY PO Last administered on 10/11/18at 08:57; Admin Dose 5 MG; Start 10/03/18 at 09:00 Aspirin (Halfprin) 81 mg DAILY PO Last administered on 10/11/18at 08:58; Admin Dose 81 MG; Start 10/03/18 at 09:00 Diphenhydramine HCl (Benadryl) 50 mg QHS PRN PO ITCHING; Start 10/03/18 at 00:30 Fluoxetine HCl (Prozac) 40 mg DAILY PO Last administered on 10/11/18 08:59; Admin Dose 40 MG; Start 10/03/18 at 09:00 Labetalol HCl (Normodyne) 300 mg DAILY PO Last administered on 10/11/18 08:58; Admin Dose 300 MG; Start 10/03/18 at 09:00 Nifedipine (Procardia Xl) 30 mg DAILY PO Last administered on 10/11/18 08:59; Admin Dose 30 MG; Start 10/03/18 at 09:00 Tamsulosin HCl (Flomax) 0.4 mg HS PO Last administered on 10/10/18 20:04; Admin Dose 0.4 MG; Start 10/03/18 at 21:00 Docusate Sodium (Colace) 200 mg BID PO Last administered on 10/11/18 08:58; Admin Dose 200 MG; Start 10/04/18 at 01:00 Polyethylene Glycol (Miralax) 17 gm DAILY PO Last administered on 10/11/18 08:58; Admin Dose 17 GM; Start 10/04/18 at 01:00 Meropenem/Sodium Chloride 50 ml @ 100 mls/hr Q8H IVPB Last administered on 10/11/18 08:57; Admin Dose 100 MLS/HR; Start 10/04/18 at 01:00 Potassium Chloride 30 meq/ Sodium Chloride 1,015 ml @ 125 mls/hr Q8H8M IV Last administered on 10/11/18 02:24; Admin Dose 125 MLS/HR; Start 10/07/18 at 12:00 TRIP MONTOYA Oct 11, 2018 11:28
--- NOTE | 2018-10-11 12:43 | CONS ---
Date/Time of Note Date/Time of Note DATE: 10/11/18 TIME: 12:43 Assessment/Plan Assessment/Plan Hospital Course ID PROGRESS NOTE CURRENT ABX: DAY # 10 => Merrem s/p Vanco 10/11/18 0504 10/11/18 0504 24H INTERVAL SUMMARY * Clinically continues to improve = no fevers, WBC normalized today - per notes started on clear liquids * Obese M, currently napping in NAD, VSS - Supplemental O2 via NC, awakens, no complaints MICRO * 10/01/18 BCx(-) PHYSICAL EXAMINATION: GENERAL: Afebrile, VSS, morbid obese HEENT: AT, NC, anicteric NECK: Supple, trach midline CHEST: Equal chest rise bilaterally, without dyspnea on observation HEART: Pulse RRR ABDOMEN: Soft / NT EXTREMITIES: Warm, dry SKIN: No rash, no diaphoresis ID ASSESSMENT 63 yo M admit with: 1. Severe sepsis, resolving 2. Acute pancreatitis => Seen by Hepatobiliary Service who recommended IV ABX * Findings of acute pancreatitis on non-contrast CT scan with some air bubbles that were concerning for possible pancreatic necrosis. 3. Acute respiratory failure, likely obesity hypoventilation syndrome 4. Left lower lobe pneumonia 5. Gallstones 6. Morbid obesity ABX ALLERGIES: NKDA INVASIVES: PIV CURRENT ABX: DAY # 10 => Merrem s/p Vanco ID RECOMMENDATIONS/PLAN: Continue current ABX - WBC normalized today D/W Dr. Harper options are: * A) DC ABX tomorrow if Hepatobiliary Surgeon concurs and observe * B) Anticipate 14 day course of ABX then DC ABX and re-assess OFF ABX . Result Diagram: 10/11/18 0504 10/11/18 0504 Results 24hrs Laboratory Tests Test 10/11/18 05:04 White Blood Count 9.0 # Red Blood Count 4.58 L Hemoglobin 12.9 L Hematocrit 40.0 L Mean Corpuscular Volume 87.3 Mean Corpuscular Hemoglobin 28.2 L Mean Corpuscular Hemoglobin Concent 32.3 Red Cell Distribution Width 13.0 Platelet Count 244 Mean Platelet Volume 10.9 H Immature Granulocytes % 1.000 H Neutrophils % 75.0 Lymphocytes % 13.2 L Monocytes % 7.7 Eosinophils % 2.9 Basophils % 0.2 Nucleated Red Blood Cells % 0.0 Immature Granulocytes # 0.090 H Neutrophils # 6.8 Lymphocytes # 1.2 Monocytes # 0.7 Eosinophils # 0.3 Basophils # 0.0 Nucleated Red Blood Cells # 0.0 Sodium Level 141 Potassium Level 3.8 Chloride Level 102 Carbon Dioxide Level 31 Anion Gap 8 Blood Urea Nitrogen 13 Creatinine 0.72 Est Glomerular Filtrat Rate mL/min > 60 Glucose Level 124 Calcium Level 8.7 Total Bilirubin 0.0 L Direct Bilirubin 0.00 Indirect Bilirubin 0.0 Aspartate Amino Transf (AST/SGOT) 46 Alanine Aminotransferase (ALT/SGPT) 52 Alkaline Phosphatase 63 Total Protein 5.9 L Albumin 3.0 L Globulin 2.90 Albumin/Globulin Ratio 1.03 Lipase 294 Consultation Date/Type/Reason Admit Date/Time Oct 02, 2018 at 19:02 Initial Consult Date 10/03/18 Requesting Provider: ASHLEY NICOLE MD Exam/Review of Systems Vital Signs Vitals Vital Signs Date Temp Pulse Resp B/P (MAP) Pulse Ox O2 O2 Flow FiO2 Time Delivery Rate 10/11/18 77 12:00 10/11/18 98.8 19 118/77 98 11:30 (91) 10/11/18 Nasal 3.0 08:28 Cannula 10/08/18 31 02:35 Intake and Output 10/10/18 10/10/18 10/11/18 1515:00 23:00 07:00 IntakeIntake Total 720 ml 500 ml OutputOutput Total 450 ml 1000 ml BalanceBalance 270 ml -500 ml Medications Medications Current Medications IV Flush (NS 3 ml) 3 ml PER PROTOCOL IV ; Start 10/02/18 at 19:30 Hydromorphone HCl (Dilaudid) 0.5 mg Q4H PRN IV SEVERE PAIN LEVEL 7-10; Start 10/02/18 at 19:30 Heparin Sodium (Porcine) (Heparin (5000 Units/1ml)) 5,000 unit Q12 SC Last administered on 10/11/18at 09:15; Admin Dose 5,000 UNIT; Start 10/02/18 at 21:00 Levalbuterol (Xopenex Neb) 1.25 mg Q4H RESP THERAPY PRN HHN wheezing Last administered on 10/02/18at 23:29; Admin Dose 1.25 MG; Start 10/02/18 at 23:30 Ipratropium [place] (Atrovent 0.02% (Neb)) 0.5 mg Q4H RESP THERAPY PRN HHN SHORTNESS OF BREATH; Start 10/02/18 at 23:30 Aripiprazole (Abilify) 5 mg DAILY PO Last administered on 10/11/18 08:57; Admin Dose 5 MG; Start 10/03/18 at 09:00 Aspirin (Halfprin) 81 mg DAILY PO Last administered on 10/11/18 08:58; Admin Dose 81 MG; Start 10/03/18 at 09:00 Diphenhydramine HCl (Benadryl) 50 mg QHS PRN PO ITCHING; Start 10/03/18 at 00:30 Fluoxetine HCl (Prozac) 40 mg DAILY PO Last administered on 10/11/18 08:59; Admin Dose 40 MG; Start 10/03/18 at 09:00 Labetalol HCl (Normodyne) 300 mg DAILY PO Last administered on 10/11/18 08:58; Admin Dose 300 MG; Start 10/03/18 at 09:00 Nifedipine (Procardia Xl) 30 mg DAILY PO Last administered on 10/11/18 08:59; Admin Dose 30 MG; Start 10/03/18 at 09:00 Tamsulosin HCl (Flomax) 0.4 mg HS PO Last administered on 10/10/18 20:04; Admin Dose 0.4 MG; Start 10/03/18 at 21:00 Docusate Sodium (Colace) 200 mg BID PO Last administered on 10/11/18 08:58; Admin Dose 200 MG; Start 10/04/18 at 01:00 Polyethylene Glycol (Miralax) 17 gm DAILY PO Last administered on 10/11/18 08:58; Admin Dose 17 GM; Start 10/04/18 at 01:00 Meropenem/Sodium Chloride 50 ml @ 100 mls/hr Q8H IVPB Last administered on 10/11/18 08:57; Admin Dose 100 MLS/HR; Start 10/04/18 at 01:00 Potassium Chloride 30 meq/ Sodium Chloride 1,015 ml @ 125 mls/hr Q8H8M IV Last administered on 10/11/18 02:24; Admin Dose 125 MLS/HR; Start 10/07/18 at 12:00 IAM BARGER NP Oct 11, 2018 12:43
[2018-10-11] MEDS: TAMSULOSIN (SR) 0.4 MG CAP PO SCH (20:46)
[2018-10-12] VITALS (12 sets, daily range): BP systolic 110–144; BP diastolic 58–90; PULSE 67–101; RESP 17–20
[2018-10-12] MEDS: MEROPENEM 1 GM/50ML(PMX) 50 ML IVPB SCH ×3 (00:21→16:15)
[2018-10-12] MEDS: POTASSIUM CHLORIDE 30 MEQ in SOD CHLORIDE 0.9% 1,000 ML IV SCH ×3 (03:00→16:17)
[2018-10-12] MEDS: POLYETHYLENE GLYCOL 17 GM PACKET PO SCH (09:00)
[2018-10-12] MEDS: DOCUSATE SODIUM 100 MG CAP PO SCH ×2 (09:00→20:42)
[2018-10-12] MEDS: ARIPIPRAZOLE 5 MG TAB PO SCH (09:08)
[2018-10-12] MEDS: NIFEdipine (XL) 30 MG TAB PO SCH (09:08)
[2018-10-12] MEDS: ASPIRIN (EC) 81 MG TAB PO SCH (09:09)
[2018-10-12] MEDS: FLUOXETINE 20 MG CAP PO SCH (09:09)
[2018-10-12] MEDS: LABETALOL 100 MG TAB PO SCH (09:10)
[2018-10-12] MEDS: HEPARIN 5,000 UNIT/1 ML VIAL SC SCH ×2 (09:16→20:50)
--- NOTE | 2018-10-12 15:55 | CONS ---
Date/Time of Note Date/Time of Note DATE: 10/12/18 TIME: 15:50 Assessment/Plan Assessment/Plan Hospital Course ID PROGRESS NOTE CURRENT ABX: DAY # 11 => Merrem s/p Vanco 10/12/1821 10/12/18 05 24H INTERVAL SUMMARY * NO new issues -- still w/ABD pain -- taking clears with plans to advance diet * Supplemental O2 via NC MICRO * 10/01/18 BCx(-) PHYSICAL EXAMINATION: GENERAL: Afebrile, VSS, morbid obese HEENT: AT, NC, anicteric NECK: Supple, trach midline CHEST: Equal chest rise bilaterally, without dyspnea on observation HEART: Pulse RRR ABDOMEN: Soft / NT EXTREMITIES: Warm, dry SKIN: No rash, no diaphoresis ID ASSESSMENT 63 yo M admit with: 1. Severe sepsis=> RESOLVED 2. Acute pancreatitis => Seen by Hepatobiliary Service who recommended IV ABX * Findings of acute pancreatitis on non-contrast CT scan with some air bubbles that were concerning for possible pancreatic necrosis. 3. Acute respiratory failure, likely obesity hypoventilation syndrome 4. Left lower lobe pneumonia 5. Gallstones 6. Morbid obesity ABX ALLERGIES: NKDA INVASIVES: PIV CURRENT ABX: DAY # 11 => Merrem s/p Vanco ID RECOMMENDATIONS/PLAN: Continue current ABX - WBC normalized D/W Dr. Harper options are: * A) DC ABX NOW if Hepatobiliary Surgeon concurs and observe * B) Anticipate 14 day course of ABX then DC ABX and re-assess OFF ABX . Result Diagram: 10/12/1852010/12/18520 Results 24hrs Laboratory Tests Test 10/12/18 05:21 White Blood Count 8.0 Red Blood Count 4.27 L Hemoglobin 12.2 L Hematocrit 37.8 L Mean Corpuscular Volume 88.5 Mean Corpuscular Hemoglobin 28.6 L Mean Corpuscular Hemoglobin Concent 32.3 Red Cell Distribution Width 12.9 Platelet Count 254 Mean Platelet Volume 11.3 H Immature Granulocytes % 0.800 H Neutrophils % 72.5 Lymphocytes % 15.8 Monocytes % 7.6 Eosinophils % 2.9 Basophils % 0.4 Nucleated Red Blood Cells % 0.0 Immature Granulocytes # 0.060 H Neutrophils # 5.8 Lymphocytes # 1.3 Monocytes # 0.6 Eosinophils # 0.2 Basophils # 0.0 Nucleated Red Blood Cells # 0.0 Sodium Level 139 Potassium Level 4.1 Chloride Level 102 Carbon Dioxide Level 31 Anion Gap 6 Blood Urea Nitrogen 11 Creatinine 0.74 Est Glomerular Filtrat Rate mL/min > 60 Glucose Level 123 Calcium Level 8.4 Total Bilirubin 0.0 L Direct Bilirubin 0.00 Indirect Bilirubin 0.0 Aspartate Amino Transf (AST/SGOT) 57 H Alanine Aminotransferase (ALT/SGPT) 50 Alkaline Phosphatase 64 Total Protein 5.9 L Albumin 3.0 L Globulin 2.90 Albumin/Globulin Ratio 1.03 Lipase 337 H Consultation Date/Type/Reason Admit Date/Time Oct 02, 2018 at 19:02 Initial Consult Date 10/03/18 Requesting Provider: ASHLEY NICOLE MD Exam/Review of Systems Vital Signs Vitals Vital Signs Date Temp Pulse Resp B/P (MAP) Pulse Ox O2 O2 Flow FiO2 Time Delivery Rate 10/12/18 98.0 68 18 110/67 97 15:16 (81) 10/12/18 Nasal 3.0 08:19 Cannula Intake and Output 10/11/18 10/11/18 10/12/18 1515:00 23:00 07:00 IntakeIntake Total 50 ml 1250 ml 1465 ml OutputOutput Total 800 ml BalanceBalance 50 ml 450 ml 1465 ml Medications Medications Current Medications IV Flush (NS 3 ml) 3 ml PER PROTOCOL IV ; Start 10/02/18 at 19:30 Hydromorphone HCl (Dilaudid) 0.5 mg Q4H PRN IV SEVERE PAIN LEVEL 7-10; Start 10/02/18 at 19:30 Heparin Sodium (Porcine) (Heparin (5000 Units/1ml)) 5,000 unit Q12 SC Last administered on 10/12/18at 09:16; Admin Dose 5,000 UNIT; Start 10/02/18 at 21:00 Levalbuterol (Xopenex Neb) 1.25 mg Q4H RESP THERAPY PRN HHN wheezing Last administered on 10/02/18at 23:29; Admin Dose 1.25 MG; Start 10/02/18 at 23:30 Ipratropium [place] (Atrovent 0.02% (Neb)) 0.5 mg Q4H RESP THERAPY PRN HHN SHORTNESS OF BREATH; Start 10/02/18 at 23:30 Aripiprazole (Abilify) 5 mg DAILY PO Last administered on 10/12/18 09:08; Admin Dose 5 MG; Start 10/03/18 at 09:00 Aspirin (Halfprin) 81 mg DAILY PO Last administered on 10/12/18 09:09; Admin Dose 81 MG; Start 10/03/18 at 09:00 Diphenhydramine HCl (Benadryl) 50 mg QHS PRN PO ITCHING; Start 10/03/18 at 00:30 Fluoxetine HCl (Prozac) 40 mg DAILY PO Last administered on 10/12/18 09:09; Admin Dose 40 MG; Start 10/03/18 at 09:00 Labetalol HCl (Normodyne) 300 mg DAILY PO Last administered on 10/12/18 09:10; Admin Dose 300 MG; Start 10/03/18 at 09:00 Nifedipine (Procardia Xl) 30 mg DAILY PO Last administered on 10/12/18 09:08; Admin Dose 30 MG; Start 10/03/18 at 09:00 Tamsulosin HCl (Flomax) 0.4 mg HS PO Last administered on 10/11/18 20:46; Admin Dose 0.4 MG; Start 10/03/18 at 21:00 Docusate Sodium (Colace) 200 mg BID PO Last administered on 10/11/18 20:46; Admin Dose 200 MG; Start 10/04/18 at 01:00 Polyethylene Glycol (Miralax) 17 gm DAILY PO Last administered on 10/11/18 08:58; Admin Dose 17 GM; Start 10/04/18 at 01:00 Meropenem/Sodium Chloride 50 ml @ 100 mls/hr Q8H IVPB Last administered on 10/12/18 09:39; Admin Dose 100 MLS/HR; Start 10/04/18 at 01:00 Potassium Chloride 30 meq/ Sodium Chloride 1,015 ml @ 125 mls/hr Q8H8M IV Last administered on 10/12/18 03:00; Admin Dose 125 MLS/HR; Start 10/07/18 at 12:00 IAM BARGER NP Oct 12, 2018 15:55
--- NOTE | 2018-10-12 17:41 | PN ---
Date/Time of Note Date/Time of Note DATE: 10/12/18 TIME: 17:36 Assessment/Plan VTE Prophylaxis Risk score (from Ns)>0 risk: 7 [place] [facility] [place] Pharmacological prophylaxis: NA/contraindicated Pharm contraindication: other Lines/Catheters [facility] Type [facility] Peripheral IV Urinary Cath still in place: No Assessment/Plan Hospital Course 1. Pancreatitis likely secondary to gallstones with superimposed infection DC IV fluids Patient is now status post 11 days of IV antibiotics, DC today and monitor off antibiotics General surgery and hepatobiliary surgery consultations appreciated, no indication for surgery for pancreatitis per hepatobiliary surgeon Eventual lap afshan Pain is controlled Patient is tolerating a soft diet, advance to regular starting in the a.m. Lipase has improved 2. Depression Continue home meds 3. Hypoxia secondary to fluid overload-resolved 4. History of hypertension Continue home meds 5. Super morbid obesity Dietary consultation 6. Debility secondary to obesity Patient was walking only minimally at baseline and now requires assistance for ambulation emergency department manager to arrange for senior care placement Continue PT Prophylaxis: SCD DC planning: Have discontinued antibiotics and fluids today, advance diet to regular starting tomorrow, anticipate DC to a snf facility in the next 1-2 days if tolerates a regular diet and is stable off antibiotics Result Diagram: 10/12/1852010/12/18520 Results 24hrs Laboratory Tests Test 10/12/18 05:21 White Blood Count 8.0 Red Blood Count 4.27 L Hemoglobin 12.2 L Hematocrit 37.8 L Mean Corpuscular Volume 88.5 Mean Corpuscular Hemoglobin 28.6 L Mean Corpuscular Hemoglobin Concent 32.3 Red Cell Distribution Width 12.9 Platelet Count 254 Mean Platelet Volume 11.3 H Immature Granulocytes % 0.800 H Neutrophils % 72.5 Lymphocytes % 15.8 Monocytes % 7.6 Eosinophils % 2.9 Basophils % 0.4 Nucleated Red Blood Cells % 0.0 Immature Granulocytes # 0.060 H Neutrophils # 5.8 Lymphocytes # 1.3 Monocytes # 0.6 Eosinophils # 0.2 Basophils # 0.0 Nucleated Red Blood Cells # 0.0 Sodium Level 139 Potassium Level 4.1 Chloride Level 102 Carbon Dioxide Level 31 Anion Gap 6 Blood Urea Nitrogen 11 Creatinine 0.74 Est Glomerular Filtrat Rate mL/min > 60 Glucose Level 123 Calcium Level 8.4 Total Bilirubin 0.0 L Direct Bilirubin 0.00 Indirect Bilirubin 0.0 Aspartate Amino Transf (AST/SGOT) 57 H Alanine Aminotransferase (ALT/SGPT) 50 Alkaline Phosphatase 64 Total Protein 5.9 L Albumin 3.0 L Globulin 2.90 Albumin/Globulin Ratio 1.03 Lipase 337 H Subjective 24 Hr Interval Summary Constitutional: no complaints Exam/Review of Systems Vital Signs Vitals Vital Signs Date Temp Pulse Resp B/P (MAP) Pulse Ox O2 O2 Flow FiO2 Time Delivery Rate 10/12/18 67 16:16 10/12/18 98.0 18 110/67 97 15:16 (81) 10/12/18 Nasal 3.0 08:19 Cannula Intake and Output 10/11/18 10/11/18 10/12/18 1414:59 22:59 06:59 IntakeIntake Total 50 ml 1250 ml 1465 ml OutputOutput Total 800 ml BalanceBalance 50 ml 450 ml 1465 ml Exam Constitutional: alert, oriented Respiratory: clear to auscultation Cardiovascular: regular rate and rhythm Gastrointestinal: soft; No distended Musculoskeletal: nl extremities to inspection Medications Medications Current Medications IV Flush (NS 3 ml) 3 ml PER PROTOCOL IV ; Start 10/02/18 at 19:30 Hydromorphone HCl (Dilaudid) 0.5 mg Q4H PRN IV SEVERE PAIN LEVEL 7-10; Start 10/02/18 at 19:30 Heparin Sodium (Porcine) (Heparin (5000 Units/1ml)) 5,000 unit Q12 SC Last administered on 10/12/18at 09:16; Admin Dose 5,000 UNIT; Start 10/02/18 at 21:00 Levalbuterol (Xopenex Neb) 1.25 mg Q4H RESP THERAPY PRN HHN wheezing Last administered on 10/02/18at 23:29; Admin Dose 1.25 MG; Start 10/02/18 at 23:30 Ipratropium [place] (Atrovent 0.02% (Neb)) 0.5 mg Q4H RESP THERAPY PRN HHN SHORTNESS OF BREATH; Start 10/02/18 at 23:30 Aripiprazole (Abilify) 5 mg DAILY PO Last administered on 10/12/18at 09:08; Admin Dose 5 MG; Start 10/03/18 at 09:00 Aspirin (Halfprin) 81 mg DAILY PO Last administered on 10/12/18 09:09; Admin Dose 81 MG; Start 10/03/18 at 09:00 Diphenhydramine HCl (Benadryl) 50 mg QHS PRN PO ITCHING; Start 10/03/18 at 00:30 Fluoxetine HCl (Prozac) 40 mg DAILY PO Last administered on 10/12/18 09:09; Admin Dose 40 MG; Start 10/03/18 at 09:00 Labetalol HCl (Normodyne) 300 mg DAILY PO Last administered on 10/12/18 09:10; Admin Dose 300 MG; Start 10/03/18 at 09:00 Nifedipine (Procardia Xl) 30 mg DAILY PO Last administered on 10/12/18 09:08; Admin Dose 30 MG; Start 10/03/18 at 09:00 Tamsulosin HCl (Flomax) 0.4 mg HS PO Last administered on 10/11/18 20:46; Admin Dose 0.4 MG; Start 10/03/18 at 21:00 Docusate Sodium (Colace) 200 mg BID PO Last administered on 10/11/18 20:46; Admin Dose 200 MG; Start 10/04/18 at 01:00 Polyethylene Glycol (Miralax) 17 gm DAILY PO Last administered on 10/11/18 08:58; Admin Dose 17 GM; Start 10/04/18 at 01:00 Meropenem/Sodium Chloride 50 ml @ 100 mls/hr Q8H IVPB Last administered on 10/12/18 16:15; Admin Dose 100 MLS/HR; Start 10/04/18 at 01:00 Potassium Chloride 30 meq/ Sodium Chloride 1,015 ml @ 125 mls/hr Q8H8M IV Last administered on 10/12/18 16:17; Admin Dose 125 MLS/HR; Start 10/07/18 at 12:00 TRIP MONTOYA Oct 12, 2018 17:41
[2018-10-12] MEDS: TAMSULOSIN (SR) 0.4 MG CAP PO SCH (20:42)
[2018-10-13] VITALS (9 sets, daily range): BP systolic 110–136; BP diastolic 71–86; PULSE 63–104; RESP 18–20
--- NOTE | 2018-10-13 08:51 | PN ---
Date/Time of Note Date/Time of Note DATE: 10/13/18 TIME: 08:51 Assessment/Plan VTE Prophylaxis Risk score (from Ns)>0 risk: 9 SCD applied (from Ns): Yes Pharmacological prophylaxis: NA/contraindicated Pharm contraindication: low risk/ambulating Lines/Catheters IV Catheter Type (from Nrs): Peripheral IV Urinary Cath still in place: No Assessment/Plan Assessment/Plan 1. Pancreatitis likely secondary to gallstones with superimposed infection- improving - Lipase is trending up on normal diet and will need to monitor. Tolerating PO intake without any pain, nausea, or vomiting - Fluids and Antibiotics d/c yesterday and monitoring for continued improvement - General surgery on board and recommendations evaluation with hepatobiliary services given patient at risk for developing pancreatic necrosis, infection, abscess, with need for debridement. Unable to provide these services but overall condition remains stable at this time without need for emergent transfer - Hepatobiliary on board as well and appreciate recommendations. No need for surgery at this time and continue current treatment 2. Depression - Continue home meds 3. Hypoxia secondary to fluid overload-resolved 4. History of hypertension - Continue home meds 5. Morbid obesity - Nutritional counseling provided 6. Debility secondary to obesity - PT/OT on board - SNF placement pending 7. Disposition - Will need to monitor for abdominal pain with PO intake given diet was advanced - SNF placement pending insurance approval Result Diagram: 10/13/1823 10/13/18 0523 Results 24hrs Laboratory Tests Test 10/13/18 05:23 White Blood Count 7.2 Red Blood Count 4.41 L Hemoglobin 12.6 L Hematocrit 38.4 L Mean Corpuscular Volume 87.1 Mean Corpuscular Hemoglobin 28.6 L Mean Corpuscular Hemoglobin Concent 32.8 Red Cell Distribution Width 12.5 Platelet Count 239 Mean Platelet Volume 10.8 H Immature Granulocytes % 0.600 H Neutrophils % 65.8 Lymphocytes % 21.5 Monocytes % 8.2 Eosinophils % 3.5 Basophils % 0.4 Nucleated Red Blood Cells % 0.0 Immature Granulocytes # 0.040 H Neutrophils # 4.7 Lymphocytes # 1.5 Monocytes # 0.6 Eosinophils # 0.3 Basophils # 0.0 Nucleated Red Blood Cells # 0.0 Sodium Level 138 Potassium Level 3.9 Chloride Level 97 Carbon Dioxide Level 35 H Anion Gap 6 Blood Urea Nitrogen 10 Creatinine 0.66 Est Glomerular Filtrat Rate mL/min > 60 Glucose Level 121 Calcium Level 8.7 Total Bilirubin 0.2 Direct Bilirubin 0.00 Indirect Bilirubin 0.2 Aspartate Amino Transf (AST/SGOT) 45 Alanine Aminotransferase (ALT/SGPT) 58 Alkaline Phosphatase 57 Total Protein 6.2 Albumin 3.1 L Globulin 3.10 Albumin/Globulin Ratio 1.00 Lipase 332 H Subjective 24 Hr Interval Summary Free Text/Dictation Patient doing well and tolerating PO intake with no issues. No acute overnight events. Exam/Review of Systems Vital Signs Vitals Vital Signs Date Temp Pulse Resp B/P (MAP) Pulse Ox O2 O2 Flow FiO2 Time Delivery Rate 10/13/18 104 08:00 10/13/18 98.2 19 128/84 95 Nasal 07:09 (99) Cannula 10/13/18 2.0 28 05:00 Intake and Output 10/12/18 10/12/18 10/13/18 1515:00 23:00 07:00 IntakeIntake Total 50 ml 1300 ml 220 ml OutputOutput Total 1900 ml 850 ml BalanceBalance 50 ml -600 ml -630 ml Exam General: Patient is laying in bed, no acute distress. answering questions appropriately Mentation: Patient is alert and oriented x4 Neck: Supple, nontender, midline Respiratory: Clear to auscultation bilaterally. diminished. no wheezing or rhonchi Cardiovascular: regular rate and rhythm. no obvious murmurs Gastrointestinal: soft, non-tender to palpation, protuberant, ventral hernia, bowel sounds heard. Neurological: Moves all extremities spontaneously Skin: No new skin lesions Medications Medications Current Medications IV Flush (NS 3 ml) 3 ml PER PROTOCOL IV ; Start 10/02/18 at 19:30 Hydromorphone HCl (Dilaudid) 0.5 mg Q4H PRN IV SEVERE PAIN LEVEL 7-10; Start 10/02/18 at 19:30 Heparin Sodium (Porcine) (Heparin (5000 Units/1ml)) 5,000 unit Q12 SC Last administered on 10/12/18at 20:50; Admin Dose 5,000 UNIT; Start 10/02/18 at 21:00 Levalbuterol (Xopenex Neb) 1.25 mg Q4H RESP THERAPY PRN HHN wheezing Last administered on 10/02/18at 23:29; Admin Dose 1.25 MG; Start 10/02/18 at 23:30 Ipratropium [place] (Atrovent 0.02% (Neb)) 0.5 mg Q4H RESP THERAPY PRN HHN SHORTNESS OF BREATH; Start 10/02/18 at 23:30 Aripiprazole (Abilify) 5 mg DAILY PO Last administered on 10/12/18 09:08; Admin Dose 5 MG; Start 10/03/18 at 09:00 Aspirin (Halfprin) 81 mg DAILY PO Last administered on 10/12/18 09:09; Admin Dose 81 MG; Start 10/03/18 at 09:00 Diphenhydramine HCl (Benadryl) 50 mg QHS PRN PO ITCHING; Start 10/03/18 at 00:30 Fluoxetine HCl (Prozac) 40 mg DAILY PO Last administered on 10/12/18 09:09; Admin Dose 40 MG; Start 10/03/18 at 09:00 Labetalol HCl (Normodyne) 300 mg DAILY PO Last administered on 10/12/18 09:10; Admin Dose 300 MG; Start 10/03/18 at 09:00 Nifedipine (Procardia Xl) 30 mg DAILY PO Last administered on 10/12/18 09:08; Admin Dose 30 MG; Start 10/03/18 at 09:00 Tamsulosin HCl (Flomax) 0.4 mg HS PO Last administered on 10/12/18 20:42; Admin Dose 0.4 MG; Start 10/03/18 at 21:00 Docusate Sodium (Colace) 200 mg BID PO Last administered on 10/12/18 20:42; Admin Dose 200 MG; Start 10/04/18 at 01:00 Polyethylene Glycol (Miralax) 17 gm DAILY PO Last administered on 10/11/18 08:58; Admin Dose 17 GM; Start 10/04/18 at 01:00 GERMAN NAVARRO MD Oct 13, 2018 08:51
[2018-10-13] MEDS: POLYETHYLENE GLYCOL 17 GM PACKET PO SCH (09:00)
[2018-10-13] MEDS: DOCUSATE SODIUM 100 MG CAP PO SCH (09:20)
[2018-10-13] MEDS: NIFEdipine (XL) 30 MG TAB PO SCH (09:21)
[2018-10-13] MEDS: ARIPIPRAZOLE 5 MG TAB PO SCH (09:21)
[2018-10-13] MEDS: FLUOXETINE 20 MG CAP PO SCH (09:21)
[2018-10-13] MEDS: ASPIRIN (EC) 81 MG TAB PO SCH (09:21)
[2018-10-13] MEDS: LABETALOL 100 MG TAB PO SCH (09:21)
[2018-10-13] MEDS: HEPARIN 5,000 UNIT/1 ML VIAL SC SCH (09:30)
--- NOTE | 2018-10-13 10:41 | PN ---
Date/Time of Note Date/Time of Note DATE: 10/13/18 TIME: 10:29 Assessment/Plan Lines/Catheters IV C[facility]ter Type (from [facility] Peripheral IV Bull in Place (from [facility]): No Assessment/Plan Chief Complaint/Hosp Course 1. Acute pancreatitis possibly secondary to gallstones versus other etiologies. Gas bubbles with suggestions of infection with gas-forming bacteria. As we are not a hepatobiliary service, patient needs hepatobiliary surgeon to be involved in case he develops pancreatic necrosis, infection, abscess, with need for debridement; Hepatobiliary on the case; +bowel function; Clears with slight elevation of lipase. -continue fluids and advance as tolerated -judicious IV fluid -Pain control prn -HBS follow up 2. Tiny gallstones -As above -We will likely benefit from eventual cholecystectomy 3. BMI 39 with morbid obesity -Highly encourage eventual nutritional optimization -Highly encouraged eventual exercise 4. Hypertension -Diet and medication optimization -Highly encouraged weight loss 5. Prediabetes -Nutrition optimization -Highly encouraged weight loss 6. Schizophrenia, mild per family -Psychiatric optimization 7. Dementia -Medical management 8. Leukocytosis: resolved -as above 8. Respiratory distress:s/p high flow o2: improved -supportive -judicious fluids -as above Thank you, Subjective 24 Hr Interval Summary No abdominal pain, n/v on clears. Some elevation of Lipase. No fevers, chills, sob, congested cough, cp, palpitations, mitchell, dizziness, diarrhea, dysuria. Exam/Review of Systems Vital Signs Vitals Vital Signs Date Temp Pulse Resp B/P (MAP) Pulse Ox O2 O2 Flow FiO2 Time Delivery Rate 10/13/18 104 08:00 10/13/18 98.2 19 128/84 95 Nasal 07:09 (99) Cannula 10/13/18 2.0 28 05:00 Intake and Output 10/12/18 10/12/18 10/13/18 1515:00 23:00 07:00 IntakeIntake Total 50 ml 1300 ml 220 ml OutputOutput Total 1900 ml 850 ml BalanceBalance 50 ml -600 ml -630 ml Exam Free Text/Dictation Constitutional: alert, oriented, NAD, obese Psych: nl mood No confusion Head: normocephalic, atraumatic Eyes: nl conjunctiva, EOMI, PERRL; No icteric ENMT: nl external ears & nose, nl lips & teeth Neck: supple, non-tender; No jvd Respiratory: normal air movement, nonlabored breathing No congested cough, No wheezing Cardiovascular: regular rate and rhythm No edema Gastrointestinal: distended/obese, nontender, other (Ventral umbilical hernia); soft No rebound or guarding or rigid Genitourinary - Male: nl scrotum Musculoskeletal: nl extremities to inspection; No joint tenderness Extremities: normal pulses; No calf tenderness, No cyanosis Neurological: nl mental status, nl speech, nl strength Skin: nl turgor; No rash or lesions, No diaphoresis Lymph: nl lymph nodes Results Result Diagram: 10/13/18 0523 10/13/18 0523 RAIN JARQUIN MD Oct 13, 2018 10:40
--- NOTE | 2018-10-13 14:37 | PDOCDIS ---
Discharge Instructions DIAGNOSIS Discharge Diagnosis 1. Pancreatitis likely secondary to gallstones with superimposed infection- improving 2. Depression 3. Hypoxia secondary to fluid overload-resolved 4. History of hypertension 5. Morbid obesity 6. Debility secondary to obesity CONDITION [id number] Patient Condition: [id number] Stable HOME CARE INSTRUCTIONS: [id number] Diet Instructions: Rhted1g Low Fat /Cholesterol FOLLOW UP/APPOINTMENTS Follow-up Plan 1. Follow up with your primary care physician in 1 week 2. You will need a referral to hepatobiliary surgeon for close monitoring of your pancreatitis given risk of developing further complications in the future 3. You will need to continue on 2L of Oxygen especially when ambulating 4. Continue all other medications as prescribed 5. If symptoms return or worsen, please go to your closest emergency department GERMAN NAVARRO MD Oct 13, 2018 14:37
--- NOTE | 2018-10-13 18:36 | DS ---
Date/Time of Note Date/Time of Note DATE: 10/13/18 TIME: 18:29 Discharge Summary Admission/Discharge Info Admit Date/Time Oct 02, 2018 at 19:02 Discharge Date/Time 10/13/18 at 1900 Discharge Diagnosis 1. Pancreatitis likely secondary to gallstones with superimposed infection- improving 2. Depression 3. Hypoxia secondary to fluid overload-resolved 4. History of hypertension 5. Morbid obesity 6. Debility secondary to obesity Patient Condition: Stable Consults Hepatobiliary surgery- Dr. Lau General Surgery- Dr. Panda Infectious disease- Dr. Harper Procedures PROCEDURE: XR Chest. CLINICAL INDICATION: Chest pain TECHNIQUE: Single frontal radiograph of the chest. COMPARISON: DR CHEST 10/02/2018 FINDINGS: Slightly increased left basilar atelectasis/infiltrate. No pleural effusion. No pneumothorax. Cardiomegaly unchanged. Vascular calcifications of the aorta are present compatible with atherosclerosis. IMPRESSION: Slightly increased left basilar atelectasis/infiltrate. PA and lateral views recommended for further evaluation. RPTAT: AADD .Erik Sheikh MD, MD Date Time Electronically viewed and signed by .Erik Sheikh MD, MD on 10/06/2018 16:17 PROCEDURE: DX Chest 1 View CLINICAL INDICATION: Short of breath and wheezing. TECHNIQUE: AP Portable chest. COMPARISON: None FINDINGS: Apical lordotic projection. Normal cardiac mediastinal configuration. Aortic calcified plaque not visualized. No CHF or hilar enlargement. Increased markings in the left lower lobe. Right lung is clear. IMPRESSION: Patchy left lower lobe infiltrate/atelectasis. RPTAT: HLRS Physician Nory Date Time Electronically viewed and signed by Physician Nory on 10/02/2018 23:40 PROCEDURE: CT abdomen and pelvis without contrast. CLINICAL INDICATION: Abdominal Pain TECHNIQUE: CT scan of the abdomen and pelvis without contrast was performed and is reconstructed at 2.5 mm contiguous axial intervals from the dome of the diaphragm to the inferior pubic rami.. The patient was scanned without intravenous contrast. Sagittal and coronal reformatted images were obtained from the axial source images. The calculated radiation dose measures 1608 mGy centimeters. The CTDI measures 24 mGy. Individualized dose optimization technique was used for the performance of this exam. This included 1. Automated exposure control. 2. Adjustment of the mA and / or kV according to the patient's size. 3. Use of iterative reconstructed technique. COMPARISON: None. FINDINGS: The lung bases are clear of any infiltrate or nodule. No effusion is seen. Liver is enlarged measuring 23.4 cm in length. There is fatty infiltration. No mass or ductal dilatation is present. There are tiny stones in the dependent gallbladder. No splenic or adrenal abnormalities present. no pancreatic mass or ductal dilatation is present. There is stranding of the peripancreatic fat in the lesser sac. No discrete collection or extraluminal gas is seen. Findings are compatible with pancreatitis. There is small volume of fluid tracking along the right and left paracolic gutter with trace pelvic ascites. However, there are also multiple small pockets of extraluminal gas visualized posterior and superior to the distal tail of the pancreas and posterior and superior to the head of the pancreas. Findings likely represent evidence of superimposed infection with gas-forming organism. Kidneys are of normal size and contour. No hydronephrosis or masses seen. There is a 4 mm nonobstructing stone in the mid to upper pole of the right kidney. Ureters are of normal course and caliber with no stone. No bladder mass or stone is present. Prostate and seminal vesicles are normal. There is no aneurysm. No adenopathy is present. No bowel mass or obstruction is present. The appendix is normal. No pneumoperitoneum is visualized. The osseous structures are intact. IMPRESSION: Stranding peripancreatic fat with small volume ascites - rule out pancreatitis. Multiple small pockets of extraluminal gas along the head and tail of pancreas as described. Rule out superimposed infection with gas-forming organism. No discrete abscess identified. 4 mm nonobstructing right renal calculus. Tiny gallstones. No choledocholithiasis seen. .Anthony Ku MD, Date Time Electronically viewed and signed by .Anthony Ku MD, on 10/01/2018 17:38 PROCEDURE: XR Chest. CLINICAL INDICATION: Shortness of breath. TECHNIQUE: Single frontal view. COMPARISON: None. FINDINGS: The lungs are clear. The heart size is normal. There is no pleural effusion. There is no pneumothorax. IMPRESSION: 1. Normal chest radiograph. RPTAT: QQ .Jovani Henderson MD, MD Date Time Electronically viewed and signed by .Jovani Henderson MD, MD on 10/01/2018 16:24 Hx of Present Illness 63 yo male with h/o morbid obesity, DMII, schizophrenia who presented yesterday with abdominal pain Patient found to have severe pancreatitis with gas and possible gangrene. Transfer to higher level of care was recommended by consulting general surgeon Dr Panda. However, Dr Shields from ED says he has tried without success to have the patient transferred so he will be admitted to this hospital under guidance from chief of medicine. Patient's pain currently controlled Hospital Course Patient was admitted for conservative management given unsuccessful attempts to transfer to tertiary center with hepatobiliary services. Patient was evaluated by General surgery who recommended judicious IVF and IV antibiotics. Patient was evaluated by hepatobiliary surgeon and recommended conservative management, adjustments to IV antibiotics, and IVF as well. Patient was started on high nikolai w as well and found with lower lobe infiltrate. Infectious disease was consulted for antibiotic recommendations and patient continued on IV antibiotics. Patients overall condition improved and was weaned off high flow O2. Patient was tolerating nasal cannula which was continued given he was desaturating with ambulation. Diet was advance as lipase improved and was tolerating regular diet without any issues. Fluids and IV antibiotics were discontinued with continued improvement in overall condition. Due to deconditioning during hospitalization, recommendations were made for SNF placement prior to discharge home. Patient was also stressed to follow up with PCP for referral to hepatobiliary surgeon for close monitoring of pancreas given risk of developing necrotizing pancreatitis. Patients presenting symptoms improved significantly and on day of discharge, vitals and physical exam were stable. Patient was discharged to SNF in stable condition. Home Meds Reported Medications Diphenhydramine Hcl* (Benadryl*) 50 Mg Cap, 50 MG PO QHS PRN for ITCHING, CAP 10/01/18 Aripiprazole* (Abilify*) 5 Mg Tab, 5 MG PO DAILY, #30 TAB 10/01/18 Aspirin* (Aspirin* EC) 81 Mg Tablet.dr, 81 MG PO DAILY, TAB 10/01/18 Fluoxetine Hcl* (Fluoxetine Hcl*) 20 Mg Capsule, 40 MG PO DAILY, CAP 10/01/18 Nifedipine* (Nifedipine ER*) 30 Mg Tablet.sa, 30 MG PO DAILY, TAB.SA 10/01/18 Labetalol Hcl* (Labetalol Hcl*) 300 Mg Tablet, 300 MG PO DAILY, TAB 10/01/18 Tamsulosin Hcl* (Tamsulosin Hcl*) 0.4 Mg Cap.er.24h, 0.4 MG PO HS, CAP 10/01/18 Discontinued Reported Medications Benazepril Hcl* (Benazepril Hcl*) 40 Mg Tablet, 40 MG PO DAILY, #30 TAB 10/01/18 Chlorthalidone* (Chlorthalidone*) 25 Mg Tablet, 25 MG PO DAILY, TAB 10/01/18 Hydrochlorothiazide* (Hydrochlorothiazide*) 12.5 Mg Tablet, 12.5 MG PO DAILY, #30 TAB 10/01/18 Follow-up Plan 1. Follow up with your primary care physician in 1 week 2. You will need a referral to hepatobiliary surgeon for close monitoring of your pancreatitis given risk of developing further complications in the future 3. You will need to continue on 2L of Oxygen especially when ambulating 4. Continue all other medications as prescribed 5. If symptoms return or worsen, please go to your closest emergency department Primary Care Provider Care Physician No Primary Time spent on discharge: > 30 minutes Pending Labs Laboratory Tests Test 10/13/18 05:23 White Blood Count 7.2 10^3/ul (4.8-10.8) Red Blood Count 4.41 10^6/ul (4.70-6.10) Hemoglobin 12.6 g/dl (14.0-18.0) Hematocrit 38.4 % (42.0-52.0) Mean Corpuscular Volume 87.1 fl (82.0-101.0) Mean Corpuscular Hemoglobin 28.6 pg (29.0-33.0) Mean Corpuscular Hemoglobin Concent 32.8 g/dl (32.0-37.0) Red Cell Distribution Width 12.5 % (11.5-14.5) Platelet Count 239 10^3/UL (140-415) Mean Platelet Volume 10.8 fl (7.4-10.4) Immature Granulocytes % 0.600 % (0.001-0.429) Neutrophils % 65.8 % (39.0-77.0) Lymphocytes % 21.5 % (15.0-51.0) Monocytes % 8.2 % (0.0-11.0) Eosinophils % 3.5 % (0.0-7.0) Basophils % 0.4 % (0.0-2.0) Nucleated Red Blood Cells % 0.0 /100WBC (0.0-0.0) Immature Granulocytes # 0.040 10^3/ul (0.0-0.031) Neutrophils # 4.7 10^3/ul (1.6-7.5) Lymphocytes # 1.5 10^3/ul (0.8-2.9) Monocytes # 0.6 10^3/ul (0.3-0.9) Eosinophils # 0.3 10^3/ul (0.0-0.5) Basophils # 0.0 10^3/ul (0.0-0.1) Nucleated Red Blood Cells # 0.0 10^3/ul (0.0-0.0) Sodium Level 138 mmol/L (135-144) Potassium Level 3.9 mmol/L (3.5-5.1) Chloride Level 97 mmol/L (97-110) Carbon Dioxide Level 35 mmol/L (21-31) Anion Gap 6 (5-13) Blood Urea Nitrogen 10 mg/dl (7-20) Creatinine 0.66 mg/dl (0.61-1.24) Est Glomerular Filtrat Rate mL/min > 60 mL/min (>60) Glucose Level 121 mg/dl (70-220) Calcium Level 8.7 mg/dl (8.4-10.2) Total Bilirubin 0.2 mg/dl (0.2-1.3) Direct Bilirubin 0.00 mg/dl (0.00-0.20) Indirect Bilirubin 0.2 mg/dl (0-1.1) Aspartate Amino Transf (AST/SGOT) 45 IU/L (15-46) Alanine Aminotransferase (ALT/SGPT) 58 IU/L (13-69) Alkaline Phosphatase 57 IU/L (42-121) Total Protein 6.2 g/dl (6.1-8.1) Albumin 3.1 g/dl (3.3-4.9) Globulin 3.10 g/dl (1.3-3.2) Albumin/Globulin Ratio 1.00 Lipase 332 U/L (23-300) GERMAN NAVARRO MD Oct 13, 2018 18:36
== END 2018-10-13 19:27 | DRG 871 ==
LOC: E/R 15:33 → 5EC 10-02 19:02 → 6WM 10-03 00:56
PROVIDERS: ADMIT Internal Medicine; ATTEND Internal Medicine
PROC: 5A0935Z Assistance with Respiratory Ventilation, Less than 24 Consecutive Hours (ICD-10-PCS; principal; 2018-10-03)
DX: A41.9 Sepsis, unspecified organism (principal); K85.10 Biliary acute pancreatitis without necrosis or infection; J96.01 Acute respiratory failure with hypoxia; J18.9 Pneumonia, unspecified organism; E66.01 Morbid (severe) obesity due to excess calories; Z68.38 Body mass index [BMI] 38.0-38.9, adult; E87.70 Fluid overload, unspecified; F32.9 Major depressive disorder, single episode, unspecified; I10 Essential (primary) hypertension; R53.81 Other malaise; R73.03 Prediabetes; F20.9 Schizophrenia, unspecified; F03.90 Unspecified dementia, unspecified severity, without behavioral disturbance, psychotic disturbance, mood disturbance, and anxiety
CPT/HCPCS: 36415; 36600; 71045; 74176; 80048; 80053; 80061; 80202; 81001; 82803; 82962; 83036; 83605; 83690; 84484; 85025; 87040; 93005; 93306; 94640; 94664; 96374; 96375; 96376; 97110; 97116; 97162; 97530; A4310; J0692; J1644; J1940; J2185; J2405; J2543; J3370; J3480; J7030; J7050; P9047

== ENCOUNTER 2018-12-30 14:06 | Emergency (ER) | payer OTHER ==
[~2018-12-30] VITALS: Ht 172.7 cm; Wt 134.2 kg
[~2018-12-30 14:06] MED LIST changes: -ARIP2TAB17 PO; +ARIP5TAB14 PO; +ASPI-817 PO; -ASPI81TA52 PO; -BENA40TA56 PO; -CHLO25TA2 PO; -HYDR12.58 PO; -TAMS-14 PO; +TAMS0.4C2 PO
[2018-12-30 14:17] VITALS: Ht 172.7 cm; Wt 134.2 kg
--- NOTE | 2018-12-30 19:58 | ERD ---
ER Documentation Chief Complaint Chief Complaint c/o left sided abd pain, Hx: pancreatitis HPI This is a 63-year-old man complaining of bilateral flank pain beginning this morning, he has had some nausea and a couple episodes of clear nonbloody nonbilious emesis as well. Patient denies fevers or chills, no diarrhea, no complaints of chest pain or shortness of breath. ROS All systems reviewed and are negative except as per history of present illness. Medications Home Meds Active Scripts Ibuprofen* (Motrin*) 600 Mg Tab, 600 MG PO Q8 PRN for PAIN AND/OR INFLAMMATION, #30 TAB Prov:SEPIDEH ABREU MD 12/30/18 Reported Medications Diphenhydramine Hcl* (Benadryl*) 50 Mg Cap, 50 MG PO QHS PRN for ITCHING, CAP 10/01/18 Aripiprazole* (Abilify*) 5 Mg Tab, 5 MG PO DAILY, #30 TAB 10/01/18 Aspirin* (Aspirin* EC) 81 Mg Tablet.dr, 81 MG PO DAILY, TAB 10/01/18 Fluoxetine Hcl* (Fluoxetine Hcl*) 20 Mg Capsule, 40 MG PO DAILY, CAP 10/01/18 Nifedipine* (Nifedipine ER*) 30 Mg Tablet.sa, 30 MG PO DAILY, TAB.SA 10/01/18 Labetalol Hcl* (Labetalol Hcl*) 300 Mg Tablet, 300 MG PO DAILY, TAB 10/01/18 Tamsulosin Hcl* (Tamsulosin Hcl*) 0.4 Mg Cap.er.24h, 0.4 MG PO HS, CAP 10/01/18 Allergies Allergies: Coded Allergies: No Known Allergy (Unverified , 10/01/18) PMhx/Soc History of cholelithiasis and pancreatitis, depression, hypertension, morbid obesity History of Surgery: No Anesthesia Reaction: No Hx Neurological Disorder: No Hx Respiratory Disorders: Yes (sleep apnea) Hx Cardiac Disorders: Yes (htn) Hx Psychiatric Problems: Yes (schizpphrenic) Hx Miscellaneous Medical Probl: Yes (PANCREATITIS,dementia,HTN,schizophrenia,DM,obesity) Hx Alcohol Use: No Hx Substance Use: No Hx Tobacco Use: No Smoking Status: Never smoker FmHx Family History: diabetes Physical Exam Vitals Vital Signs Date Temp Pulse Resp B/P (MAP) Pulse Ox O2 O2 Flow FiO2 Time Delivery Rate 12/30/18 55 18 137/92 97 Room Air 22:44 (107) 12/30/18 58 18 139/92 99 Room Air 21:53 (108) 12/30/18 97.9 64 20 154/98 96 14:17 (116) Physical Exam Const: No acute distress, mild discomfort, afebrile Head: Atraumatic Eyes: Normal Conjunctiva ENT: Normal External Ears, Nose and Mouth. Neck: Full range of motion. No meningismus. Resp: Clear to auscultation bilaterally Cardio: Regular rate and rhythm, no murmurs Abd: Soft, protuberant abdomen, nontender, no rigidity or masses palpated exam difficult due to body habitus Skin: No petechiae or rashes Back: No midline or flank tenderness Ext: No cyanosis, or edema Neur: Awake and alert x3, no focal deficits or facial asymmetry Psych: Normal Mood and Affect Result Diagram: 12/30/18200512/30/182005 Results 24 hrs Laboratory Tests Test 12/30/18 20:06 White Blood Count 8.3 10^3/ul Red Blood Count 5.17 10^6/ul Hemoglobin 14.8 g/dl Hematocrit 44.7 % Mean Corpuscular Volume 86.5 fl Mean Corpuscular Hemoglobin 28.6 pg Mean Corpuscular Hemoglobin Concent 33.1 g/dl Red Cell Distribution Width 13.0 % Platelet Count 247 10^3/UL Mean Platelet Volume 10.6 fl Immature Granulocytes % 0.400 % Neutrophils % 62.7 % Lymphocytes % 28.6 % Monocytes % 5.9 % Eosinophils % 1.9 % Basophils % 0.5 % Nucleated Red Blood Cells % 0.0 /100WBC Immature Granulocytes # 0.030 10^3/ul Neutrophils # 5.2 10^3/ul Lymphocytes # 2.4 10^3/ul Monocytes # 0.5 10^3/ul Eosinophils # 0.2 10^3/ul Basophils # 0.0 10^3/ul Nucleated Red Blood Cells # 0.0 10^3/ul Prothrombin Time 13.5 Sec Prothrombin Time Ratio 1.1 INR International Normalized Ratio 1.02 Activated Partial Thromboplast Time 37.9 Sec Sodium Level 142 mmol/L Potassium Level 4.2 mmol/L Chloride Level 102 mmol/L Carbon Dioxide Level 28 mmol/L Anion Gap 12 Blood Urea Nitrogen 16 mg/dl Creatinine 0.95 mg/dl Est Glomerular Filtrat Rate mL/min > 60 mL/min Glucose Level 93 mg/dl Calcium Level 10.7 mg/dl Total Bilirubin 0.5 mg/dl Direct Bilirubin 0.00 mg/dl Indirect Bilirubin 0.5 mg/dl Aspartate Amino Transf (AST/SGOT) 21 IU/L Alanine Aminotransferase (ALT/SGPT) 12 IU/L Alkaline Phosphatase 70 IU/L Troponin I < 0.012 ng/ml Total Protein 8.7 g/dl Albumin 4.9 g/dl Globulin 3.80 g/dl Albumin/Globulin Ratio 1.28 Lipase 99 U/L Current Medications Medications Dose Sig/Andria Start Time Status Last (Trade) Ordered Route PRN Stop Time Admin Dose Reason Admin Sodium 500 ml @ Q1H STAT 12/30/18 DC 12/30/18 Chloride 500 mls/hr IV 20:02 12/30/18 20:10 21:01 Ondansetron 4 mg ONCE STAT 12/30/18 DC 12/30/18 HCl (Zofran IV 20:02 12/30/18 20:10 Inj) 20:03 Ketorolac 15 mg ONCE STAT 12/30/18 DC 12/30/18 Tromethamine IV 20:02 12/30/18 20:10 (Toradol) 20:03 Procedures/MDM IV line was established patient was placed on registered nurse cardiac rhythm strip revealed a sinus rhythm at about 80 bpm with upright P and T waves. Patient was afebrile I administered 500 cc normal saline IV, Toradol 15 mg IV, Zofran 4 mg IV CBC and electrolytes are normal, liver function tests were normal, lipase normal, troponin negative EKG performed, read by me revealed a normal sinus rhythm at 67 bpm, first-degree AV block, normal axis, narrow QRS complex, no concerning ST elevations or depressions noted CT scan of the abdomen and pelvis was performed,IMPRESSION: 1. MINIMAL PERIPANCREATIC FATTY STRANDING, CONCERNING FOR ACUTE PANCREATITIS. RECOMMEND CORRELATION WITH AMYLASE AND LIPASE LEVELS. NO GROSS FOCAL FLUID COLLECTIONS. 2. Fatty liver. 3. No evidence of radiopaque gallstones. 4. 7 mm right-sided nonobstructing nephrolithiasis. No evidence of obstructive uropathy within both kidneys. 5. Sigmoid colon diverticulosis without evidence of duodenitis. 6. Mild prostamegaly. 7. Fat-containing bilateral inguinal hernias. Patient has no signs or symptoms of pancreatitis and he states his pain is com pletely resolved. Of note his flank pain today was a little worse on the left compared to the right which does not correlate with today's CT scan findings. He looks well will be discharged to follow-up with PMD. Differential diagnoses considered, included but not limited to acute coronary syndrome, pulmonary embolism, aortic dissection, abdominal aortic aneurysm, sepsis, stroke, meningitis, encephalitis, pneumonia, appendicitis, cholecystitis, bowel obstruction, pyelonephritis, nephrolithiasis, cystitis, as well as metabolic, hematologic, and electrolyte abnormalities. As well as abscess, cellulitis, fractures, and dislocations. Patient feels much better at this time, and vital signs are normal, symptoms have improved. I did give strict instructions to return to the ED if symptoms continue or worsen, patient will otherwise follow-up with primary care physician. Patient understood instructions and agreed to plan. Disclaimer: Inadvertent spelling and grammatical errors are likely due to EHR/dictation software use and do not reflect on the overall quality of patient care. Also, please note that the electronic time recorded on this note does not necessarily reflect the actual time of the patient encounter. Departure Diagnosis: Primary Impression: Abdominal pain Abdominal location: generalized Qualified Codes: R10.84 - Generalized abdominal pain Additional Impression: Nephrolithiasis Condition: SEPIDEH Cui MD Dec 30, 2018 19:58
[2018-12-30] MEDS ORDERED: ONDANSETRON 4 MG INJ IV STA (20:02)
[2018-12-30] MEDS ORDERED: KETOROLAC 15 MG INJ IV STA (20:02)
[2018-12-30] MEDS ORDERED: SOD CHLORIDE 0.9% 500 ML IV STA (20:02)
[2018-12-30] MEDS ORDERED: IBUP-1542 PO (22:33)
[2018-12-30 22:44] VITALS: BP 137/92; PULSE 55; RESP 18
== END 2018-12-30 22:52 | disposition home or self-care (01) ==
LOC: E/R 14:06
DX: N20.0 Calculus of kidney (principal); I10 Essential (primary) hypertension; E11.9 Type 2 diabetes mellitus without complications; E66.9 Obesity, unspecified; Z68.42 Body mass index [BMI] 45.0-49.9, adult; Z79.82 Long term (current) use of aspirin
CPT/HCPCS: 36415; 74176; 80053; 83690; 84484; 85025; 85610; 85730; 93005; 96374; 96375; J1885; J2405; J7040; Z7502